=== PATIENT | female | born 2000 | race Caucasian/White ===

== ENCOUNTER 2020-05-28 12:44 | Emergency (ER) | payer BC, SELFPAY ==
--- NOTE | ~2020-05-28 | US_ITS ---
EXAMINATION: US OB <=14 wk fetus w TV DATE: 05/28/2020 13:40 INDICATION: Vaginal bleeding during first trimester TECHNIQUE: Real-time pelvic transabdominal and transvaginal ultrasound was performed. COMPARISON: None. FINDINGS: The uterus measures 7.9 x 4.5 x 4.2 cm. No intrauterine gestational sac is identified. The left ovary is not visualized however no left adnexal abnormality is seen. The right ovary measures 2 .3 x 2.2 x 3.5 cm and contains multiple cysts/follicles. There is no free fluid in the pelvis. IMPRESSION: 1. of unknown location. Although no intrauterine gestational sac is seen, this may be due t o early gestation. If the patient is clinically stable, recommend followup with serial beta-hCG and u ltrasound. Reviewed, dictated and finalized at location [facility]. IMPRESSION: 1. of unknown location. Although no intrauterine gestational sac is s een, this may be due to early gestation. If the patient is clinically stable, r ecommend followup with serial beta-hCG and ultrasound.
[2020-05-28 12:55] VITALS: BP 160/101; PULSE 92; RESP 14; TEMP 36.6; O2SAT 99
--- NOTE | 2020-05-28 13:30 | ED.FEMALEGU ---
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 Today developed cramps, vaginal bleeding with a lot of blood clots. Patient is 1 para 0 0. Last menstrual period April 04. Patient does not smoke or drink or uses marijuana, denies any fever, chills, nausea, vomiting. Related Data Allergies Allergy/AdvReac Type Severity Reaction Status Date / Time No Known Allergies Allergy Unverified 10/08/17 03:17 Review of Systems Review of Systems: Narrative: CONSTITUTIONAL: Denies fever, chills, or sweats. EYES: Denies visual changes, redness, or discharge. ENT: Denies rhinorrhea, congestion, sore throat, or otalgia. CARDIOVASCULAR: Denies chest pain, palpitations, or edema. RESPIRATORY: Denies cough or dyspnea. GASTROINTESTINAL: Denies abdominal pain, nausea, vomiting, or diarrhea. GENITOURINARY: Denies dysuria or hematuria. SKIN: Denies rash or itching. MUSCULOSKELETAL: Denies back pain, joint pain, or myalgia. NEUROLOGIC: Denies headache, numbness, or weakness. PSYCHIATRIC: Denies anxiety or depression. PMFSH Family History Family History Mother Family history of thyroid disease Patient's mother is in good health Grandparent Family history of lung cancer Father Patient's father is in good health Sibling Patient's brother is in good health Social History Social History Smoking status: Never smoker Alcohol intake: never Exam Narrative: Exam Narrative: General appearance: Well-developed, well-nourished, anxious Skin: Normal color Chest and respiratory: Airway patent, no respiratory distress, no accessory muscle use Heart: Regular rate/rhythm Abdomen: Soft, nontender, no organomegaly, quiet bowel sounds Vascular: Normal peripheral pulses, normal capillary refill. Musculoskeletal: Normal range of motion, nontender back Neurologic: Alert and oriented ?3, CUT TOBACCO BULKER is normal as tested, no gross motor deficit : External Female Exam: normal external appearance Speculum Exam - Vagina: normal appearance of the vagina and vaginal bleeding (Slight acute vaginal bleeding, 2 long Q-tips were enough to dry the whole v) Bimanual exam- vagina & uterus: normal bimanual exam Bimanual Exam- Adnexa, other: normal adnexae Course Course Emergency Course: Stable Vital Signs Vital signs: Vital Signs Temperature 36.6 C 05/28/20 12:55 Pulse Rate 92 05/28/20 12:55 Respiratory Rate 14 05/28/20 12:55 Blood Pressure 160/101 H 05/28/20 12:55 Pulse Oximetry 99 05/28/20 12:55 Temperature 36.6 C 05/28/20 12:55 Pulse Rate 92 05/28/20 12:55 Respiratory Rate 14 05/28/20 12:55 Blood Pressure 160/101 H 05/28/20 12:55 Pulse Oximetry 99 05/28/20 12:55 MDM - Female Genitourinary MDM Narrative Medical decision making narrative: Early with vaginal bleeding. Ectopic , miscarriage are my concern. Labs, pelvic ultrasound, pelvic exam ordered further plan to follow. Blood work-up and the pelvic ultrasound showed that the patient is not . High likely her home test was false positive patient probably could not determine if was positive or negative. Differential Diagnosis Differential diagnosis: Likely urinary tract infection and other (Miscarriage, ectopic )
[2020-05-28] MEDS: SODIUM CHLORIDE 0.9% IV 1,000 ML 999 ML IV CONT (13:46)
[2020-05-28 13:58] LABS: Add Urine Microscopic? YES; Appearance Urine Cloudy (Clear); Bacteria Urine Trace /hpf; Bilirubin Urine Negative (Negative); Blood Urine 3+ (Negative); Color Urine Yellow (Yellow); Glucose Urine UA Negative (Negative); Ketones Urine Negative (Negative); Leukocyte Esterase Ur Negative LEU/UL (Negative); Mucus Urine Heavy /lpf; Nitrate Urine Negative (Negative); Protein Urine 2+ mg/dL (Negative); RBC Urine >75 /hpf (0-2); Specific Grav Ur 1.025 (1.001-1.035); Squamous Epithelial Cell Urine Many /hpf (Few); Urobilinogen Urine Negative mg/dL (<2.0); WBC Urine 16-20 /hpf
[2020-05-28 14:02] LABS: Basophils Percent Auto 0.6 % (0.2-1.2); Eosinophils Absolute Auto 0.1 K/mm3 (0-0.3); Eosinophils Percent Auto 0.9 % (0-4.4); Hemoglobin 12.3 g/dL (12.0-15.0); Immature Granulocyte Absolute 0.02 K/mm3 (0.00-0.031); Immature Granulocyte Percent A 0.3 % (0-0.5); Lymphocytes Absolute Auto 1.42 K/mm3 (0.9-3.2); Lymphocytes Percent Auto 21.6 % (18.3-44.2); Mean Corpuscular HGB Conc 33.2 g/dl (32-36); Mean Corpuscular Hemoglobin 28.4 pg (26-34); Mean Corpuscular Volume 85.5 fl (80-100); Mean Platelet Volume 9.8 fl (7.4-10.4); Monocytes Absolute Auto 0.5 K/mm3 (0.1-0.6); Monocytes Percent Auto 7.3 % (2.6-8.5); Neutrophils Absolute Auto 4.5 K/mm3 (1.3-6.7); Neutrophils Percent Auto 69.3 % (45.5-73.1); Platelet Count Result 283 k/mm3 (150-375); Red Blood Count 4.33 M/mm3 (4.2-5.4); Red Cell Distribution Width 12.2 % (11.5-14.5); White Blood Count 6.6 K/mm3 (4.5-10.0)
[2020-05-28 14:04] LABS: Alanine Aminotransferase 18 U/L (4-35); Albumin Level 4.2 g/dL (3.5-5.1); Alkaline Phosphatase 34 U/L (38-126); Anion Gap 6 mmol/L (8-16); Aspartate Amino Transferase 30 U/L (14-36); Bilirubin,Total 0.5 mg/dL (0.2-1.3); Blood Urea Nitrogen 8 mg/dL (7-17); Calcium 8.9 mg/dL (8.4-10.2); Carbon Dioxide 23 mmol/L (22-30); Chloride 111 mmol/L (98-107); Estimated CRCL calculation 132 ml/min; Estimated Glomerular Filt Rate > 60; Glucose 114 mg/dL (65-105); Sodium 140 mmol/L (137-145)
[2020-05-28 14:18] LABS: Beta HCG Quantitative < 2.39 mIU/ML
[2020-05-28 15:00] VITALS: BP 154/70; PULSE 66; RESP 12; O2SAT 99
== END 2020-05-28 15:00 | disposition home or self-care (01) ==
PROVIDERS: Emergency Provider Emergency Medicine; PCP Family Medicine
DX: N93.9 Abnormal uterine and vaginal bleeding, unspecified (principal)
CPT/HCPCS: 36415; 76801; 76817; 80053; 81001; 84702; 85025; 85461; 87086; 96360; 99284; J7030

== ENCOUNTER 2020-11-22 15:08 | Outpatient (CLI) | payer BC, SELFPAY | END 2020-11-22 15:09 | disposition home or self-care (01) | LOC: ANHLAB 15:10 | PROVIDERS: PCP Family Medicine; Visit Provider Obstetrics & Gynecology | DX: O36.0130 Maternal care for anti-D [Rh] antibodies, third trimester, not applicable or unspecified (principal); Z3A.00 Weeks of gestation of pregnancy not specified | CPT/HCPCS: 36415; 85461 ==

== ENCOUNTER 2023-06-25 08:12 | Outpatient (CLI) | payer BC, SELFPAY ==
--- NOTE | ~2023-06-25 | US_ITS ---
US breast BI complete DATE: 06/25/2023 10:22 INDICATION: Bilateral upper breast rash and redness since February. Patient is currently breast-feedi ng. TECHNIQUE: Real-time imaging of both complete breasts including all 4 quadrants and subareolar area o f each breast. COMPARISON: None FINDINGS: In the right subareolar area there is a 3.5 x 7x 11 mm cyst or dilated duct. Prominent bila teral ducts. No suspicious mass or shadowing is detected in either breast. IMPRESSION: No sonographic evidence of malignancy Reviewed, dictated and finalized at [facility]. Reviewed, dictated and finalized at location [facility].
== END 2023-06-25 08:13 | disposition home or self-care (01) ==
DX: N64.59 Other signs and symptoms in breast (principal)
CPT/HCPCS: 76641

== ENCOUNTER 2024-09-16 12:26 | Outpatient (CLI) | payer BC, SELFPAY ==
--- OUTSIDE RECORDS SUMMARY | 2024-09-16 12:32 | XMS_ITS | Data Portability ---
Author Organization [place] [facility], Main Office Address [address] [place] [address] Care Team Providers Care Dumpcart Driver Name Role Phone LOUISROSSY CHIRINOS Primary Care Provider Assessment No assessment recorded. Plan of Treatment Reminders Order Date Submit Date Provider Last Modified By Organization Details Last Modified Time Details Appointments None recorded. Lab glycohemogl obin, total, blood [address] (Lab), [address] [place], [address], 4 08:24:35 TSH, serum or plasma [address] (Lab), [address] [place], [address], 4 08:24:36 Referral None recorded. Procedures None recorded. Surgeries None recorded. Imaging US, breast, bilateral - YURIY, concerns for inflammator y breast cancers [address] [facility] [place] [place] [facility], [address] [address], [place], [address], 4 13:11:22 Medication Orders fluticasone propionate 50 mcg/actuati on nasal spray,suspe nsion 2023 [facility] #[id number], [address] [place], [place], [id number], 4 09:29:53 cetirizine 10 mg tablet 2023 [facility] #[id number], [address] [facility], [place], [place], [id number], 4 09:29:51 doxycycline hyclate 100 mg capsule 2023 024 [facility] #90372, [address] [facility], [place], [place], [id number], 4 09:29:52 Patient TargetsNo targets recorded. Patient InstructionsNo instructions recorded. Reason for Referral None Reported. Results Created Date Observation Date Name Description Value Unit Range Abnormal Flag Note LastModifiedBy Organization Detail LastModifiedTime 06/25/19 24 06/25/2023 , radha owens No observ ation record ed. [address], [place], [address], 06/25/2023 15:08:24 Result Notes None recorded. Problems Name Problem SNOMED Code Status Onset Date Resolution Date Notes Provider Name and Address Organization Details Recorded Time Weight gain 0380441 Active 2023 RISSA Neff [address], [address], [place], [address], tado 4 09:55:11 Bilateral changes in skin of breasts 96651977662634 105 Active 2023 RISSA Neff [address], [address], [place], [address], tado 4 10:00:55 Serous otitis media 17676812 Active 2023 RISSA Neff [address], [address], [place], [address], tado 4 09:26:51 Serous otitis media 49469369 Active 2023 RISSA Neff [address], [address], [place], [address], tado 4 09:27:04 Problem Notes None recorded. Procedures Surgical History Date Name Laterality Status Provider Name and Address Organization Details Recorded Time delivery completed Zoey Berry RN [place] - [facility] 06/12/2023 09:30:54 Imaging Results None recorded. Procedure Notes None recorded. Medical Equipment None Reported. Allergies No known drug allergies Medications Name Sig Start Date Stop Date Status Note LastModified by Organization Details LastModified Time dicloxacill in 500 mg capsule TAKE 1 CAPSULE BY MOUTH FOUR TIMES DAILY FOR 10 DAYS DIRECTED 01/06 completed Not Available Not Available Not Available prednisone 10 mg tablet 01/06 completed Not Available Not Available Not Available doxycycline hyclate 100 mg capsule TAKE 1 CAPSULE BY MOUTH TWICE DAILY FOR 5 DAYS DIRECTED active Not Available Not Available No t Available cetirizine 10 mg tablet TAKE 1 TABLET BY MOUTH EVERY DAY NEEDED active Not Available Not Available No t Available fluconazole 150 mg tablet TAKE 1 TABLET BY MOUTH FOR 1 DOSE THEN 1 TABLET AFTER 7 DAYS IF SYMPTOMS PERSIST 01/06 completed Not Available Not Available Not Available diclofenac ER 100 mg tablet,exte nded release 24 hr TAKE 1 TABLET BY MOUTH EVERY DAY NEEDED 01/06 completed Not Available Not Available Not Available hydrocodone 5 mg-acetamin ophen 325 mg tablet TAKE 1 TO 2 TABLETS BY MOUTH EVERY 4 HOURS NEEDED FOR PAIN 06/11 completed Not Available Not Available Not Available triamcinolo ne acetonide 0.1 % topical cream 01/06 completed Not Available Not Available Not Available citalopram 20 mg tablet 06/11 completed Not Available Not Available Not Available triamcinolo ne acetonide 0.025 % topical cream 06/11 completed Not Available Not Available Not Available docusate sodium 100 mg capsule TAKE 1 CAPSULE BY MOUTH 2 TIMES DAILY WITH GLASS OF WATER 06/11 completed Not Available Not Available Not Available ibuprofen 600 mg tablet TAKE 1 TABLET BY MOUTH EVERY 6 HOURS NEEDED FOR PAIN 06/11 completed Not Available Not Available Not Available fluticasone propionate 50 mcg/actuati on nasal spray,suspe nsion SHAKE LIQUID AND USE 1 SPRAY IN EACH NOSTRIL EVERY DAY NEEDED active Not Available Not Available No t Available amoxicillin 875 mg-potassiu m clavulanate 125 mg tablet TAKE 1 TABLET BY MOUTH TWICE DAILY FOR 10 DAYS 06/11 completed Not Available Not Available Not Available amoxicillin 500 mg-potassiu m clavulanate 125 mg tablet TAKE 1 TABLET BY MOUTH EVERY 12 HOURS FOR 7 DAYS active Not Available Not Available No t Available daily active Not Available Not Avai lable Not Available FeroSul 325 mg (65 mg iron) tablet TAKE 1 TABLET BY MOUTH ONCE DAILY WITH BREAKFAST active Not Available Not Available No t Available Vitals Date Recorded Body weight Body mass index (BMI) Body height Body temperature Heart rate Respiratory rate Oxygen saturation Oxygen saturation in Arterial blood by Pulse oximetry Systolic And Diastolic Provider Name and Address Organization Details Last Updated DateTime 4 862738. 01 g 42.9 kg/m2 170.18 cm 96.9 [degF] 87 /min 20 /min 98 % 98 % 120/80 mm[Hg] Zoey Berry RN [facility] 09:29:39 Date Recorded Body height Body mass index (BMI) Body weight Body temperature Heart rate Oxygen saturation Oxygen saturation in Arterial blood by Pulse oximetry Systolic And Diastolic Provider Name and Address Organization Details Last Updated DateTime 4 170.18 cm 42.1 kg/m2 253522. 7 g 97.6 [degF] 95 /min 98 % 98 % 130/70 mm[Hg] Zoey Berry RN [facility] 4 09:17:01 Social History Question Answer Notes LastModified by Organization Details LastModified Time Tobacco Smoking Status Never Smoker Zoey Berry RN [facility] 06/12/2023 09:31:41 Do You Have An Advance Directive? No Information not available 06/12/2023 Is Blood Transfusion Acceptable In An Emergency? Yes Information not available 06/12/2023 What Is Your Level Of Caffeine Consumption? Occasional Coffee Information not available 06/12/2023 What Is Your Code Status? Full Code Information not available 06/12/2023 In The 14 Days Before Symptom Onset, Have You Had Close Contact With A [facility] While That Case Was Ill? No Information not available 06/12/2023 In The 14 Days Before Symptom Onset, Have You Had Close Contact With A Person Who Is Under Investigation For COVID-19 While That Person Was Ill? No Information not available 06/12/2023 What Type Of Diet Are You Following? VEGETARIAN Information not available 06/12/2023 What Is The Highest Grade Or Level Of School You Have Completed Or The Highest Degree You Have Received? [id number] Information not available 06/12/2023 Have There Been Any Changes To Your Family Or Social Situation? No Information not available 06/12/2023 Do You Use Insect Repellent Routinely? Yes Information not available 06/12/2023 Where Do You Live? SingleLevelHouse Information not available 06/12/2023 Do You Have A Medical Power Of Clerical Order Filler? No Information not available 06/12/2023 How Many Children Do You Have? 2 And Information not available 01/07/2024 Do You Have Any Pets? Yes Information not available 06/12/2023 What Is Your Relationship Status? Information not available 06/12/2023 Do You Use Your Seat Belt Or Car Seat Routinely? Yes Information not available 06/12/2023 Do You Have Smoke And Carbon Monoxide Detectors In Your Home? Yes Information not available 06/12/2023 Are You Passively Exposed To Smoke? No Information not available 06/12/2023 Are There Any Smokers In Your House? No Information not available 06/12/2023 Do You Participate In Social Media? No Information not available 06/12/2023 Do You Use Sunscreen Routinely? Yes Information not available 06/12/2023 Have You Recently Traveled Abroad? No Information not available 06/12/2023 Sex: Unknown Functional Status Question Answer Note LastModified by Organizat ion Details LastModified Time Do you use any illicit or recreational drugs? No Information not available 06/12/2023 What is your level of alcohol consumption? None Information not available 06/12/2023 Are you currently employed? No Information not available 06/12/2023 What is your exercise level? None Information not available 06/12/2023 Mental Status Question Answer Note LastModified by Organization D etails LastModified Time Do you feel stressed (tense, restless, nervous, or anxious, or unable to sleep at night)? [id number] Information not available 06/12/2023 Family History Relationship Description Onset Age of this Age Resolved Age Notes LastModified by Organization Details LastModified Time Mother Hypothyroidi sm Not available 2023 09:30:01 Paternal Grandfather Malignant neoplasm of lung Not available 2023 09:30:22 Maternal Grandmother Malignant neoplasm of lung Not available 2023 09:30:22 Medical History No medical history recorded. Gynecological History Statement/Question Response Date of Last Colonoscopy Flow Heavy Most Recent Bone Density Date of LMP 06/09/2023 Frequency of Cycle (Q days) 32 Menses Monthly Y Duration of Flow (days) 7 Date of Last Pap Smear Age at Menarche 11 Most Recent Mammogram Obstetrics History GPAL:G 0 P 0 0 0 0 Past Encounters Encounter ID Performer Location Encounter Start Date Encounter Closed Date Diagnosis/Indication Diagnosis SNOMED-CT Code Diagnosis ICD10 Code Diagnosis Note [id number] Yovany Mobley MD [address] [address] 06/12/2023 09:19:04 06/12/2023 10:25:08 Weight gain 4383632 R63.5 Bilateral changes in skin of breasts 5356315584 2955463 N64.59 [id number] Yovany Mobley MD [address] [address] 01/07/2024 09:01:56 01/07/2024 09:36:45 Serous otitis media 59639634 H65.93 Health Concerns Section Related Observation LastModified by Organization Detai ls LastModified Time None Recorded Concern Status LastModified by Organization Details LastModified Time None Recorded Advance Directives Directive N: Payers Insurance Date Sequence Insurance Name Policy Number Policy Maguire Covered Member ID Maguire Member ID Guarantor Name 02/20/2024 1 [place] 106 Yulisa Mota [id number] Jennifer Tirado Notes Date Note Type Note Provider Name and Address Organization Details Recorded Time 06/12/2023 text/html Jennifer Tirado is a 23 year old female patient here to establish care. She has not previously been seen by this office. She did have some baby blues after her most recent . She took medications for a short time but weaned off with her OB. She has noticed weight gain despite eating well and exercising. She is nursing. She has had a recurrent rash on her left breast since February. This is red and inflamed. It is itchy, painful, and hot to touch. It will come and be very bothersome for a few days then resolve and come back. She has done antifungals and ointments with no relief. She would like a referral to see dermatology. She has a almost 2 year old and a 7 month old. Flu shot: declinesCOVID vaccines: 2020, 2020, 2021Tdap: 2022WWE: 10/2022, managed by OBEye exam: goes regularlyDental exam: goes regularly RISSA Neff [address] [facility] [place], [address], [place], [address], [facility] 06/12/2023 10:18:05 01/07/2024 text/html Jennifer Tirado is a 23 year old female patient here today with sick concerns. She states that she began with a deep productive cough (brown/green phlegm) on 12/30, ear fullness. She had a fever for 3 days but has resolved. Associated fatigue, ear pain, sore throatShe is currently 22 weeks RISSA Neff [address] [facility] [place], [address], [place], [address], [facility] 01/07/2024 09:31:02 OBGyn Episode No OBEpisode recorded.
--- OUTSIDE RECORDS SUMMARY | 2024-09-16 12:32 | XMS_ITS | Clinical Summary ---
Author Organization [facility] Address [address] [place] [address] Phone Care Team Providers Care Main Line Assembler Name Role Phone Provider, Not On File Primary Care Provider Unav ailable Allergies No known active allergies Medications No known medications Social History Tobacco Use Types Packs/Day Years Used Date Smoking Tobacco: Never Smokeless Tobacco: Never Tobacco Cessation:Counseling Given: Not Answered Estimated Date of Delivery Comme nts Yes 05/11/2024 Sex and Gender Information Value Date Recorded Sex Assigned at Not on file Legal Sex Female 8:06 PM CDT Gender Identity Not on file Sexual Orientation Not on file Last Filed Vital Signs Vital Sign Reading Time Taken Comments Blood Pressure 136/73 12/21/2023 12:00 AM CDT Pulse 90 12/21/2023 12:15 AM CDT Temperature 37.2 C (98.9 F) 12/20/2023 8:26 PM CDT Respiratory Rate 14 12/21/2023 12:15 AM CDT Oxygen Saturation 99% 12/21/2023 12:15 AM CDT Inhaled Oxygen Concentration - - Weight 121.1 kg (267 lb) 12/20/2023 8:26 PM CDT Height 172.7 cm (5' 8) 12/20/2023 8:26 PM CDT Body Mass Index 40.6 12/20/2023 8:26 PM CDT Plan of Treatment Health Maintenance Due Date Last Done Comments Hepatitis C Virus (HCV) Screening 1999 Pap Smear 02/29/2020 SARS-COV-2 Immunization ( season) 2023 12/07/2020, 11/16/2020 Influenza Immunization (#1) 2024 Respiratory Syncytial Virus (RSV) Immunization (Adult) (1 - 1-dose 75+ series) 2074 Hepatitis B Immunization Completed 001, 1999, 1999 Pneumococcal Immunization Combined Completed 11/01/2000, 06/20/2000 Human Papillomavirus (HPV) Immunization Completed 09/29/2010, 06/08/2009, 05/21/2008 TdaP Immunization Completed 08/21/2022, , 05/03/2015, Additional history exists Meningococcal Immunization (ACWY) Aged Out No longer eligible based on patient's age to complete this topic Rotavirus Immunization Aged Out No lo nger eligible based on patient's age to complete this topic Insurance [facility] Care Teams Main Line Assembler Relationship Specialty Start Date End Date Provider, Not On File [place] PCP - General 12/20/23
--- OUTSIDE RECORDS SUMMARY | 2024-09-16 12:32 | XMS_ITS | Referral Summary ---
Author Organization [facility] [address] Address [address] [place] [address] Care Team Providers Care Fourdrinier Operator Name Role Phone Vince Nicole MD Unavailable [phone] Unknown, Notinfile Primary Care Provider Unavail able Keri Santana CN Unavailable [phone] Encounters Date Type Department Care Team Description 07/31/2024 Telephone [facility] [address] [place] [address] Bonnie Garcia CNM 07/13/2024 Orders Only [facility] [address] [place] [address] Bonnie Garcia CNM Acute mastitis (Primary Dx) from Last 3 Months Allergies No known active allergies Medications 25/iron fum/folic/dha (-1 ORAL)Indication s:Vitamin Deficiency Prevention Active ferrous sulfate 325 mg (65 mg of elemental iron) tabletIndicatio ns:Iron Deficiency Anemia Take 1 tablet (65 mg of elemental iron total) by mouth 3 (three) times a day with meals Active Active Problems Problem Noted Date Diagnosed Date S/P section 05/13/2024 Gestational hypertension affecting fourth pregna ncy 04/20/2024 Gestational hypertension, third trimester 2024 Headache above the eye region 2024 Visual changes 2024 RUQ pain 2024 Otitis media 03/18/2023 Assessment & Plan (03/18/2023 2:29 PM SUIT ATTENDANT): URI with OM, right. Will treat with augmentin. May take otc medications for symptoms. F/u prn Morbid obesity with BMI of 40.0-44.9, adult 03/04 Assessment & Plan (03/18/2023 2:32 PM SUIT ATTENDANT): Discussed CHIP program offered through [facility]. Briefly discussed medications for obesity including phentermine, wegovy, zepbound and limitations, risks/ benefits of them. Patient is still and believes she will be for another 6 months. We will have her return in 6 months for physical and to rediscuss any adjustments/ programs/ medications she may want to try. Will give order for lab work today for baseline screening. Anemia complicating in third trimester 09/05/2022 History of 2 sections 03/12/2022 Resolved Problems Problem Noted Date Diagnosed Date Resolved Date 35 weeks gestation of 04/07/2024 05/13/2024 37 weeks gestation of 04/07/2024 05/13/2024 Decreased movements in third trimester 05/13/2024 29 weeks gestation of 2024 05/13/2024 Failed instrumental induction of labor 10/20/2022 03/18/2023 Preeclampsia, third trimester 10/19/2022 03/18/2023 Pruritic rash 04/03/2022 03/18/2023 Encounter for screening of mother 04/03/2022 03/18/2023 Abnormal vaginal bleeding 08/09/2021 Overview (08/09/2021): Added automatically from request for surgery [id number] with 38 completed weeks gestation 06/28/2021 03/18/2023 Supervision of normal 06/27/2021 03/18/2023 Obesity complicating pregnan cy, first trimester 06/27/2021 03/18/2023 Breech presentation, no version 06/27/2021 03/18/2023 Immunizations Immunization Administration Dates Next Due DTaP, Unspecified 05/10/2004, 1,1999,07/24,1999 HPV, Quadrivalent 09/29/2010,06/08/2009,05/22/19 09 Hep A, Unspecified 06/08/2009,05/21/2008 Hep B, Unspecified 06/20/2000,1999, 000 HiB 06/20/2000,1999,1999 Influenza, Unspecified 03/18/2023(Deferred: Mily ent Refused) MMR 05/10/2004,06/20/2000 Meningococcal B, unspecified 05/03/2015,09/30/19 11 Pneumococcal Conjugate PCV 13 11/01/2000, 001 Polio, Unspecified 05/10/2004, 0,1999,05/18 RSV, Bivalent, Protein Subun it Rsvpref, Diluent (Abrysvo) 03/25/2024 Tdap 03/11/2024, 3,05/09/2021,05/02,09/29/2010 Varicella 06/20/2000 Social History Tobacco Use Types Packs/Day Years Used Date Smoking Tobacco: Never Tobacco Cessation:Counseling Given: Not Answered OASIS D0700: Social Isolation Answer Da te Recorded Frequency of experiencing loneliness or isolatio n Never 03/18/2024 Social Connection and Isolat ion Panel [NHANES] Answer Date Recorded In a typical week, how many times do you talk on the phone with family, friends, or neighbors? More than three times a week 04/20/2024 How often do you get togethe r with friends or relatives? More than three times a week 04/20/2024 Attends Yazidi Services Not on file 04/20 Active Member of Clubs or Organizations Not on f ile 04/20/2024 Attends Club or Organization Meetings Not on smita e 04/20/2024 Marital Status Not on file 04/20/2024 AUDIT-C Answer Date Recorded Q1: How often do you have a drink containing alc ohol? Never 09/01/2022 Average Number of Drinks Not on file 023 Frequency of Binge Drinking Not on file 03/2022 Overall Financial Resource Strain (CARDIA) Answe r Date Recorded How hard is it for you to pa y for the very basics like food, housing, medical care, and heating? Not very hard 04/20/2024 PHQ-2 Answer Date Recorded PHQ-2 Total Score (If total score is 3 or more points, staff should administer the PHQ-9) 0 04/20/2024 [facility] - Occupational Stress Questionnaire Answer Date Recorded Do you feel stress - tense, restless, nervous, or anxious, or unable to sleep at night because your mind is troubled all the time - these days? Only a little 04/20/2024 Hunger Vital Sign Answer Date Recorded Within the past 12 months, y ou worried that your food would run out before you got the money to buy more. Never true 04/20/19 25 Ran Out of Food in the Last Year Not on file 04/20/2024 PRAPARE - Transportation Answer Date Re corded Lack of Transportation (Medical) Not on file 04/20/2024 In the past 12 months, has l ack of transportation kept you from meetings, work, or from getting things needed for daily living? No 04/20/2024 [place] Depression Scale Answer Date Recorded [place] Depression Scale Total 1 06/09/2024 The thought of harming myself has occurred to me . Never 06/09/2024 PHQ-9 Answer Date Recorded PHQ-9 Total Score 0 04/20/2024 Housing Stability Vital Sign Answer Justus e Recorded In the last 12 months, was t here a time when you were not able to pay the mortgage or rent on time? No 04/20/2024 Number of Times Moved in the Last Year Not on fi le 04/20/2024 At any time in the past 12 m [facility], were you homeless or living in a senior living (including now)? No 04/20/2024 Personal Safety Answer Date Recorded Have you ever been in or are you currently in a harmful physical or emotional relationship or is someone making you feel afraid or unsafe? Denies 04/20/2024 Comments No Sex and Gender Information Value Date Recorded Sex Assigned at Not on file Legal Sex Female 9:11 AM SUIT ATTENDANT Gender Identity Not on file Sexual Orientation Not on file Last Filed Vital Signs Vital Sign Reading Time Taken Comments Blood Pressure 132/80 05/13/2024 1:46 PM CDT Pulse 84 04/22/2024 8:47 AM SUIT ATTENDANT Temperature 36.4 C (97.5 F) 04/22/2024 8:47 AM SUIT ATTENDANT Respiratory Rate 16 04/22/2024 8:47 AM SUIT ATTENDANT Oxygen Saturation 100% 04/22/2024 8:47 AM SUIT ATTENDANT Inhaled Oxygen Concentration - - Weight 117.5 kg (259 lb) 06/09/2024 2:39 PM CDT Height 170.2 cm (5' 7.01) 06/09/2024 2:39 PM CD T Body Mass Index 40.56 06/09/2024 2:39 PM CDT Plan of Treatment Not on file Procedures Procedure Name Priority Date/Time Associated Diagnosis Comments HEPATITIS C ANTIBODY Routine 10/04/2023 1:59 PM CDT Encounter for screening of mother from Last 3 Months or Most Recently Relevant to Health Maintenance Results * Hepatitis C antibody Blood (10/04/2023 1:59 PM CDT) Hep C Ab Nonreactive Nonreactive Comment: Interpretive Data Nonreactive: Antibodies to HCV not detected. Does NOT exclude the possibility of recent exposure to HCV. Equivocal: Equivocal for HCV antibodies. Supplemental molecular testing will be automatically performed to determine infection status in accordance with current CDC screening recommendations. Reactive: Positive for HCV antibodies. This may represent current or past HCV infection. Supplemental molecular testing will be automatically performed to determine current infection status in accordance with current CDC screening recommendations. Interpretive data was last revised on 2019. Blood 10/04/2023 1:59 PM CDT 10/04/2023 7:17 PM CDT us Keri Santana CNM LAB MICROBIOLOGY - GENERAL ORD ERABLES Edited Result - Final [facility] [address] [place] [address] from Last 3 Months or Most Recently Relevant to Health Maintenance Insurance [employer] [facility] Advance Directives For more information, please contact: [phone] * Full Code (Latest Code Status on File) Date Activated Date Inactivated Comments 04/21/2024 4:20 AM 04/22/2024 7:23 PM * Full Code Date Activated Date Inactivated Comments 04/20/2024 4:43 PM 04/21/2024 4:20 AM Full CPR in case of cardiopulmonary arrest * Full Code Date Activated Date Inactivated Comments 04/07/2024 1:56 AM 04/07/2024 5:18 PM * Full Code Date Activated Date Inactivated Comments 10/20/2022 5:50 AM 10/22/2022 4:13 PM * Full Code Date Activated Date Inactivated Comments 10/19/2022 10:21 PM 10/20/2022 5:50 AM Full CPR in case of cardiopulmonary arrest Care Teams Fourdrinier Operator Relationship Specialty Start Date End Date Unknown, Notinfile PCP - General 04/15/24 Vince Nicole MD [address] [place] [address] Ear Nose Throat Physician Obstetrics and Gynecology 06/30/21 Keri Santana CNM [address] [place] [address] Business Development Intern Obstetrics and Gynecology 04/22/24
--- OUTSIDE RECORDS SUMMARY | 2024-09-16 12:32 | XMS_ITS | Clinical Summary ---
Author Organization [facility] [address] Address [address] [place] [id number] Care Team Providers Care Electrophysiologist Name Role Phone Vince Nicole MD Unavailable [phone] Unknown, Notinfile Primary Care Provider Unavail able Keri Santana Unavailable [phone] Allergies No known active allergies Medications 25/iron [...] 03/18/2023 Assessment & Plan (03/18/2023 2:29 PM REVENUE CYCLE MANAGER): URI with OM, right. Will treat with augmentin. May take otc medications for symptoms. F/u prn Morbid obesity with BMI of 40.0-44.9, adult 03/04 Assessment & Plan (03/18/2023 2:32 PM REVENUE CYCLE MANAGER): Discussed CHIP program offered through [facility]. Briefly discussed medications for obesity including [...] (08/09/2021): Added automatically from request for surgery [id number] with 38 completed weeks gestation 06/28/2021 03/18/2023 Supervision of normal 06/27/2021 03/18/2023 Obesity complicating pregnan cy, first trimester 06/27/2021 03/18/2023 Breech presentation, no version 06/27/2021 03/18/2023 Encounters Date Type Department Care Team Description 07/31/2024 Telephone [facility] [address] [place] [address] [address] [place] [address] Bonnie Garcia CNM 07/13/2024 Orders Only [facility] at [address] [phone] Bonnie Garcia CNM Acute mastitis (Primary Dx) from Last 3 Months Immunizations Immunization Administration Dates Next Due DTaP, Unspecified 05/10/2004, 1,1999,07/24,1999 HPV, Quadrivalent 09/29/2010,06/08/2009,05/22/19 09 Hep A, Unspecified 06/08/2009,05/21/2008 Hep B, Unspecified 06/20/2000,1999, 000 HiB 06/20/2000,1999,1999 Influenza, Unspecified 03/18/2023(Deferred: Mily ent Refused) MMR 05/10/2004,06/20/2000 Meningococcal B, unspecified 05/03/2015,09/30/19 11 Pneumococcal Conjugate PCV 13 11/01/2000, 001 Polio, Unspecified 05/10/2004, 0,1999,05/18 RSV, Bivalent, Protein Subun it Rsvpref, Diluent (Abrysvo) 03/25/2024 Tdap 03/11/2024, 3,05/09/2021,05/02,09/29/2010 Varicella 06/20/2000 Surgical History Surgery Date Site/Laterality Comments TONSILLECTOMY as child SECTION breech and hypertension DILATION AND CURETTAGE OF UTERUS Medical History Medical History Date Comments Morbid obesity with BMI of 40.0-44.9, adult (HCC ) hemorrhage Failed instrumental induction of labor 10/20/2022 Preeclampsia, third trimester 10/19/2022 Previous section complicating , with delivery Breech presentation, no version 06/27/2021 Family History Medical History Relation Name Comments Atrial fibrillation Maternal Grandmother Family history of atrial fibrillation - (Added by TW Conv) Supraventricular tachycardia Mother Family history of supraventricular tachycardia - (Added by TW Conv) Atrial fibrillation Mother's Brother Fami ly history of atrial fibrillation - (Added by TW Conv) Relation Name Status Comments Brother Alive Father Alive Maternal Grandmother Mother Alive Mother's Brother Social History Tobacco Use Types Packs/Day Years [...] than three times a week 04/20/2024 Attends Judaism Services Not on file 04/20 Active Member [...] staff should administer the PHQ-9) 0 04/20/2024 [facility] - Occupational Stress [...] things needed for daily living? No 04/20/2024 Cro[place] Depression Scale Answer Date Recorded [place] Depression Scale Total 1 06/09/2024 The thought [...] any time in the past 12 [facility], were you homeless or living in a fci (including now)? No 04/20/2024 Personal Safety Answer Date Recorded Have you ever been in or are you currently in a harmful physical or emotional relationship or is someone making you feel afraid or unsafe? Denies 04/20/2024 Comments No Sex and Gender Information Value Date Recorded Sex Assigned at Not on file Legal Sex Female 9:11 AM REVENUE CYCLE MANAGER Gender Identity Not on file Sexual Orientation Not on file Obstetrics History Para Term AB IAB SAB Ectopic Multiple Livin g Live Births 4 3 3 1 1 0 3 3 Date Outcome GA Total Labor Labor/04/06 Weight Sex Type Anes PTL Angela A1 A5 Name Clin SAB 6w0 d 2021 Term 38w 2d 1h 02m 1h 02m 3.185 kg (7 lb 0.4 oz) F CS-LT ranv Epidur al N Livin g 5 9 SAYRA DELGADO Jeffr ey S., MD Complications:None Delivery Location:This Facil ity ([facility]) Comments:See Dr. Gabe kauffman's note 2022 Term 38w 3d 3.505 kg (7 lb 11.6 oz) M C-Sec tion Epidur al N Livin g 8 9 SHARI DELGADO Jeffr ey S., MD Complications:Other (Comment ) Delivery Location:This Facil ity ([facility]) 2024 Term 37w 0d 0h 03m 0h 03m 2.795 kg (6 lb 2.6 oz) F C-Sec tion Combin ed Spinal /Epidu ral N Livin g 9 9 Michelle De Jesus MD Complications:Other Excessiv e Bleeding Delivery Location:This Facil ity ([facility]) Last Filed Vital Signs Vital Sign Reading Time Taken Comments Blood Pressure 132/80 05/13/2024 1:46 PM CDT Pulse 84 04/22/2024 8:47 AM REVENUE CYCLE MANAGER Temperature 36.4 C (97.5 F) 04/22/2024 8:47 AM REVENUE CYCLE MANAGER Respiratory Rate 16 04/22/2024 8:47 AM REVENUE CYCLE MANAGER Oxygen Saturation 100% 04/22/2024 8:47 AM REVENUE CYCLE MANAGER Inhaled Oxygen Concentration - - Weight 117.5 kg (259 lb) 06/09/2024 2:39 PM CDT Height 170.2 cm (5' 7.01) 06/09/2024 2:39 PM CD T Body Mass Index 40.56 06/09/2024 2:39 PM CDT Plan of Treatment Health Maintenance Due Date Last Done Comments Cervical Cancer Screening 1999 Varicella Vaccines (2 of 2 - 2-dose childhood series) 2003 06/20/2000 Regular Well Visit/Exam 18-64 2017 Covid-19 Vaccine (3 - 2023-2 5 season) 2023 12/07/2020, 11/16/2020 Influenza Vaccine (#1) 2024 Depression Screening 06/09/2025 06/09/2024, 04/07/2024, 04/07/2024, Additional history exists DTaP/Tdap/Td Vaccine (11 - T d or Tdap) 03/11/2034 03/11/2024, 08/21/2022, 05/09/2021, Additional history exists Hepatitis B Screening Completed 06/20/2000 , 1999, 1999 Pneumococcal vaccine <65 Completed 11/01/2000, 06/02 HPV Vaccines Completed 09/29/2010, 0409/2009, 05/21/2008 Hepatitis C Screening Completed 10/04/2023, 023 Procedures Procedure Name Priority Date/Time Associated Diagnosis [...] CDT 10/04/2023 7:17 PM CDT us K[facility] MICROBIOLOGY - GENERAL ORD ERABLES Edited Result - Final [facility] [address] Department [place] [address] from Last 3 Months or Most Recently Relevant to Health Maintenance Insurance [employer] [facility] [employer] Advance Directives For more information, please contact: [phone] * Full Code (Latest Code Status on [...] in case of cardiopulmonary arrest Care Teams Electrophysiologist Relationship Specialty Start Date End Date Unknown, Notinfile PCP - General 04/15/24 Vince Nicole MD [address] [place] [address] Can Coverer Obstetrics and Gynecology 06/30/21 Keri Santana CNM [address] [facility] [address] [place] [address] Software Test Developer Obstetrics and Gynecology 04/22/24
--- OUTSIDE RECORDS SUMMARY | 2024-09-16 12:32 | XMS_ITS | Clinical Summary ---
Author Organization [facility] [employer] Address [address] [place] [address] Care Team Providers Care Finisher Operator Name Role Phone Lola Oglesby MD Primary Care Provider [phone] Ebony Patton DO Unavailable [phone] Source Comments [facility] [employer]non-owned Affiliates and Associated Physician Practices is amultiple site organization consisting of ambulatory clinics and hospital sitesin [place] and [place]. This disclosure is being madepursuant to the Care Everywhere program and may not contain all informatio navailable regarding this patient. Last updated 17.[facility] [employer] Allergies No known active allergies Medications * Be aware that medications may not be up to date on this document. Alwaysverify current medications with the patient. MV-Min-Fe Fum-FA-DHA ( 1 PO) Acti ve Active Problems Problem Noted Date Diagnosed Date Right shoulder pain 11/04/2012 Knee pain 11/06/2011 Closed fracture of part of humerus 08/14/2011 Overview (12/02/2014): Estimated Date of Delivery Comme nts Yes 07/10/2021 Social History Tobacco Use Types Packs/Day Years Used Date Smoking Tobacco: Never Smokeless Tobacco: Never Alcohol Use Standard Drinks/Week Comments No 0 (1 standard drink = 0.6 oz pur e alcohol) PHQ-2 Answer Date Recorded PHQ2 TOTAL SCORE 2 07/22/2020 Estimated Date of Delivery Comme nts Yes 07/10/2021 Sex and Gender Information Value Date Recorded Sex Assigned at Not on file Legal Sex Female 5:41 AM REHABILITATION WORKER Gender Identity Not on file Sexual Orientation Not on file Last Filed Vital Signs Vital Sign Reading Time Taken Comments Blood Pressure 117/68 01/23/2021 6:03 PM REHABILITATION WORKER Pulse 98 01/23/2021 6:03 PM REHABILITATION WORKER Temperature 36.4 C (97.5 F) 01/23/2021 6:03 PM REHABILITATION WORKER Respiratory Rate 18 01/23/2021 6:03 PM REHABILITATION WORKER Oxygen Saturation 99% 01/23/2021 6:03 PM REHABILITATION WORKER Inhaled Oxygen Concentration 100% 08/08/2011 1 :35 AM CDT Weight 122 kg (269 lb) 07/22/2020 2:08 PM CDT Height 170.2 cm (5' 7) 04/26/2020 5:17 PM REHABILITATION WORKER Body Mass Index 42.13 04/26/2020 5:17 PM REHABILITATION WORKER Plan of Treatment Health Maintenance Due Date Last Done Comments HPV VACCINE (1 - 3-dose series) 2014 HEPATITIS C SCREENING 02/23/2017 DTAP/TDAP/TD VACCINES (1 - Tdap) 2018 HEPATITIS B VACCINE (1 of 3 - 19+ 3-dose series) 2018 OB-ONE HOUR GLUCOSE 04/03/2021 OB-TDAP CURRENT 04/10/2021 OB-RHOGAM INJECTION 04/17/2021 OB-GROUP B STREP SCREEN 06/05/2021 CHLAMYDIA/GONORRHEA SCREENING 11/29/2021 11/29/2020 COVID-19 VACCINE (3 - 2023-2 5 season) 2023 12/07/2020, 11/16/2020 DEPRESSION SCREENING 03/04/2024 INFLUENZA VACCINE (#1) 2024 ZOSTER VACCINE (1 of 2) 2049 Respiratory Syncytial Virus (RSV) Vaccine Pt: or over 60 yrs (1 - 1-dose 75+ series) 2074 HIV SCREENING Completed 11/29/2020 HIB VACCINE Aged Out No longer eligi ble based on patient's age to complete this topic MENINGOCOCCAL (Group B) VACCINE SHARED DECISION-MAKING Aged Out No longer eligible based on patient's age to complete this topic MENINGOCOCCAL GROUPS A/C/Y/W VACCINE Aged Out No longer eligible b ased on patient's age to complete this topic PNEUMOCOCCAL VACCINE Aged Out No long er eligible based on patient's age to complete this topic Insurance ANTHEM Care Teams Finisher Operator Relationship Specialty Start Date End Date Lola Oglesby MD [address] [phone] PCP - General Family Medicine 04/25/19 Ebony Patton DO [address] [phone] 04/25/19
--- OUTSIDE RECORDS SUMMARY | 2024-09-16 12:32 | XMS_ITS | Data Portability ---
Author Organization [facility] Address [address] [place] [address] Care Team Providers Care Chronometer Tester Name Role Phone DARIUSZ LOPEZ Primary Care Provider [phone] Assessment No assessment recorded. Plan of Treatment Reminders Order Date Submit Date Provider Last Modified By Organization Details Last Modified Time Details Appointments None recorded. Lab CMP, serum or plasma 2021 022 [facility] (Lab), [address] [place], [address], 2 05:09:41 CBC w/ auto diff 2021 022 [facility] (Lab), [address] [place], [address], 2 05:09:40 uric acid, serum or plasma 2021 022 [facility] (Lab), [address] [place], [address], 2 05:09:41 protein:cre atinine ratio, urine 2021 022 [facility] (Lab), [address] [place], [address], 2 05:09:42 TSH, serum or plasma 2021 022 [facility] (Lab), [address] [place], [address], 05:09:41 Referral None recorded. Procedures None recorded. Surgeries None recorded. Imaging US, obstetric, 2nd or 3rd trimester 2020 [address], [address], [place], [address], 10:50:41 US, obstetric, transvagina l 2020 [address], [address], [place], [address], 10:51:10 Medication Orders None recorded. Patient TargetsNo targets recorded. Patient InstructionsNo instructions recorded. Reason for Referral None Reported. Results Created Date Observation Date Name Description Value Unit Range Abnormal Flag Note LastModifiedBy Organization Detail LastModifiedTime 01/31/2001/30/2021 TSH, REFLE X FREE T4 TSH 1.32 uIU/m L 0.30-5 .33 Not Available [facility] (Lab) [address], [place], [address], 02/01/2021 17:12:35 01/31/20 21 01/30/2021 AFP, MATER NAL SCREE N interpretati on Scree n negat yvrose for open NTD. Not Available [facility] (Lab) [address], [place], [address], 02/01/2021 17:12:35 01/31/20 21 01/30/2021 AFP, MATER NAL SCREE N msafp risk open ntd <1 IN 5000 Not Available [facility] (Lab) [address], [place], [address], 02/01/2021 17:12:35 01/31/20 21 01/30/2021 AFP, MATER NAL SCREE N AFP, serum 19.5 NG/mL Not Available [facility] (Lab) [address], [place], [address], 02/01/2021 17:12:35 01/31/20 21 01/30/2021 AFP, MATER NAL SCREE N AFP MOM 0.71 Not Available [facility] (Lab) [address], [place], [address], 02/01/2021 17:12:35 01/31/20 21 01/30/2021 AFP, MATER NAL SCREE N comment This patie nt's TRINA (rachelle mated date of deliv lesly) was used to calcu late the gesta mayur l age. Perfo rmanc e of mater nal AFP provi harvinder a usefu l scree ginger test for detec tion of open neura l tube defec ts. The singl e AFP marke r is not recom tyra d for Down syndr ome and other chrom osoma l abnor malit ies scree ginger. Much great er sensi tivit y is achie ruth with multi ple marke rs, such as AFP, hCG, uncon jugat ed estri ol, and/o r dimer ic inhib in A, as recom tyra d by the [facility] . It shoul d be noted that jorge l test resul ts can never guara ntee the of a jorge l baby and that 2-3% of [facility] r[facility] have some type of physi homer or menta l defec t, many of which are undet ectab le throu gh any known prena yahir diagn ostic techn ique. Not Available [facility] (Lab) [address], [place], [address], 02/01/2021 17:12:35 01/31/20 21 01/30/2021 AFP, MATER NAL SCREE N note This is a scree ginger test, not a diagn ostic test. This risk asses sment repor t is based in part on demog raphi c data provi ded by the order ing physi amarjit. Pleas e notif y the labor atory promp tly if any data are incor rect. For artie tance with recal culat ions, pleas e call your local [facility] . For artie tance with inter preta tion of these resul ts, pleas e conta ct your Local [facility] sarah ic couns elor or call [phone]( [phone]). Inter preti ve Cutof fs Scree n Posit yvrose for Open NTD: > or = 2.50 adjus gurinder MOM > or = 1.90 adjus gurinder MOM for Insul in-de pende nt diabe tics > or = 4.00 adjus gurinder MOM for twins > or = 3.50 adjus gurinder MOM for Twins insul in-de pende nt diabe tics > or = 4.50 adjus gurinder MOM for tripl ets Not Available [facility] (Lab) [address], [place], [address], 02/01/2021 17:12:35 01/31/20 21 01/30/2021 AFP, MATER NAL SCREE N gestational age 17.0 weeks Not Available [facility] (Lab) [address], [place], [address], 02/01/2021 17:12:35 01/31/20 21 01/30/2021 AFP, MATER NAL SCREE N weight quad 263 lbs Not Available [facility] (Lab) [address], [place], [address], 02/01/2021 17:12:35 01/31/20 21 01/30/2021 AFP, MATER NAL SCREE N patient's trina 2021 Not Available [facility] (Lab) [address], [place], [address], 02/01/2021 17:12:35 01/31/20 21 01/30/2021 AFP, MATER NAL SCREE N trina determined by LMP Not Available [facility] (Lab) [address], [place], [address], 02/01/2021 17:12:35 01/31/20 21 01/30/2021 AFP, MATER NAL SCREE N ethnic origin CAUCAS GERALD Not Available [facility] (Lab) [address], [place], [address], 02/01/2021 17:12:35 01/31/20 21 01/30/2021 AFP, MATER NAL SCREE N number of fetus(es)? 1 Not Available [facility] (Lab) [address], [place], [address], 02/01/2021 17:12:35 01/31/20 21 01/30/2021 AFP, MATER NAL SCREE N insulin dependent? NO Not Available [facility] (Lab) [address], [place], [address], 02/01/2021 17:12:35 01/31/20 21 01/30/2021 AFP, MATER NAL SCREE N repeat specimen NO Not Available [facility] (Lab) [address], [place], [address], 02/01/2021 17:12:35 01/31/20 21 01/30/2021 AFP, MATER NAL SCREE N hist neural tube defect NO Not Available [facility] (Lab) [address], [place], [address], 02/01/2021 17:12:35 01/31/20 21 01/30/2021 AFP, MATER NAL SCREE N history of down synd? NO Not Available [facility] (Lab) [address] [place], [address], 02/01/2021 17:12:35 01/31/20 21 01/30/2021 AFP, MATER NAL SCREE N donor egg NO Not Available [facility] (Lab) [address], [place], [address], 02/01/2021 17:12:35 01/31/20 21 01/30/2021 AFP, MATER NAL SCREE N donor age at egg retrieval NOT GIVEN TRINA: 07/10 TRINA Deter mined by: LMP Race: White Diabe dana?: N Fetus numbe r: 1 Chron icity : First time pregn ant, Secon d time pregn ant: Secon d time Gesta mayur l Age: 17w0d LMP: 10/03 Nucha l Trans lucen cy: 1.8mm [place] -Rump Lengt h: 7.71c m Ultra sound Date: 01/03 Histo ry of Neura l tube defec t or Down Syndr ome?: N IVF pregn radha? : N Perfo rming Organ izati on Infor matio n: Site ID: [id number] Name: [facility] Addre ss: [address] [place] [address] Dire tor: Dequan gonsales M.D. Not Available [facility] (Lab) [address], [place], [address], 02/01/2021 17:12:35 01/31/20 21 01/30/2021 drug scree n, urine Amphetamines : negati ve Not Available [facility] [address], [place], [address], 01/30/2021 10:58:31 01/31/20 21 01/30/2021 drug scree n, urine Cannabinoids : negati ve Not Available [facility] [address], [place], [address], 01/30/2021 10:58:31 01/31/20 21 01/30/2021 drug scree n, urine Opiates: negati ve Not Available [facility] [address], [place], [address], 01/30/2021 10:58:31 01/31/20 21 01/30/2021 drug scree n, urine Benzodiazepi armen: negati ve Not Available [facility] [address], [place], [address], 01/30/2021 10:58:31 04/04/19 22 04/04/2021 CBC W/DIF F WBC 8.2 10'3/ uL 3.6-10 .2 Not Available [facility] (Lab) [address], [place], [address], 04/05/2021 05:09:35 04/04/19 22 04/04/2021 CBC W/DIF F RBC 3.90 10'6/ uL (based on docume nted legal sex) 4.10-5 .30 low Not Available [facility] (Lab) [address], [place], [address], 04/05/2021 05:09:35 04/04/19 22 04/04/2021 CBC W/DIF F HGB 11.3 g/dL (based on docume nted legal sex) 11.9-1 5.8 low Not Available [facility] (Lab) [address], [place], [address], 04/05/2021 05:09:35 04/04/19 22 04/04/2021 CBC W/DIF F HCT 35.6 % (based on docume nted legal sex) 37.4-4 8.3 low Not Available [facility] (Lab) [address], [place], [address], 04/05/2021 05:09:35 04/04/19 22 04/04/2021 CBC W/DIF F MCV 92.0 fL 82.0-9 9.0 Not Available [facility] (Lab) [address], [place], [address], 04/05/2021 05:09:35 04/04/19 22 04/04/2021 CBC W/DIF F MCH 29.0 pg 27.0-3 3.0 Not Available [facility] (Lab) [address], [place], [address], 04/05/2021 05:09:35 04/04/19 22 04/04/2021 CBC W/DIF F MCHC 32.0 g/dL 32.0-3 6.0 Not Available [facility] (Lab) [address] [facility], [place], [address], 04/05/2021 05:09:35 04/04/19 22 04/04/2021 CBC W/DIF F RDW 14.0 % 11.0-1 5.0 Not Available [facility] (Lab) [address] [facility], [place], [address], 04/05/2021 05:09:35 04/04/19 22 04/04/2021 CBC W/DIF F plt 250 10'3/ uL 150-45 0 Not Available [facility] (Lab) [address] [facility], [place], [address], 04/05/2021 05:09:35 04/04/19 22 04/04/2021 CBC W/DIF F MPV 10.7 fL 9.8-12 .7 Not Available [facility] (Lab) [address] [facility], [place], [address], 04/05/2021 05:09:35 04/04/19 22 04/04/2021 CBC W/DIF F NRBC's 0.00 % 0 Not Available [facility] (Lab) [address] [facility], [place], [address], 04/05/2021 05:09:35 04/04/19 22 04/04/2021 CBC W/DIF F absolute NRBCs 0.0 10'3/ uL 0 Not Available [facility] (Lab) [address] [facility], [place], [address], 04/05/2021 05:09:35 04/04/19 22 04/04/2021 CBC W/DIF F neutrophils 75.0 % 37.0-7 2.0 high Not Available [facility] (Lab) [address] [place], [address], 04/05/2021 05:09:35 04/04/19 22 04/04/2021 CBC W/DIF F lymphocytes 16.0 % 16.0-4 8.0 Not Available [facility] (Lab) [address] [facility], [place], [address], 04/05/2021 05:09:35 04/04/19 22 04/04/2021 CBC W/DIF F monocytes 7.0 % 4.0-14 .0 Not Available [facility] (Lab) [address] [facility], [place], [address], 04/05/2021 05:09:35 04/04/19 22 04/04/2021 CBC W/DIF F eosinophils 1.0 % 0.0-9. 0 Not Available [facility] (Lab) [address] [facility], [place], [address], 04/05/2021 05:09:35 04/04/19 22 04/04/2021 CBC W/DIF F basophils 0.0 % 0.0-2. 0 Not Available [facility] (Lab) [address] [facility], [place], [address], 04/05/2021 05:09:35 04/04/19 22 04/04/2021 CBC W/DIF F immature granulocytes 1.0 % no define d refere nce range Not Available [facility] (Lab) [address] [facility], [place], [address], 04/05/2021 05:09:35 04/04/19 22 04/04/2021 CBC W/DIF F absolute neutrophils 6.2 10'3/ uL 1.1-6. 0 high Not Available [facility] (Lab) [address] [facility], [place], [address], 04/05/2021 05:09:35 04/04/19 22 04/04/2021 CBC W/DIF F absolute lymphocytes 1.3 10'3/ uL 0.7-3. 4 Not Available [facility] (Lab) [address] [place], [address], 04/05/2021 05:09:35 04/04/19 22 04/04/2021 CBC W/DIF F absolute monocytes 0.6 10'3/ uL 0.3-1. 0 Not Available [facility] (Lab) [address] [facility], [place], [address], 04/05/2021 05:09:35 04/04/19 22 04/04/2021 CBC W/DIF F absolute eosinophils 0.1 10'3/ uL 0.0-0. 6 Not Available [facility] (Lab) [address], [place], [address], 04/05/2021 05:09:35 04/04/19 22 04/04/2021 CBC W/DIF F absolute basophils 0.0 10'3/ uL 0.0-0. 1 Not Available [facility] (Lab) [address] [facility], [place], [address], 04/05/2021 05:09:35 04/04/19 22 04/04/2021 CBC W/DIF F absolute immature granulocytes 0.10 10'3/ uL 0.00-0 .10 022 2:45 AM: P indic ates parti al resul ts on a panel have been relea sed. Addit ional resul ts will follo w. 022 2:45 AM: This resul t has been final verif ied. No addit ional or bolden ed resul ts are expec gurinder. Not Available [facility] (Lab) [address], [place], [address], 04/05/2021 05:09:35 04/04/19 22 04/04/2021 TSH, REFLE X FREE T4 TSH 1.86 uIU/m L 0.30-5 .33 Not Available [facility] (Lab) [address] [facility], [place], [address], 04/05/2021 05:09:41 04/04/19 22 04/04/2021 URIC ACID uric acid 2.0 mg/dL 2.3-6. 6 low Not Available [facility] (Lab) [address] [facility], [place], [address], 04/05/2021 05:09:41 04/04/19 22 04/04/2021 CMP(C OMPRE HENSI VE METAB OLIC PANEL ) sodium 139 mmol/ L 133-14 6 Not Available [facility] (Lab) [address] [facility], [place], [address], 04/05/2021 05:09:41 04/04/19 22 04/04/2021 CMP(C OMPRE HENSI VE METAB OLIC PANEL ) potassium 4.0 mmol/ L 3.5-5. 1 Not Available [facility] (Lab) [address] [facility], [place], [address], 04/05/2021 05:09:41 04/04/19 22 04/04/2021 CMP(C OMPRE HENSI VE METAB OLIC PANEL ) chloride 106 mmol/ L 98-107 Not Available [facility] (Lab) [address] [facility], [place], [address], 04/05/2021 05:09:41 04/04/19 22 04/04/2021 CMP(C OMPRE HENSI VE METAB OLIC PANEL ) carbon dioxide 22 mmol/ L 21-31 Not Available [facility] (Lab) [address] [facility], [place], [address], 04/05/2021 05:09:41 04/04/19 22 04/04/2021 CMP(C OMPRE HENSI VE METAB OLIC PANEL ) anion gap 11 mmol/ L 4-13 Not Available [facility] (Lab) [address] [facility], [place], [address], 04/05/2021 05:09:41 04/04/19 22 04/04/2021 CMP(C OMPRE HENSI VE METAB OLIC PANEL ) blood urea nitrogen 7 mg/dL 7-25 Not Available [facility] (Lab) [address] [place], [address], 04/05/2021 05:09:41 04/04/19 22 04/04/2021 CMP(C OMPRE HENSI VE METAB OLIC PANEL ) creatinine 0.61 mg/dL 0.60-1 .30 Not Available [facility] (Lab) [address], [place], [address], 04/05/2021 05:09:41 04/04/19 22 04/04/2021 CMP(C OMPRE HENSI VE METAB OLIC PANEL ) egfrcr (CKD-epi 2020) >90 mL/mi n/1.7 3_m2 >=60 Not Available [facility] (Lab) [address], [place], [address], 04/05/2021 05:09:41 04/04/19 22 04/04/2021 CMP(C OMPRE HENSI VE METAB OLIC PANEL ) calcium 9.1 mg/dL 8.3-10 .5 Not Available [facility] (Lab) [address], [place], [address], 04/05/2021 05:09:41 04/04/19 22 04/04/2021 CMP(C OMPRE HENSI VE METAB OLIC PANEL ) glucose 88 mg/dL 70-100 Not Available [facility] (Lab) [address], [place], [address], 04/05/2021 05:09:41 04/04/19 22 04/04/2021 CMP(C OMPRE HENSI VE METAB OLIC PANEL ) protein, total 6.4 g/dL 6.4-8. 3 Not Available [facility] (Lab) [address], [place], [address], 04/05/2021 05:09:41 04/04/19 22 04/04/2021 CMP(C OMPRE HENSI VE METAB OLIC PANEL ) albumin 3.7 g/dL 3.5-5. 0 Not Available [facility] (Lab) [address], [place], [address], 04/05/2021 05:09:41 04/04/19 22 04/04/2021 CMP(C OMPRE HENSI VE METAB OLIC PANEL ) ALT 12 units /L 9-43 Not Available [facility] (Lab) [address] [facility], [place], [address], 04/05/2021 05:09:41 04/04/19 22 04/04/2021 CMP(C OMPRE HENSI VE METAB OLIC PANEL ) alkaline phosphatase 61 units /L 34-104 Not Available [facility] (Lab) [address] [facility], [place], [address], 04/05/2021 05:09:41 04/04/19 22 04/04/2021 CMP(C OMPRE HENSI VE METAB OLIC PANEL ) AST 11 units /L 13-39 low Not Available [facility] (Lab) [address] [facility], [place], [address], 04/05/2021 05:09:41 04/04/19 22 04/04/2021 CMP(C OMPRE HENSI VE METAB OLIC PANEL ) bilirubin, total 0.2 mg/dL 0.2-1. 2 Not Available [facility] (Lab) [address] [facility], [place], [address], 04/05/2021 05:09:41 04/04/19 22 04/04/2021 PROTE IN/CR EATIN INE RATIO , URINE creatinine, urine 69.3 mg/dL R-No refer ence range estab lishe d for this assay Not Available [facility] (Lab) [address] [facility], [place], [address], 04/05/2021 05:09:42 04/04/19 22 04/04/2021 PROTE IN/CR EATIN INE RATIO , URINE protein, urine 12 mg/dL R-No refer ence range estab lishe d for this assay Not Available [facility] (Lab) [address] [facility], [place], [address], 04/05/2021 05:09:42 04/04/19 22 04/04/2021 PROTE IN/CR EATIN INE RATIO , URINE protein/crea tinine ratio, urine 0.17 . No Refer ence Range avail able for Rando m Urine s. A prote in to creat inine ratio of >=0.1 9 is a good predi ctor of signi fican t prote inuri a. A level of <0.14 can rule out signi fican t prote inuri a. Not Available [facility] (Lab) [address] [place], [address], 04/05/2021 05:09:42 04/12/19 22 04/12/2021 PROTE IN, 24 HOUR URINE hours collected 24.00 h Not Available [facility] (Lab) [address] [place], [address], 04/13/2021 03:57:14 04/12/19 22 04/12/2021 PROTE IN, 24 HOUR URINE total volume 2000 mL Not Available [facility] (Lab) [address] [place], [address], 04/13/2021 03:57:14 04/12/19 22 04/12/2021 PROTE IN, 24 HOUR URINE protein, urine 9 mg/dL R-No refer ence range estab lishe d for this assay Not Available [facility] (Lab) [address] [place], [address], 04/13/2021 03:57:14 04/12/19 22 04/12/2021 PROTE IN, 24 HOUR URINE protein, 24H urine 180 mg/24 h 10-150 high Not Available [facility] (Lab) [address] [place], [address], 04/13/2021 03:57:14 04/21/19 22 04/21/2021 HEMAT OCRIT (HCT) HCT 32.7 % (based on docume nted legal sex) 37.4-4 8.3 low Not Available [facility] (Lab) [address] [place], [address], 04/22/2021 05:31:55 04/21/19 22 04/21/2021 HEMOG LOBIN (HGB) HGB 10.6 g/dL (based on docume nted legal sex) 11.9-1 5.8 low Not Available [facility] (Lab) [address] [facility], [place], [address], 04/22/2021 05:31:55 04/21/19 22 04/21/2021 TSH, REFLE X FREE T4 TSH 1.26 uIU/m L 0.30-5 .33 Not Available [facility] (Lab) [address] [place], [address], 04/22/2021 05:31:56 04/21/19 22 04/21/2021 GTT - GESTA MAYUR L THOM Streeter, ACOG OB glucose, 1 hour screen 133 mg/dL 70-139 Not Available [facility] (Lab) [address] [place], [address], 04/22/2021 05:31:56 04/21/19 22 04/21/2021 HIV 1/2 ANTIG EN/AN TIBOD Y, REFLE X CONFI RMATI ON HIV Ag-Ab total quant 0.06 idx <1.00 Not Available [facility] (Lab) [address] [place], [address], 04/22/2021 05:31:56 04/21/19 22 04/21/2021 HIV 1/2 ANTIG EN/AN TIBOD Y, REFLE X CONFI RMATI ON HIV Ag-Ab total Non-re active non-re active Not Available [facility] (Lab) [address] [place], [address], 04/22/2021 05:31:56 04/21/19 22 04/21/2021 HIV 1/2 ANTIG EN/AN TIBOD Y, REFLE X CONFI RMATI ON HIV-1 antibody quant 0.02 idx <1.00 Not Available [facility] (Lab) [address] [place], [address], 04/22/2021 05:31:56 04/21/19 22 04/21/2021 HIV 1/2 ANTIG EN/AN TIBOD Y, REFLE X CONFI RMATI ON HIV-1 antibody Non-re active non-re active Not Available [facility] (Lab) [address] [place], [address], 04/22/2021 05:31:56 04/21/19 22 04/21/2021 HIV 1/2 ANTIG EN/AN TIBOD Y, REFLE X CONFI RMATI ON HIV-1 antigen (P24) quant 0.06 idx <1.00 Not Available [facility] (Lab) [address] [facility], [place], [address], 04/22/2021 05:31:56 04/21/19 22 04/21/2021 HIV 1/2 ANTIG EN/AN TIBOD Y, REFLE X CONFI RMATI ON HIV-1 antigen (P24) Non-re active non-re active Not Available [facility] (Lab) [address] [place], [address], 04/22/2021 05:31:56 04/21/19 22 04/21/2021 HIV 1/2 ANTIG EN/AN TIBOD Y, REFLE X CONFI RMATI ON HIV-2 antibody quant 0.01 idx <1.00 Not Available [facility] (Lab) [address] [place], [address], 04/22/2021 05:31:56 04/21/19 22 04/21/2021 HIV 1/2 ANTIG EN/AN TIBOD Y, REFLE X CONFI RMATI ON HIV-2 antibody Non-re active non-re active HIV testi ng is perfo rmed using Multi plex- Bead Immun oassa y techn ology . The final overa ll HIV Ag-Ab resul t is deter mined based on the final resul t for each indiv idual aaron te. If any of the aaron dana has 2 or more repli cates that are REACT YVROSE, the final overa ll HIV Ag-Ab resul t is also React yvrose. A Non-R eacti ve test resul t at any point in the inves tigat ion of indiv idual subje cts does not precl ude the possi bilit y of expos ure to or infec tion with HIV-1 and/o r HIV-2 . Non-R eacti ve resul ts can occur if the quant ity of marke r prese nt in the sampl e is below the detec tion limit s of the assay . React yvrose speci mens must be inves tigat ed by addit ional , more speci fic suppl ement al tests . Speci men confi rmati on will be perfo rmed by the [employer] HIV 1/2 Suppl ement al Assay . The perfo rmanc e of this assay has not been estab lishe d for neona dana and the assay shoul d not be used in indiv idual s young er than 2 years of age. Not Available [facility] (Lab) [address], [place], [address], 04/22/2021 05:31:56 04/27/19 22 04/27/2021 GTT - GESTA MAYUR L, 3 HOUR, ACOG glucose, fasting acog 76 mg/dL 70-91 Fasti ng: Y Not Available [facility] (Lab) [address] [place], [address], 04/28/2021 06:12:31 04/27/19 22 04/27/2021 GTT - GESTA MAYUR L, 3 HOUR, ACOG glucose, 1 hour acog 154 mg/dL 70-179 Fasti ng: Y Not Available [facility] (Lab) [address] [place], [address], 04/28/2021 06:12:31 04/27/19 22 04/27/2021 GTT - GESTA MAYUR L, 3 HOUR, ACOG glucose, 2 hour acog 119 mg/dL 70-154 Fasti ng: Y Not Available [facility] (Lab) [address] [facility], [place], [address], 04/28/2021 06:12:31 04/27/19 22 04/27/2021 GTT - GESTA MAYUR L, 3 HOUR, ACOG glucose, 3 hour acog 91 mg/dL 70-139 Fasti ng: Y Not Available [facility] (Lab) [address] [facility], [place], [address], 04/28/2021 06:12:31 03/01/20 21 03/01/2021 US, obste tric, 2nd or 3rd trime ster No observ ation record ed. [facility] [address] [address], [place], [address], 03/01/2021 19:07:12 03/01/20 21 03/01/2021 US, obste tric, trans vagin al No observ ation record ed. [address], [place], [address], 03/01/2021 19:07:22 03/01/20 21 03/01/2021 US, obste tric, 2nd or 3rd trime ster No observ ation record ed. [facility] [address], [place], [address], 03/01/2021 14:36:49 03/01/20 21 03/01/2021 US, obste tric, 2nd or 3rd trime ster No observ ation record ed. [facility] [address], [place], [address], 03/01/2021 14:36:50 Result Notes None recorded. Problems Name Problem SNOMED Code Status Onset Date Resolution Date Notes Provider Name and Address Organization Details Recorded Time Mixed anxiety and depressi ve disorder 725554810 Active 2020 stable. DO NOT ASK PT ABOUT THIS UNTIL PP VISIT. SHE WILL BRING IT UP IF IT IS AN ISSUE. Nubia chowdhury [place] - [facility] 2 23:12:08 Hashimot o thyroidi tis 77306918 Active 2020 no meds since age 18. TSH 1.32 on 01/30. Repeat TSH with 28w labs Nubia chowdhury, [facility] 2 23:12:08 Body mass index 40+ - severely obese 006941305 Active 2020 Christina Cooper MD [address], [place], [address], [facility] 1 11:45:04 RhD negative 163925130 Completed 202005/05/2021 Christina Cooper MD [address], [place], [address], [facility] 2 10:31:08 Pregnanc y 18021644 Completed 202005/24/2021 Nubia chowdhury, [facility] 2 23:12:12 Hashimot o thyroidi tis 24506094 Completed 2020 no meds since age 18. TSH 1.32 on 01/30. Repeat TSH with 28w labs Nubia De La Garzaabundio chowdhury [facility] 2 23:12:08 Maternal obesity complica ting pregnanc y, childbir th and the puerperi um, antepart um [id number] 07 Completed BMI 40+- ante testing 34w Nubia chowdhury [facility] 2 23:12:08 Mixed anxiety and depressi ve disorder 367564203 Completed 2020 stable. DO NOT ASK PT ABOUT THIS UNTIL PP VISIT. SHE WILL BRING IT UP IF IT IS AN ISSUE. Nubia chowdhury [facility] 2 23:12:07 Anemia 290668461 Completed 2021 slow 1 tab daily Nubia chowdhury [facility] 2 23:12:08 Glucose level outside referenc e range 403595929 Completed Failed 1 hr GTT, passed 3 hr GTT Nubia chowdhury [facility] 2 23:12:08 Pregnanc y test negative 823292842 Completed 201806/21/2020 Encounte r for pregnanc y test, result negative ;Recorde d Elsewher e: No Locat ion: [facility] S ource: EHR Chin Strap Cutter liz: N Scott ce ID: 0001 Ariel lable Time: 10:15:00 AM Suma chowdhury [facility] 17:34:[address] Concept Completed 201806/21/2020 Encounte r for surveill ance of other contrace ptives;R ecorded Elsewher e: No Locat ion: [facility] S ource: EHR Chin Strap Cutter liz: N Scott ce ID: 0001 Ariel lable Time: 10:15:00 AM Suma chowdhury [facility] 17:34:[address] Concept Completed 201806/21/2020 Anxiety; Recorded Elsewher e: No Locat ion: [facility] S ource: EHR Chin Strap Cutter liz: N Zackaryti ce ID: 0001 Ariel lable Time: 04:00:00 PM Suma chowdhury [facility] 17:34:19 Autoimmu ne thyroidi tis 38783657 Completed 201806/21/2020 Hashimot o's thyroidi tis;Krunal rded Elsewher e: No Locat ion: [facility] S ource: EHR Chin Strap Cutter liz: N Zackaryti ce ID: 0001 Ariel lable Time: 04:00:00 PM [facility] 17:34:13 Contrace ptive sheath status [id number] Completed 201806/21/2020 Encounte r for initial prescrip tion of other contrace ptives;R ecorded Elsewher e: No Locat ion: [facility] S ource: EHR Chin Strap Cutter liz: N Practi ce ID: 0001 Ariel lable Time: 10:15:00 AM Suma chowdhury, [facility] 17:34:14 Educatio n Completed 201806/21/2020 Encounte r for other general counseli ng on contrace ption;Re corded Elsewher e: No Locat ion: [facility] S ource: EHR Chin Strap Cutter liz: N Practi ce ID: 0001 Ariel lable Time: 04:00:00 PM Suma chowdhury [facility] 17:34:16 Problem Notes None recorded. Procedures Surgical History Date Name Laterality Status Provider Name and Address Organization Details Recorded Time 03/11/19 21 Control Implant Removal completed Suzi Kraus, ELIAN- [address], [place], [address], [facility] 03/11/2020 16:38:04 Tonsillectomy completed [facility] 06/21/2020 17:47:16 extraction of wisdom tooth completed [facility] 06/21/2020 17:47:26 Imaging Results None recorded. Procedure Notes None recorded. Medical Equipment None Reported. Allergies No known drug allergies Medications Name Sig Start Date Stop Date Status Note LastModified by Organization Details LastModified Time Aviane 0.1 mg-20 mcg tablet 11/29 completed Not Available Not Available Not Available benzonata te 200 mg capsule 03/11 completed Not Available Not Available Not Available sertralin e 100 mg tablet 11/29 completed Not Available Not Available Not Available omeprazol e 10 mg capsule,d elayed release take 2 capsule by oral route every day before a meal 03/11 completed Prescrib ed Elsewher e: Yes Loca tion: [facility] odify By: zofia howard DateTime : 11/27/19 04:00:00 PM Not Available Not Available Not Available ondansetr on 4 mg disintegr ating tablet DISSOLVE 1 TABLET ON THE TONGUE THREE TIMES DAILY NEEDED active Not Available Not Available No t Available amoxicill in 875 mg-potass ium clavulana te 125 mg tablet 03/11 completed Not Available Not Available Not Available iron 325 mg (65 mg iron) tablet take 1 tablet by oral route every day 03/11 completed Prescrib ed Elsewher e: Yes Loca tion: [facility] odify By: zofia howard DateTime : 11/27/19 04:00:00 PM Not Available Not Available Not Available omeprazol e 11/29 completed Not Available Not Available Not Available active Not Available Not Avai lable Not Available levonorge strel 1.5 mg tablet 03/11 completed Not Available Not Available Not Available Tirosint 13 mcg capsule take 1 capsule by oral route every day 06/21 completed Prescrib ed Elsewher e: Yes Loca tion: [facility] odify By: zofia howard DateTime : 11/27/19 19 04:00:00 PM Not Available Not Available Not Available Nexplanon 68 mg subdermal implant 03/11 completed Prescrib ed Elsewher e: Yes Loca tion: [facility] odify By: zofia howard DateTime : 12/11/19 10:15:00 AM Not Available Not Available Not Available Vitals Date Recorded Body height Body mass index (BMI) Body weight Systolic And Diastolic Systolic And Diastolic Provider Name and Address Organization Details Last Updated DateTime 04/04/2021 170.18 cm 42.4 kg/m2 376223.5 3227 g 147/89 mm[Hg] 140/90 mm[Hg] Evon Franco [facility] 14:19:45 Date Recorded Body height Body mass index (BMI) Body weight Systolic And Diastolic Provider Name and Address Organization Details Last Updated DateTime 04/21/2021 170.18 cm 42.6 kg/m2 389485.12 464 g 136/81 mm[Hg] [facility] 04/21/2021 10:22:19 Date Recorded Body height Body mass index (BMI) Body weight Systolic And Diastolic Provider Name and Address Organization Details Last Updated DateTime 05/05/2021 170.18 cm 42.9 kg/m2 993274.30 938 g 140/82 mm[Hg] [facility] 05/05/2021 10:12:51 Date Recorded Body height Body mass index (BMI) Body weight Systolic And Diastolic Provider Name and Address Organization Details Last Updated DateTime 03/01/2021 170.18 cm 41.2 kg/m2 729995.79 331 g 139/82 mm[Hg] [facility] 03/01/2021 10:38:38 Social History Question Answer Notes LastModified by Organizat ion Details LastModified Time Tobacco Smoking Status Never [facility] 10:09:35 Are You Blind Or Do You Have Difficulty Seeing? No [email or web address] Information n ot available 06/21/2020 In The 14 Days Before Symptom Onset, Have You Had Close Contact With A Laboratory-confirm ed COVID-19 While That Case Was Ill? No Information n ot available 06/21/2020 In The 14 Days Before Symptom Onset, Have You Had Close Contact With A Person Who Is Under Investigation For COVID-19 While That Person Was Ill? No [email or web address] Information not available 06/21/2020 Have You Been To An Area Known To Be High Risk For COVID-19? No [email or web address] Information not available 06/21/2020 Are You Deaf Or Do You Have Serious Difficulty Hearing? No [email or web address] Information not available 06/21/2020 What Type Of Diet Are You Following? REGULAR Information n ot available 06/21/2020 Do You Use Your Seat Belt Or Car Seat Routinely? Yes [email or web address] Information not available 06/21/2020 Sex: Unknown Functional Status Question Answer Note LastModified by Organizat ion Details LastModified Time Are you able to walk? [email or web address] Information not available 06/21/2020 What is your exercise level? Occasional [email or web address] Information not available 06/21/2020 Mental Status None recorded. Family History Relationship Description Onset Age of this Age Resolved Age Notes LastModified by Organization Details LastModified Time Maternal Aunt Disorder of thyroid gland [email or web address] Not available 2020 17:40:31 Maternal Grandmother Disorder of thyroid gland [email or web address] Not available 2020 17:40:38 Mother Disorder of thyroid gland [email or web address] Not available 2020 17:40:45 Mother Asthma [email or web address] Not available 0 06/21/2020 17:40:51 Paternal Grandfather Heart disease [email or web address] Not available 2020 17:41:11 Paternal Grandfather Diabetes mellitus [email or web address] Not available 2020 17:41:19 Medical History Condition Response Anxiety Disorder Y Thyroid Problems Y Anemia Y Depression/ depression Y Gynecological History Statement/Question Response Date of Last Pap Smear Current Control Method None Flow Light Date of LMP 06/22/2020 LMP Approximate Obstetrics History GPAL:G 2 P 0 0 1 0 Type Value Spontaneous 1 Total 2 Past Encounters Encounter ID Performer Location Encounter Start Date Encounter Closed Date Diagnosis/Indication Diagnosis SNOMED-CT Code Diagnosis ICD10 Code Diagnosis Note [id number] [facility] [address] [address] 03/11/2020 16:02:39 03/11/2020 16:50:50 Removal of subcutaneous contraceptive 029058603 Z30.46 Removal site was cleansed with betadine wax2ikeo lidocaine used for anesthesia . Device was removed in normal fashion without difficulty . Steristips and pressure bandage placed. [place] [id number] [facility] [address] [address] 06/22/2020 15:26:09 06/23/2020 15:16:39 Deficient knowledge of preconception health practices 862508124 Z76.89 Today we are discussing at length, indepth the menstrual and ovulatory processes of the body. Educated thoroughly using verbal & non-verbal methods. We disccused concepts of preconcept ion and defined 'actively trying' for meant. I have directed her to the [facility] link for additional home review: https://ww w.cdc.gov/ preconcept ion/planni ng.html She would like to purchse PNV OTC. We reviewed what to look for in a PNV today (i.e. folic acid 400mcg, iron, DHA). She is to contact our office if any further questions. She is appreciati ve and feeling more calm after today's visit. Time spent in visit is a total of 26 mins with at least 50% of visit consisting of counseling and review of plan of care. Additional precaution kaya measures were taken to minimize potential exposure to the Covid-19 virus during this patient s visit, including available hand clinical tech upon arrive, temperatur e check and being asked a series of screening questions. All staff wore face coverings during this encounter, as well as provided additional cleaning and sanitizing of all surfaces, including countertop s, pens, chairs, door handles, light switches, etc, prior to and following the patient s visit. [id number] MD Rafy Colvin [address],[email or web address] [place] [address] 11/29/2020 10:21:00 11/29/2020 11:21:40 [id number] MD Rafy Colvin [address],[facility] [[email or web address] [place] [address] 11/29/2020 10:22:36 11/29/2020 13:45:25 test positive 077874871 Z32.01 Body mass index 40+ - severely obese 991588240 Z68.41 Ousmane thyroiditis 21 193203 E06.3 Mixed anxi ety and depressive disorder 292641002 F41.8 RhD negative 931915004 Z 01.83 [id number] Christina Cooper MD [facility] [address],[place] [address] 01/03/2021 09:59:06 01/03/2021 11:01:14 screening 400303852 Z36.82 [id number] Christina Cooper MD [facility] [address],[place] [address] 01/03/2021 10:01:07 01/03/2021 11:05:04 Ousmane thyroiditis 28974863 E06.3 Mixed anxi ety and depressive disorder 448807770 F41.8 Body mass index 40+ - severely obese 698686285 Z68.41 Nausea and vomiting 1693 1999 R11.2 [id number] Christina Cooper MD [facility] [address],[place] [address] 01/17/2021 10:52:58 01/17/2021 11:36:42 Anxiety in 6513654080 9109 F41.9 [id number] Christina Cooper MD [facility] [address],[place] [address] 01/30/2021 10:48:12 01/30/2021 11:29:53 Routine care 445595960 Z34.91 [id number] Christina Cooper MD [facility] [address],[place] [address] 03/01/2021 09:30:45 03/01/2021 10:37:20 screening for malformation 639667112 Z36.3 [id number] MD Karly [place] [address],[place] [address] 03/01/2021 09:31:31 03/01/2021 10:54:17 Body mass index 40+ - severely obese 744491152 Z68.41 Ousmane thyroiditis 21 767376 E06.3 Mixed anxi ety and depressive disorder 261385833 F41.8 [id number] MD Rafy Colvin [address],[place] [address] 04/04/2021 14:11:19 04/04/2021 15:10:11 Mixed anxiety and depressive disorder 254030128 F41.8 Ousmane thyroiditis 21 863755 E06.3 Body mass index 40+ - severely obese 660551959 Z68.41 - induced hypertension 18854525 O13.9 [id number] Christina Cooper MD [place] [address] [address] 04/21/2021 10:17:30 04/21/2021 10:58:25 Routine care 432997441 Z34.91 Mixed anxi ety and depressive disorder 949150563 F41.8 Ousmane thyroiditis 21 501691 E06.3 [id number] Christina Cooper MD [place] [address] [address] 05/05/2021 10:09:02 05/05/2021 10:32:33 Maternal obesity complicating , childbirth and the puerperium, antepartum 2374788674 07 O99.213 Ousmane thyroiditis 21 948313 E06.3 Mixed anxi ety and depressive disorder 868318833 F41.8 Health Concerns Section Related Observation LastModified by Organization Detai ls LastModified Time None Recorded Concern Status LastModified by Organization Details LastModified Time None Recorded Advance Directives Directive None Recorded Payers Insurance Date Sequence Insurance Name Policy Number Policy Maguire Covered Member ID Maguire Member ID Guarantor Name 05/08/2021 1 [place] 106 Yulisa Adela Mota [id number] Jennifer Tirado OBGyn Episode Ob Episode Information Episode Created Date Number of Fetuses Patient Bloodtype Patient rh Status Prepregnancy Weight lbs Domestic Partner Domestic Partner Phone Father Name School Psychologist Assistant Status 01/04/20 21 1 O Positive 268 CLOSED Fetus Data First Name Last Name Admitted to NICU Weight (g) Sex Living Outcome Pediatric Complications Fetus ID Race Codes Race Delivery Type [id number] Problems Problem Notes Problem Name Start Date End Date Resolution Snomed Code Not e Ousmane thyroiditis 11/29/2020 9929323 2 no meds since age 18. TSH 1.32 on 01/30. Repeat TSH with 28w labs Maternal obesity complicating , childbirth and the puerperium, antepartum 937856890739 BMI 4 0+- ante testing 34w Mixed anxiety and depressive disorder 11/29/2020 818843354 stable. DO NOT ASK PT ABOUT THIS UNTIL PP VISIT. SHE WILL BRING IT UP IF IT IS AN ISSUE. Glucose level outside reference range 533153281 Failed 1 hr GTT, passed 3 hr GTT Anemia 04/24/2021 667132468 slow 1 ta b daily Trina Calculation Initial Trina Date Initial Exam Date Initial Exam Provider Initial Ultrasound Date Last Menstrual Period Date Ultra Sound Weeks Gestation 07/10/2021 01/03/2021 11/29/2020 10/03/2020 8 Eighteen To Twenty Week Trina Update Ultra Sound Date Fundal Height At Umbil Quickening Date Ultra Sound Latest Weeks Gestation Final Trina Confirmed By Final Trina Confirmed Date Final Trina Date Ultra Sound Latest Days Gestation 0 [email or web address] 01/03/2021 07/11/19 22 0 Pre- Flowsheet Flowsheet Date 01/03/2021 Land Score Blood Edema Fundus Height Fundus Units Glucose Ketones Leukocytes Nitrite Labor Signs Protein Cervic Dilation Cervic Effacement Cervic Station neg none trace Type Weight in lbs Pre/Post Dialysis Refused Weight 262.599108816195 BP Diastolic BP Location Tested BP Systolic BP Type 84 137 Fetus Heart Rate Present A 145 Fetus Movement A No Comments Jennifer is a at 13.1 f or care. NIPT low risk. TSH today. Has BMI >40 and anxiety/depression, currently unmedicated. She states her anxiety has been ok except for concern re another miscarriage, but she is not having her traditional panic attacks and declines medication. She will look into counseling. Will add quick visit in 2 weeks for reassurance. Will get flu shot soon. Discussed testing at 34 weeks. Still vomiting 2x per day, unisom and B6 not helping. will try zofran. Flowsheet Date 01/17/2021 Land Score Blood Edema Fundus Height Fundus Units Glucose Ketones Leukocytes Nitrite Labor Signs Protein Cervic Dilation Cervic Effacement Cervic Station Type Weight in lbs Pre/Post Dialysis Refused Weight 264.078643970265 BP Diastolic BP Location Tested BP Systolic BP Type 79 109 Fetus Heart Rate Present A 155 Fetus Movement A No Comments Here just to hear baby becau se of anxiety. Got flu shot. N/V a little better, still sick every night, but tolerating food during the day. FU 2 more weeks. Flowsheet Date 01/30/2021 Land Score Blood Edema Fundus Height Fundus Units Glucose Ketones Leukocytes Nitrite Labor Signs Protein Cervic Dilation Cervic Effacement Cervic Station neg none trace Type Weight in lbs Pre/Post Dialysis Refused Weight 263.512633323729 BP Diastolic BP Location Tested BP Systolic BP Type 82 133 Fetus Heart Rate Present A 145 Fetus Movement A No Comments Doing well. Maybe FM once. T SH and AFP today. Anatomy US next visit. Starting to feel better. Anxiety a little better. Flowsheet Date 03/01/2021 Land Score Blood Edema Fundus Height Fundus Units Glucose Ketones Leukocytes Nitrite Labor Signs Protein Cervic Dilation Cervic Effacement Cervic Station Type Weight in lbs Pre/Post Dialysis Refused BP Diastolic BP Location Tested BP Systolic BP Type Fetus Heart Rate Present Fetus Movement Comments Flowsheet Date 03/01/2021 Land Score Blood Edema Fundus Height Fundus Units Glucose Ketones Leukocytes Nitrite Labor Signs Protein Cervic Dilation Cervic Effacement Cervic Station neg trace 23 none trace Type Weight in lbs Pre/Post Dialysis Refused Weight 263.473709593461 BP Diastolic BP Location Tested BP Systolic BP Type 82 139 Fetus Heart Rate Present A 160 Fetus Movement A Yes Comments Doing well just some discomf orts. Anatomy US today complete and wnl. Mood ok. Will repeat TSH with 28 week labs. Will do COVID booster when due . Flowsheet Date 04/04/2021 Land Score Blood Edema Fundus Height Fundus Units Glucose Ketones Leukocytes Nitrite Labor Signs Protein Cervic Dilation Cervic Effacement Cervic Station neg none 28 none trace Type Weight in lbs Pre/Post Dialysis Refused Weight 271.474345455580 BP Diastolic BP Location Tested BP Systolic BP Type 89 147 90 140 Fetus Heart Rate Present A 155 Fetus Movement A Yes Comments Doing ok, anxiety bad today. has therapist, not interested in medication. Will do EPDS next visit. PIH labs today, denies sx other than anxiety. TSH today. 28w labs next visit. Precautions given. Flowsheet Date 04/21/2021 Land Score Blood Edema Fundus Height Fundus Units Glucose Ketones Leukocytes Nitrite Labor Signs Protein Cervic Dilation Cervic Effacement Cervic Station neg trace 32 none trace Type Weight in lbs Pre/Post Dialysis Refused Weight 272.527407504285 BP Diastolic BP Location Tested BP Systolic BP Type 81 136 Fetus Heart Rate Present A 145 Fetus Movement A Yes Comments Doing well. Filled her EPDS out to score a zero. States she is kind of angry we keep asking her about it. It makes her feel guilty. Discussed that we screen everyone, and do check on it frequently with those with a history because we have seen it get worse in and we just want her to be healthy and happy. She understands this, but requests that we no longer bring it up until . She will discuss it with us if needed.GCT and TSh today. [facility] labs wnl last week including 24 hr urine of 180. She complains of pelvis and hip pain, very hard to turn over in bed. Discussed tylenol, massage, PT if she wants it. Will let us know if she wants PT referral. Flowsheet Date 05/05/2021 Land Score Blood Edema Fundus Height Fundus Units Glucose Ketones Leukocytes Nitrite Labor Signs Protein Cervic Dilation Cervic Effacement Cervic Station neg none 32 none trace Type Weight in lbs Pre/Post Dialysis Refused Weight 274.369086164348 BP Diastolic BP Location Tested BP Systolic BP Type 82 140 Fetus Heart Rate Present A 130 Fetus Movement A Yes Comments Doing well. Great FM. Passed 3hr. TSH wnl. Monitor BP. Labs were wnl. Ante testing to start at 34w. Menstrual History Last Menstrual Date Menses Monthly On Bcp Conception Prior Menses Frequency Hcg Plus Date Menarche Onset Age 0810/03/2020 Genetic Screening And Infection History Question Response Note Mental Retardation/Autism false Patient's Age Will Be 35 Years Or Older At Estim ated Date of Delivery false Thalassemia (Uzbek, Latvian, Mediterranean, Or Background): MCV < 80 false Neural Tube Defect (Meningomyelocele, Spina Bifi da, Or Anencephaly) false Congenital Heart Defect false Down Syndrome false Gus-Sachs (eg, Zoroastrian, Cajun, Northern Irish-Faroese) f alse Sunny Disease false Sickle Cell Disease Or Trait () false Hemophilia Or Other Blood Disorders false Muscular Dystrophy false Cystic Fibrosis false Halstead's Chorea false Intellectual Disability/Autism false If Yes, Was Person Tested For Fragile X? false Other Inherited Genetic Or Chromosomal Disorder false Maternal Metabolic Disorder (eg, Type 1 Diabetes , PKU) false Patient Or Baby's Father Had A Child With Defects Not Listed Above false Recurrent Loss, Or A Stillbirth false Medications (including Suppl ements, Vitamins, Herbs, OTC Drugs), Illicit/Recreational Drugs, Alcohol false If Yes, Agent(s) And Strength/Dosage false Any Other Genetic History false Live With Someone With TB Or Exposed To TB false Patient Or Partner Has History Of Genital Herpes false Rash Or Viral Illness Since Last Menstrual Perio d false History Of STD, Gonorrhea, Chlamydia, HPV, Syphi lis false Other Infection History false History of HIV false History of Hepatitis false Prior GBS-infected child false Hemoglobinopathy Or Carrier false Other Structural Defect false Recent Travel History Outside of Country false Delivery Information Delivery Date Delivery Type Labor Anesthesia Weeks Gestation Incision Type Labor Labor Length Hrs Delivered By Post Complications Tubal Sterilization Discharge Date Comments Discharge Information Feeding Method Contraceptive Method Maternal HG B and HCT Levels Ob Episode Information Episode Created Date Number of Fetuses Patient Bloodtype Patient rh Status Prepregnancy Weight lbs Domestic Partner Domestic Partner Phone Father Name School Psychologist Assistant Status 06/22/19 21 1 CLOSED Fetus Data First Name Last Name Admitted to NICU Weight (g) Sex Living Outcome Pediatric Complications Fetus ID Race Codes Race Delivery Type , Spontane ous 9291 Trina Calculation Initial Trina Date Initial Exam Date Initial Exam Provider Initial Ultrasound Date Last Menstrual Period Date Ultra Sound Weeks Gestation 0 Eighteen To Twenty Week Trina Update Ultra Sound Date Fundal Height At Umbil Quickening Date Ultra Sound Latest Weeks Gestation Final Trina Confirmed By Final Trina Confirmed Date Final Trina Date Ultra Sound Latest Days Gestation 0 0 Menstrual History Last Menstrual Date Menses Monthly On Bcp Conception Prior Menses Frequency Hcg Plus Date Menarche Onset Age Delivery Information Delivery Date Delivery Type Labor Anesthesia Weeks Gestation Incision Type Labor Labor Length Hrs Delivered By Post Complications Tubal Sterilization Discharge Date Comments 1 Discharge Information Feeding Method Contraceptive Method Maternal HG B and HCT Levels
[2024-09-16 13:00] LABS: Hematocrit 35.0 % (37.0-47.0); Hemoglobin 10.9 g/dL (12.0-15.0); Immature Granulocyte Percent A 0.6 % (0-0.5); Lymphocytes Absolute Auto 1.27 K/mm3 (0.9-3.2); Mean Corpuscular HGB Conc 31.1 g/dl (32-36); Mean Corpuscular Hemoglobin 25.3 pg (26-34); Mean Corpuscular Volume 81.4 fl (80-100); Nucleated Red Blood Cells Absolute Auto 0.000 K/mm3 (0.0-0.012); Nucleated Red Blood Cells Perc 0.0 % (0.0-0.2); Platelet Count Result 277 k/mm3 (150-375); Red Blood Count 4.30 M/mm3 (4.2-5.4); White Blood Count 4.9 K/mm3 (4.5-10.0)
== END 2024-09-16 12:27 | disposition home or self-care (01) ==
LOC: ANHSURGERY 12:30
PROVIDERS: Visit Provider Obstetrics & Gynecology
DX: N93.9 Abnormal uterine and vaginal bleeding, unspecified (principal); N85.2 Hypertrophy of uterus; R58 Hemorrhage, not elsewhere classified
CPT/HCPCS: 36415; 85025; 86850; 86900; 86901

== ENCOUNTER 2024-09-18 00:07 | Day surgery (SDC) | payer BC, SELFPAY ==
[2024-09-14 10:08] VITALS: BMI 42.3
--- NOTE | 2024-09-14 10:18 | SUR.PREOP ---
Report to the Outpatient Waiting Room, entrance under the green pavilion located off [facility], at time 11:30a.m. on date 09/18/24. Planned Procedure Time: 1:30p.m.? Time changes happen often and if your time is changed the preop area will call you the afternoon before. - You and your visitor will be asked to self-screen and do not enter if you have any COVID symptoms. Please call surgeon if you need to reschedule. - A mask is optional within the hospital at this time. Patients may have clear liquids (water, carbonated beverages, clear teas, apple juice) until 3 hours prior to surgery with a maximum of 20 ounces. - No food from midnight until time of surgery and no smoking, or chewing tobacco (or any form of nicotine). No chewing gum, candy or mints. Take only the following medications with a SIP of water on the morning of surgery: N/A DO NOT STOP ANY OF YOUR OTHER PRESCRIPTION MEDICATIONS PRIOR TO SURGERY EXCEPT THE FOLLOWING Hold all vitamins and supplements for 3 days per anesthesiologist. Medications to discontinue per physician Vitamins and Supplements Date to take last dose 09/15/2024 Please no make-up, nail sudanese, hairspray, perfume, deodorant, or body powder the day of surgery.? No jewelry (including any body piercings) or valuables the day of surgery, leave them at home.? Please take a shower or bath the night before, or the morning of, surgery with an antibacterial soap.? Wear comfortable, loose fitting clothing.? Children are encouraged to wear pajamas. - Jewelry must be removed prior to entering the operating room.? Rings and piercings that are not removed may be cut off. - The hospital will not accept responsibility for valuables.? - Please leave all valuables, including medications, at home the day of surgery. If you are going home after surgery, a licensed milk pickup truck driver must drive you home.? - NO public transportation without another adult if you receive anesthesia. - We recommend that an adult stay with you for 24 hours following discharge. - We also recommend that you do not drive, make important decision, drink alcoholic beverages, or take any drugs that were not prescribed by your health care provider for at least 24 hours after your discharge time. For Pediatric surgeries, we recommend two adults accompany the child home. Follow any additional instructions given to you from your surgeon. Telephone instructions given to Jennifer Tirado and asked if any additional questions and then verbalized understanding. Patient advised to call surgeon office or pre surgery nurse liaison [phone] if any additional questions.
--- NOTE | 2024-09-15 07:36 | PM.IMHP ---
H&P: HPI History of Present Illness Date/Time: 09/15/24 07:36 Chief Complaint: Patient complains of severe pelvic pain with irregular excessive bleeding the refractory to medical therapy this well as an enlarged uterus Narrative: This is a 24-year-old [id number]-[id number] mom who has undergone 3 previous deliveries who desires permanent fix for excessive heavy bleeding she has also undergone D and C for retained placental fragments and ultrasound shows very thickened endometrium and enlarged uterus. Significantly her last section show a window of the uterus making and dangerous for further . Risks and benefits of the procedure reviewed including not exclusive of , aspiration pneumonia, bleeding, transfusion, perforation injury to bowel, bladder, ureters, or other internal organs with need for open laparotomy. She had all questions answered and asked to proceed Review of Systems Review of Systems: CONSTITUTIONAL: Denies fever, chills, or sweats. EYES: Denies visual changes, redness, or discharge. ENT: Denies rhinorrhea, congestion, sore throat, or otalgia. CARDIOVASCULAR: Denies chest pain, palpitations, or edema. RESPIRATORY: Denies cough or dyspnea. GASTROINTESTINAL: Denies abdominal pain, nausea, vomiting, or diarrhea. GENITOURINARY: Denies dysuria or hematuria. SKIN: Denies rash or itching. MUSCULOSKELETAL: Denies back pain, joint pain, or myalgia. NEUROLOGIC: Denies headache, numbness, or weakness. PSYCHIATRIC: Denies anxiety or depression. [facility], [facility] Past Medical History Medical History Ousmane's disease Duodenal ulcer disease Concussion without loss of consciousness, initial encounter Surgical History Surgical History H/O dilation and curettage (~08/2021) H/O: (~06/28/21) Family History Family History Mother Family history of thyroid disease Patient's mother is in good health Grandparent Family history of lung cancer Father Patient's father is in good health Sibling Patient's brother is in good health Social History Social History Smoking status: Never smoker Alcohol intake: never Substance use: never Substance use type: does not use Lack of Transportation: No Lack of Food: Never True Current Housing: I Have Housing Concerned About Future Housing: No Difficulty Paying Gas/Electric Bills: No Difficulty Paying for Meds: No Currently Unemployed: No Education: Associate Degree Difficulty w/ Childcare or Family Care: No Living arrangements: with family Additional living arrangements comments: Occupation/Education: student Gender identity (if verbalized by the patient): Female Sexual Orientation (if Verbalized by the Patient): Straight or Heterosexual Spiritual care concerns: No Meds Home Medications and Allergies Home Medications ?Medication ?Instructions ?Recorded ?Confirmed ?Type prenat.vits,homer,tex-ofbu-oknze 1 tablet PO DAILY 12/07/21 09/14/24 History ferrous sulfate 325 mg (65 mg 325 mg PO DAILY 01/11/22 09/14/24 History iron) tablet (FeroSul) Allergies Allergy/AdvReac Type Severity Reaction Status Date / Time No Known Allergies Allergy Verified 09/14/24 10:07 Exam Const: General: cooperative and comfortable Nutritional Appearance: obese Orientation/consciousness: oriented to person, oriented to place and oriented to time HENMT: Head: normal to inspection Resp: Effort & Inspection: normal respiratory effort Cardio: Rate: regular rate Rhythm: regular rhythm Heart sounds: S1 normal heart sound present and S2 normal heart sound present GI: Inspection: normal to inspection : External Female Exam: normal external appearance Speculum Exam - Vagina: normal appearance of the vagina Speculum Exam - Cervix: normal appearance of the cervix Bimanual exam- vagina & uterus: boggy, enlarged and Uterine tenderness Bimanual Exam- Adnexa, other: normal adnexae Assessment and Plan Assessment and plan (1) Enlarged uterus: Code(s): N85.2 - Hypertrophy of uterus Status: Acute (2) Obesity: Code(s): E66.9 - Obesity, unspecified Status: Acute (3) Anemia: Code(s): D64.9 - Anemia, unspecified Status: Acute (4) Excessive bleeding: Code(s): R58 - Hemorrhage, not elsewhere classified Status: Acute Plan Will proceed with robotic total vaginal hysterectomy bilateral salpingectomy
[2024-09-18] VITALS (8 sets, daily range): BP systolic 117–135; BP diastolic 70–85; PULSE 77–101; RESP 16–20; TEMP 36.3–36.8; O2SAT 92–100
--- OUTSIDE RECORDS SUMMARY | 2024-09-18 00:10 | XMS_ITS | Clinical Summary ---
Author Organization [facility] Address [address] [place] [address] Phone Care Team Providers Care Tennis [employer] Instructor Name Role Phone Provider, Not On File [...] patient's age to complete this topic Insurance [facility] Care Teams Tennis [employer] Instructor Relationship Specialty Start Date End Date Provider, Not On File ID PCP - General 12/20/23
--- OUTSIDE RECORDS SUMMARY | 2024-09-18 00:10 | XMS_ITS | Clinical Summary ---
Author Organization [facility] Address [address] [place] [address] Care Team Providers Care Butcher All Round Name Role Phone Lola Oglesby MD Primary Care Provider [phone] Ebony Patton DO Unavailable [phone] Source Comments [facility],non-owned Affiliates and Associated Physician Practices is amultiple site organization consisting of ambulatory clinics and hospital sitesin [place], [place], [place] and [place]. This disclosure is being madepursuant to the Care Everywhere program and may not contain all informatio navailable regarding this patient. Last updated 17.[facility] Allergies No known active allergies Medications * [...] on file Legal Sex Female 5:41 AM MENTAL HEALTH ASSOCIATE Gender Identity Not on file Sexual Orientation Not on file Last Filed Vital Signs Vital Sign Reading Time Taken Comments Blood Pressure 117/68 01/23/2021 6:03 PM MENTAL HEALTH ASSOCIATE Pulse 98 01/23/2021 6:03 PM MENTAL HEALTH ASSOCIATE Temperature 36.4 C (97.5 F) 01/23/2021 6:03 PM MENTAL HEALTH ASSOCIATE Respiratory Rate 18 01/23/2021 6:03 PM MENTAL HEALTH ASSOCIATE Oxygen Saturation 99% 01/23/2021 6:03 PM MENTAL HEALTH ASSOCIATE Inhaled Oxygen Concentration 100% 08/08/2011 1 :35 AM CDT Weight 122 kg (269 lb) 07/22/2020 2:08 PM CDT Height 170.2 cm (5' 7) 04/26/2020 5:17 PM MENTAL HEALTH ASSOCIATE Body Mass Index 42.13 04/26/2020 5:17 PM MENTAL HEALTH ASSOCIATE Plan of Treatment Health Maintenance Due Date [...] complete this topic Insurance ANTHEM Care Teams Butcher All Round Relationship Specialty Start Date End Date Lola Oglesby MD [address] [phone] PCP - General Family Medicine 04/25/19 Ebony Patton DO [address] [phone] 04/25/19
--- OUTSIDE RECORDS SUMMARY | 2024-09-18 00:10 | XMS_ITS | Data Portability ---
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 Plan of Treatment Reminders Order Date Submit Date Provider Last Modified By Organization Details Last Modified Time Details Appointments None recorded. Lab glycohemogl obin, total, blood [address] (Lab), [address] [place], [address], 4 08:24:35 TSH, serum or plasma [address] (Lab), [address] [place], [address], 4 08:24:36 Referral None recorded. Procedures None recorded. Surgeries None recorded. Imaging US, breast, bilateral - YURIY, concerns for inflammator y breast cancers 2023 [facility], [address] [address], [place], [address], 4 13:11:22 Medication Orders fluticasone propionate 50 mcg/actuati on nasal spray,suspe nsion 2023 [facility] #[id number], [address], [place], [id number], 4 09:29:53 cetirizine 10 mg tablet 2023 [facility] #[id number], [address], [place], [place], [id number], 4 09:29:51 doxycycline hyclate 100 mg capsule 2023 0[address] [facility] #[id number], [address], [place], [place], [id number], 4 09:29:52 Patient TargetsNo targets recorded. Patient InstructionsNo instructions recorded. Reason for Referral None Reported. Results Created Date Observation Date Name Description Value Unit Range Abnormal Flag Note LastModifiedBy Organization Detail LastModifiedTime 06/25/19 24 06/25/2023 , radha owens No observ ation record ed. [address], [place], [address], 06/25/2023 15:08:24 Result Notes None recorded. Problems Name Problem SNOMED Code Status Onset Date Resolution Date Notes Provider Name and Address Organization Details Recorded Time Weight gain 7510597 Active 2023 RISSA Neff [address], [address], [place], [address], [employer] 4 09:55:11 Bilateral changes in skin of breasts 11510763898810 105 Active 2023 RISSA Neff [address], [address], [place], [address], [employer] 4 10:00:55 Serous otitis media 60332457 Active 2023 RISSA Neff [address], [address], [place], [address], [employer] 4 09:26:51 Serous otitis media 28235159 Active 2023 RISSA Neff [address], [address], [place], [address], [employer] 4 09:27:04 Problem Notes None recorded. Procedures Surgical History Date Name Laterality Status Provider Name and Address Organization Details Recorded Time delivery completed Zoey Berry RN [place] [facility] [employer] [facility] 06/12/2023 09:30:54 Imaging Results None recorded. Procedure [...] Address Organization Details Last Updated DateTime 4 319718. 01 g 42.9 kg/m2 170.18 cm 96.9 [degF] 87 /min 20 /min 98 % 98 % 120/80 mm[Hg] Zoey Berry RN [facility] 09:29:39 Date Recorded Body height Body mass index (BMI) Body weight Body temperature Heart rate Oxygen saturation Oxygen saturation in Arterial blood by Pulse oximetry Systolic And Diastolic Provider Name and Address Organization Details Last Updated DateTime 4 170.18 cm 42.1 kg/m2 877200. 7 g 97.6 [degF] 95 /min 98 % 98 % 130/70 mm[Hg] Zoey Berry RN [facility] 4 09:17:01 Social History Question Answer Notes LastModified by Organization Details LastModified Time Tobacco Smoking Status Never Smoker Zoey Berry RN [facility] 06/12/2023 09:31:41 Do You Have An [...] Have You Had [facility] That Case Was Ill? No Information [...] Or The Highest Degree You Have Received? [id number] Information not available 06/12/2023 Have There Been Any Changes To Your Family Or Social Situation? No Information not available 06/12/2023 Do You Use Insect Repellent Routinely? Yes Information not available 06/12/2023 Where Do You Live? SingleLevelHouse Information not available 06/12/2023 Do You Have A Medical Power Of Associate Project Manager? No Information not available 06/12/2023 How Many [...] anxious, or unable to sleep at night)? [id number] Information not available 06/12/2023 Family History Relationship [...] SNOMED-CT Code Diagnosis ICD10 Code Diagnosis Note [id number] Yovany Mobley MD [address] [address] 06/12/2023 09:19:04 06/12/2023 10:25:08 Weight gain 3414247 R63.5 Bilateral changes in skin of breasts 9675420105 7862984 N64.59 [id number] Yovany Mobley MD [address] [address] 01/07/2024 09:01:56 01/07/2024 09:36:45 Serous otitis media 60298496 H65.93 Health Concerns Section Related Observation LastModified by Organization Detai ls LastModified Time None Recorded Concern Status LastModified by Organization Details LastModified Time None Recorded Advance Directives Directive N: Payers Insurance Date Sequence Insurance Name Policy Number Policy Maguire Covered Member ID Maguire Member ID Guarantor Name 02/20/2024 1 [place] [id number] Yulisa Mota [id number] Jennifer Tirado Notes Date Note Type Note [...] regularlyDental exam: goes regularly RISSA Neff [address], [place], [address], [employer] 06/12/2023 10:18:05 01/07/2024 text/html Jennifer Tirado is a 23 year old female patient here today with sick concerns. She states that she began with a deep productive cough (brown/green phlegm) on 12/30, ear fullness. She had a fever for 3 days but has resolved. Associated fatigue, ear pain, sore throatShe is currently 22 weeks RISSA Neff [address], [place], [address], [employer] 01/07/2024 09:31:02 OBGyn Episode No OBEpisode recorded.
--- OUTSIDE RECORDS SUMMARY | 2024-09-18 00:10 | XMS_ITS | Data Portability ---
Author Organization [facility] Address [address] [place] [address] Care Team Providers Care Mobile Application Developer Name Role Phone DARIUSZ LOPEZ Primary Care Provider Assessment No assessment recorded. Plan of Treatment Reminders Order Date Submit Date Provider Last Modified By Organization Details Last Modified Time Details Appointments None recorded. Lab CMP, serum or plasma 2021 022 [facility] (Lab), [address] [place], [address], 2 05:09:41 CBC w/ auto diff 2021 022 [facility] (Lab), [address] [place], [address], 2 05:09:40 uric acid, serum or plasma 2021 022 [facility] (Lab), [address] [place], [address], 2 05:09:41 protein:cre atinine ratio, urine 2021 022 [facility] (Lab), [address] [place], [address], 2 05:09:42 TSH, serum or plasma 2021 022 [facility] (Lab), [address] [place], [address], 05:09:41 Referral None recorded. Procedures None recorded. Surgeries None recorded. Imaging US, obstetric, 2nd or 3rd trimester [address], [address], [place], [address], 10:50:41 US, obstetric, transvagina l 2020 [address], [address], [place], [address], 10:51:10 Medication Orders None recorded. Patient TargetsNo targets recorded. Patient InstructionsNo instructions recorded. Reason for Referral None Reported. Results Created Date Observation Date Name Description Value Unit Range Abnormal Flag Note LastModifiedBy Organization Detail LastModifiedTime 01/31/2001/30/2021 TSH, REFLE X FREE T4 TSH 1.32 uIU/m L 0.30-5 .33 Not Available [facility] (Lab) [address], [place], [address], 02/01/2021 17:12:35 01/31/20 21 01/30/2021 AFP, MATER NAL SCREE N interpretati on Scree n negat yvrose for open NTD. Not Available [facility] (Lab) [address], [place], [address], 02/01/2021 17:12:35 01/31/20 21 01/30/2021 AFP, MATER NAL SCREE N msafp risk open ntd <1 IN 5000 Not Available [facility] (Lab) [address], [place], [address], 02/01/2021 17:12:35 01/31/20 21 01/30/2021 AFP, MATER NAL SCREE N AFP, serum 19.5 NG/mL Not Available [facility] (Lab) [address], [place], [address], 02/01/2021 17:12:35 01/31/20 21 01/30/2021 AFP, MATER NAL SCREE N AFP MOM 0.71 Not Available [facility] (Lab) [address], [place], [address], 02/01/2021 17:12:35 01/31/20 21 01/30/2021 AFP, MATER [...] jorge l baby and that 2-3% of [facility] rns have some type of physi homer or menta l defec t, many of which are undet ectab le throu gh any known prena yahir diagn ostic techn ique. Not Available [facility] (Lab) [address], [place], [address], 02/01/2021 17:12:35 01/31/20 21 01/30/2021 AFP, MATER [...] s sarah ic couns elor or call [phone]( [phone] Inter preti ve Cutof fs Scree n [...] gurinder MOM for tripl ets Not Available [facility] (Lab) [address], [place], [address], 02/01/2021 17:12:35 01/31/20 21 01/30/2021 AFP, MATER NAL SCREE N gestational age 17.0 weeks Not Available [facility] (Lab) [address], [place], [address], 02/01/2021 17:12:35 01/31/20 21 01/30/2021 AFP, MATER NAL SCREE N weight quad 263 lbs Not Available [facility] (Lab) [address], [place], [address], 02/01/2021 17:12:35 01/31/20 21 01/30/2021 AFP, MATER NAL SCREE N patient's trina 2021 Not Available [facility] (Lab) [address], [place], [address], 02/01/2021 17:12:35 01/31/20 21 01/30/2021 AFP, MATER NAL SCREE N trina determined by LMP Not Available [facility] (Lab) [address], [place], [address], 02/01/2021 17:12:35 01/31/20 21 01/30/2021 AFP, MATER NAL SCREE N ethnic origin CAUCAS GERALD Not Available [facility] (Lab) [address], [place], [address], 02/01/2021 17:12:35 01/31/20 21 01/30/2021 AFP, MATER NAL SCREE N number of fetus(es)? 1 Not Available [facility] (Lab) [address], [place], [address], 02/01/2021 17:12:35 01/31/20 21 01/30/2021 AFP, MATER NAL SCREE N insulin dependent? NO Not Available [facility] (Lab) [address], [place], [address], 02/01/2021 17:12:35 01/31/20 21 01/30/2021 AFP, MATER NAL SCREE N repeat specimen NO Not Available [facility] (Lab) [address], [place], [address], 02/01/2021 17:12:35 01/31/20 21 01/30/2021 AFP, MATER NAL SCREE N hist neural tube defect NO Not Available [facility] (Lab) [address], [place], [address], 02/01/2021 17:12:35 01/31/20 21 01/30/2021 AFP, MATER NAL SCREE N history of down synd? NO Not Available [facility] (Lab) [address] [place], [address], 02/01/2021 17:12:35 01/31/20 21 01/30/2021 AFP, MATER NAL SCREE N donor egg NO Not Available [facility] (Lab) [address], [place], [address], 02/01/2021 17:12:35 01/31/20 21 01/30/2021 AFP, MATER NAL SCREE N donor age at egg retrieval NOT GIVEN TRINA: 07/10 TRINA Deter mined by: LMP Race: White Diabe dana?: N Fetus numbe r: 1 Chron icity : First time pregn ant, Secon d time pregn ant: Secon d time Gesta mayur l Age: 17w0d LMP: 10/03 Nucha l Trans lucen cy: 1.8mm Clear Spring -Rump Lengt h: 7.71c m Ultra sound Date: 01/03 Histo ry of Neura l tube defec t or Down Syndr ome?: N IVF pregn radha? : N Perfo rming Organ izati on Infor matio n: Site ID: CB Name: [facility] Didier Addre ss: [address] [place] [address] Dire tor: Dequan gonsales M.D. Not Available [facility] (Lab) [address], [place], [address], 02/01/2021 17:12:35 01/31/20 21 01/30/2021 drug scree n, urine Amphetamines : negati ve Not Available [facility] [address], [place], [address], 01/30/2021 10:58:31 01/31/20 21 01/30/2021 drug scree n, urine Cannabinoids : negati ve Not Available [facility] [address], [place], [address], 01/30/2021 10:58:31 01/31/20 21 01/30/2021 drug scree n, urine Opiates: negati ve Not Available [facility] [address], [place], [address], 01/30/2021 10:58:31 01/31/20 21 01/30/2021 drug scree n, urine Benzodiazepi armen: negati ve Not Available [facility] [address], [place], [address], 01/30/2021 10:58:31 04/04/19 22 04/04/2021 CBC W/DIF F WBC 8.2 10'3/ uL 3.6-10 .2 Not Available [facility] (Lab) [address], [place], [address], 04/05/2021 05:09:35 04/04/19 22 04/04/2021 CBC W/DIF F RBC 3.90 10'6/ uL (based on docume nted legal sex) 4.10-5 .30 low Not Available [facility] (Lab) [address], [place], [address], 04/05/2021 05:09:35 04/04/19 22 04/04/2021 CBC W/DIF F HGB 11.3 g/dL (based on docume nted legal sex) 11.9-1 5.8 low Not Available [facility] (Lab) [address], [place], [address], 04/05/2021 05:09:35 04/04/19 22 04/04/2021 CBC W/DIF F HCT 35.6 % (based on docume nted legal sex) 37.4-4 8.3 low Not Available [facility] (Lab) [address], [place], [address], 04/05/2021 05:09:35 04/04/19 22 04/04/2021 CBC W/DIF F MCV 92.0 fL 82.0-9 9.0 Not Available [facility] (Lab) [address], [place], [address], 04/05/2021 05:09:35 04/04/19 22 04/04/2021 CBC W/DIF F MCH 29.0 pg 27.0-3 3.0 Not Available [facility] (Lab) [address], [place], [address], 04/05/2021 05:09:35 04/04/19 22 04/04/2021 CBC W/DIF F MCHC 32.0 g/dL 32.0-3 6.0 Not Available [facility] (Lab) [address] [facility], [place], [address], 04/05/2021 05:09:35 04/04/19 22 04/04/2021 CBC W/DIF F RDW 14.0 % 11.0-1 5.0 Not Available [facility] (Lab) [address] [facility], [place], [address], 04/05/2021 05:09:35 04/04/19 22 04/04/2021 CBC W/DIF F plt 250 10'3/ uL 150-45 0 Not Available [facility] (Lab) [address], [place], [address], 04/05/2021 05:09:35 04/04/19 22 04/04/2021 CBC W/DIF F MPV 10.7 fL 9.8-12 .7 Not Available [facility] (Lab) [address] [address], [place], [address], 04/05/2021 05:09:35 04/04/19 22 04/04/2021 CBC W/DIF F NRBC's 0.00 % 0 Not Available [facility] (Lab) [address] [address], [place], [address], 04/05/2021 05:09:35 04/04/19 22 04/04/2021 CBC W/DIF F absolute NRBCs 0.0 10'3/ uL 0 Not Available [facility] (Lab) [address] [facility] [address], [place], [address], 04/05/2021 05:09:35 04/04/19 22 04/04/2021 CBC W/DIF F neutrophils 75.0 % 37.0-7 2.0 high Not Available [facility] (Lab) [address] [place], [address], 04/05/2021 05:09:35 04/04/19 22 04/04/2021 CBC W/DIF F lymphocytes 16.0 % 16.0-4 8.0 Not Available [facility] (Lab) [address] [facility], [place], [address], 04/05/2021 05:09:35 04/04/19 22 04/04/2021 CBC W/DIF F monocytes 7.0 % 4.0-14 .0 Not Available [facility] (Lab) [address] [address], [place], [address], 04/05/2021 05:09:35 04/04/19 22 04/04/2021 CBC W/DIF F eosinophils 1.0 % 0.0-9. 0 Not Available [facility] (Lab) [address] [address], [place], [address], 04/05/2021 05:09:35 04/04/19 22 04/04/2021 CBC W/DIF F basophils 0.0 % 0.0-2. 0 Not Available [facility] (Lab) [address] [address], [place], [address], 04/05/2021 05:09:35 04/04/19 22 04/04/2021 CBC W/DIF F immature granulocytes 1.0 % no define d refere nce range Not Available [facility] (Lab) [address] [address], [place], [address], 04/05/2021 05:09:35 04/04/19 22 04/04/2021 CBC W/DIF F absolute neutrophils 6.2 10'3/ uL 1.1-6. 0 high Not Available [facility] (Lab) [address] [address], [place], [address], 04/05/2021 05:09:35 04/04/19 22 04/04/2021 CBC W/DIF F absolute lymphocytes 1.3 10'3/ uL 0.7-3. 4 Not Available [facility] (Lab) [address] [place], [address], 04/05/2021 05:09:35 04/04/19 22 04/04/2021 CBC W/DIF F absolute monocytes 0.6 10'3/ uL 0.3-1. 0 Not Available [facility] (Lab) [address] [facility] [address], [place], [address], 04/05/2021 05:09:35 04/04/19 22 04/04/2021 CBC W/DIF F absolute eosinophils 0.1 10'3/ uL 0.0-0. 6 Not Available [facility] (Lab) [address], [place], [address], 04/05/2021 05:09:35 04/04/19 22 04/04/2021 CBC W/DIF F absolute basophils 0.0 10'3/ uL 0.0-0. 1 Not Available [facility] (Lab) [address] [address], [place], [address], 04/05/2021 05:09:35 04/04/19 22 04/04/2021 CBC W/DIF [...] resul ts are expec gurinder. Not Available [facility] (Lab) [address], [place], [address], 04/05/2021 05:09:35 04/04/19 22 04/04/2021 TSH, REFLE X FREE T4 TSH 1.86 uIU/m L 0.30-5 .33 Not Available [facility] (Lab) [address] [address], [place], [address], 04/05/2021 05:09:41 04/04/19 22 04/04/2021 URIC ACID uric acid 2.0 mg/dL 2.3-6. 6 low Not Available [facility] (Lab) [address] [address], [place], [address], 04/05/2021 05:09:41 04/04/19 22 04/04/2021 CMP(C OMPRE HENSI VE METAB OLIC PANEL ) sodium 139 mmol/ L 133-14 6 Not Available [facility] (Lab) [address] [address], [place], [address], 04/05/2021 05:09:41 04/04/19 22 04/04/2021 CMP(C OMPRE HENSI VE METAB OLIC PANEL ) potassium 4.0 mmol/ L 3.5-5. 1 Not Available [facility] (Lab) [address], [place], [address], 04/05/2021 05:09:41 04/04/19 22 04/04/2021 CMP(C OMPRE HENSI VE METAB OLIC PANEL ) chloride 106 mmol/ L 98-107 Not Available [facility] (Lab) [address], [place], [address], 04/05/2021 05:09:41 04/04/19 22 04/04/2021 CMP(C OMPRE HENSI VE METAB OLIC PANEL ) carbon dioxide 22 mmol/ L 21-31 Not Available [facility] (Lab) [address] [address], [place], [address], 04/05/2021 05:09:41 04/04/19 22 04/04/2021 CMP(C OMPRE HENSI VE METAB OLIC PANEL ) anion gap 11 mmol/ L 4-13 Not Available [facility] (Lab) [address] [address], [place], [address], 04/05/2021 05:09:41 04/04/19 22 04/04/2021 CMP(C OMPRE HENSI VE METAB OLIC PANEL ) blood urea nitrogen 7 mg/dL 7-25 Not Available [facility] (Lab) [address] [place], [address], 04/05/2021 05:09:41 04/04/19 22 04/04/2021 CMP(C OMPRE HENSI VE METAB OLIC PANEL ) creatinine 0.61 mg/dL 0.60-1 .30 Not Available [facility] (Lab) [address], [place], [address], 04/05/2021 05:09:41 04/04/19 22 04/04/2021 CMP(C OMPRE HENSI VE METAB OLIC PANEL ) egfrcr (CKD-epi 2020) >90 mL/mi n/1.7 3_m2 >=60 Not Available [facility] (Lab) [address], [place], [address], 04/05/2021 05:09:41 04/04/19 22 04/04/2021 CMP(C OMPRE HENSI VE METAB OLIC PANEL ) calcium 9.1 mg/dL 8.3-10 .5 Not Available [facility] (Lab) [address], [place], [address], 04/05/2021 05:09:41 04/04/19 22 04/04/2021 CMP(C OMPRE HENSI VE METAB OLIC PANEL ) glucose 88 mg/dL 70-100 Not Available [facility] (Lab) [address], [place], [address], 04/05/2021 05:09:41 04/04/19 22 04/04/2021 CMP(C OMPRE HENSI VE METAB OLIC PANEL ) protein, total 6.4 g/dL 6.4-8. 3 Not Available [facility] (Lab) [address], [place], [address], 04/05/2021 05:09:41 04/04/19 22 04/04/2021 CMP(C OMPRE HENSI VE METAB OLIC PANEL ) albumin 3.7 g/dL 3.5-5. 0 Not Available [facility] (Lab) [address], [place], [address], 04/05/2021 05:09:41 04/04/19 22 04/04/2021 CMP(C OMPRE HENSI VE METAB OLIC PANEL ) ALT 12 units /L 9-43 Not Available [facility] (Lab) [address] [facility], [place], [address], 04/05/2021 05:09:41 04/04/19 22 04/04/2021 CMP(C OMPRE HENSI VE METAB OLIC PANEL ) alkaline phosphatase 61 units /L 34-104 Not Available [facility] (Lab) [address] [address], [place], [address], 04/05/2021 05:09:41 04/04/19 22 04/04/2021 CMP(C OMPRE HENSI VE METAB OLIC PANEL ) AST 11 units /L 13-39 low Not Available [facility] (Lab) [address] [address], [place], [address], 04/05/2021 05:09:41 04/04/19 22 04/04/2021 CMP(C OMPRE HENSI VE METAB OLIC PANEL ) bilirubin, total 0.2 mg/dL 0.2-1. 2 Not Available [facility] (Lab) [address] [address], [place], [address], 04/05/2021 05:09:41 04/04/19 22 04/04/2021 PROTE IN/CR EATIN INE RATIO , URINE creatinine, urine 69.3 mg/dL R-No refer ence range estab lishe d for this assay Not Available [facility] (Lab) [address] [address], [place], [address], 04/05/2021 05:09:42 04/04/19 22 04/04/2021 PROTE IN/CR EATIN INE RATIO , URINE protein, urine 12 mg/dL R-No refer ence range estab lishe d for this assay Not Available [facility] (Lab) [address] [address], [place], [address], 04/05/2021 05:09:42 04/04/19 22 04/04/2021 PROTE IN/CR [...] fican t prote inuri a. Not Available [facility] (Lab) [address] [place], [address], 04/05/2021 05:09:42 04/12/19 22 04/12/2021 PROTE IN, 24 HOUR URINE hours collected 24.00 h Not Available [facility] (Lab) [address] [place], [address], 04/13/2021 03:57:14 04/12/19 22 04/12/2021 PROTE IN, 24 HOUR URINE total volume 2000 mL Not Available [facility] (Lab) [address] [place], [address], 04/13/2021 03:57:14 04/12/19 22 04/12/2021 PROTE IN, 24 HOUR URINE protein, urine 9 mg/dL R-No refer ence range estab lishe d for this assay Not Available [facility] (Lab) [address] [place], [address], 04/13/2021 03:57:14 04/12/19 22 04/12/2021 PROTE IN, 24 HOUR URINE protein, 24H urine 180 mg/24 h 10-150 high Not Available [facility] (Lab) [address] [place], [address], 04/13/2021 03:57:14 04/21/19 22 04/21/2021 HEMAT OCRIT (HCT) HCT 32.7 % (based on docume nted legal sex) 37.4-4 8.3 low Not Available [facility] (Lab) [address] [place], [address], 04/22/2021 05:31:55 04/21/19 22 04/21/2021 HEMOG LOBIN (HGB) HGB 10.6 g/dL (based on docume nted legal sex) 11.9-1 5.8 low Not Available [facility] (Lab) [address] [address], [place], [address], 04/22/2021 05:31:55 04/21/19 22 04/21/2021 TSH, REFLE X FREE T4 TSH 1.26 uIU/m L 0.30-5 .33 Not Available [facility] (Lab) [address] [place], [address], 04/22/2021 05:31:56 04/21/19 22 04/21/2021 GTT - GESTA MAYUR L THOM Streeter, ACOG OB glucose, 1 hour screen 133 mg/dL 70-139 Not Available [facility] (Lab) [address] [place], [address], 04/22/2021 05:31:56 04/21/19 22 04/21/2021 HIV 1/2 ANTIG EN/AN TIBOD Y, REFLE X CONFI RMATI ON HIV Ag-Ab total quant 0.06 idx <1.00 Not Available [facility] (Lab) [address] [place], [address], 04/22/2021 05:31:56 04/21/19 22 04/21/2021 HIV 1/2 ANTIG EN/AN TIBOD Y, REFLE X CONFI RMATI ON HIV Ag-Ab total Non-re active non-re active Not Available [facility] (Lab) [address] [place], [address], 04/22/2021 05:31:56 04/21/19 22 04/21/2021 HIV 1/2 ANTIG EN/AN TIBOD Y, REFLE X CONFI RMATI ON HIV-1 antibody quant 0.02 idx <1.00 Not Available [facility] (Lab) [address] [place], [address], 04/22/2021 05:31:56 04/21/19 22 04/21/2021 HIV 1/2 ANTIG EN/AN TIBOD Y, REFLE X CONFI RMATI ON HIV-1 antibody Non-re active non-re active Not Available [facility] (Lab) [address] [place], [address], 04/22/2021 05:31:56 04/21/19 22 04/21/2021 HIV 1/2 ANTIG EN/AN TIBOD Y, REFLE X CONFI RMATI ON HIV-1 antigen (P24) quant 0.06 idx <1.00 Not Available [facility] (Lab) [address] [address], [place], [address], 04/22/2021 05:31:56 04/21/19 22 04/21/2021 HIV 1/2 ANTIG EN/AN TIBOD Y, REFLE X CONFI RMATI ON HIV-1 antigen (P24) Non-re active non-re active Not Available [facility] (Lab) [address] [place], [address], 04/22/2021 05:31:56 04/21/19 22 04/21/2021 HIV 1/2 ANTIG EN/AN TIBOD Y, REFLE X CONFI RMATI ON HIV-2 antibody quant 0.01 idx <1.00 Not Available [facility] (Lab) [address] [place], [address], 04/22/2021 05:31:56 04/21/19 22 04/21/2021 HIV 1/2 [...] on will be perfo rmed by the [employer] HIV 1/2 Suppl ement al Assay . The perfo rmanc e of this assay has not been estab lishe d for neona dana and the assay shoul d not be used in indiv idual s young er than 2 years of age. Not Available [facility] (Lab) [address], [place], [address], 04/22/2021 05:31:56 04/27/19 22 04/27/2021 GTT - GESTA MAYUR L, 3 HOUR, ACOG glucose, fasting acog 76 mg/dL 70-91 Fasti ng: Y Not Available [facility] (Lab) [address] [place], [address], 04/28/2021 06:12:31 04/27/19 22 04/27/2021 GTT - GESTA MYAUR L, 3 HOUR, ACOG glucose, 1 hour acog 154 mg/dL 70-179 Fasti ng: Y Not Available [facility] (Lab) [address] [place], [address], 04/28/2021 06:12:31 04/27/19 22 04/27/2021 GTT - GESTA MAYUR L, 3 HOUR, ACOG glucose, 2 hour acog 119 mg/dL 70-154 Fasti ng: Y Not Available [facility] (Lab) [address] [facility], [place], [address], 04/28/2021 06:12:31 04/27/19 22 04/27/2021 GTT - GESTA MAYUR L, 3 HOUR, ACOG glucose, 3 hour acog 91 mg/dL 70-139 Fasti ng: Y Not Available [facility] (Lab) [address] [address], [place], [address], 04/28/2021 06:12:31 03/01/20 21 03/01/2021 US, obste tric, 2nd or 3rd trime ster No observ ation record ed. [facility] [address], [place], [address], 03/01/2021 19:07:12 03/01/20 21 03/01/2021 US, obste tric, trans vagin al No observ ation record ed. [address], [place], [address], 03/01/2021 19:07:22 03/01/20 21 03/01/2021 US, obste tric, 2nd or 3rd trime ster No observ ation record ed. [facility] [address], [place], [address], 03/01/2021 14:36:49 03/01/20 21 03/01/2021 US, obste tric, 2nd or 3rd trime ster No observ ation record ed. [facility] [address], [place], [address], 03/01/2021 14:36:50 Result Notes None recorded. Problems Name Problem SNOMED Code Status Onset Date Resolution Date Notes Provider Name and Address Organization Details Recorded Time Maternal obesity complica ting pregnanc y, childbir th and the puerperi um, antepart um 4265691512 07 Completed BMI 40+- ante testing 34w Nubia [facility], [place] - [facility] 2 23:12:08 Glucose level outside referenc e range [id number] Completed Failed 1 hr GTT, passed 3 hr GTT Nubia chowdhury, [facility] 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 17:34:19 Autoimmu ne thyroidi tis [id number] Completed 201806/21/2020 Hashimot o's thyroidi tis;Krunal rded Elsewher e: No Locat ion: [facility] S ource: E[employer] Operator liz: N Scott ce ID: [id number] Ariel lable Time: 04:00:00 PM Suma chowdhury, [facility] 17:34:13 Educatio n Completed 201806/21/2020 Encounte r for other general counseli ng on contrace ption;Re corded Elsewher e: No Locat ion: [facility] S ource: EHR [employer] Operator liz: N Zackaryti ce ID: [id number] Ariel lable Time: 04:00:00 PM Suma chowdhury [facility] 17:34:16 Pregnanc y test negative [id number] Completed 201806/21/2020 Encounte r for pregnanc y test, result negative ;Recorde d Elsewher e: No Locat ion: [facility] S ource: EHR [employer] Operator liz: N Zackaryti ce ID: [id number] Ariel lable Time: 10:15:00 AM Suma chowdhury [facility] 17:34:[address] Concept Completed 201806/21/2020 Encounte r for surveill ance of other contrace ptives;R ecorded Elsewher e: No Locat ion: [facility] S ource: EHR [employer] Operator liz: N Zackaryti ce ID: [id number] Ariel lable Time: 10:15:00 AM Suma [place], [facility] 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 1 17:34:14 Mixed anxiety and depressi ve disorder [id number] Active 2020 stable. DO NOT ASK PT ABOUT THIS UNTIL PP VISIT. SHE WILL BRING IT UP IF IT IS AN ISSUE. Nubia chowdhury, [facility] 2 23:12:08 Hashimot o thyroidi tis [id number] Active 2020 no meds since age 18. TSH 1.32 on 01/30. Repeat TSH with 28w labs Nubia chowdhury [facility] 2 23:12:08 Body mass index 40+ - severely obese [id number] Active 2020 Christina Cooper MD [address], [place], [address], [place] [facility] 1 11:45:04 RhD negative [id number] Completed 202005/05/2021 Christina Cooper MD [address], [place], [address], [place] [facility] 2 10:31:08 Hashimot o thyroidi tis [id number] Completed 2020 no meds since age 18. TSH 1.32 on 01/30. Repeat TSH with 28w labs Nubia chowdhury [facility] 2 23:12:08 Mixed anxiety and depressi ve disorder [id number] Completed 2020 stable. DO NOT ASK PT ABOUT THIS UNTIL PP VISIT. SHE WILL BRING IT UP IF IT IS AN ISSUE. Nubia chowdhury [facility] 2 23:12:07 Pregnanc y [id number] Completed 202005/24/2021 Nubia chowdhury [facility] 2 23:12:12 Anemia [id number] Completed 2021 slow 1 tab daily Nubia [facility] 2 23:12:08 Problem Notes None recorded. Procedures Surgical History Date Name Laterality Status Provider Name and Address Organization Details Recorded Time 03/11/19 Control Implant Removal completed Suzi Kraus, ELIAN- [address], [place], [address], [facility] 03/11/2020 16:38:04 Tonsillectomy completed [facility]/21[facility]2020 17:47:16 extraction of wisdom tooth completed [facility] 06/21/2020 17:47:26 Imaging Results None recorded. [...] Prescrib ed Elsewher e: Yes Loca tion: [facility] By: zofia howard DateTime : 11/27/19 [...] Prescrib ed Elsewher e: Yes Loca tion: [facility] By: zofia howard DateTime : 11/27/19 [...] Prescrib ed Elsewher e: Yes Loca tion: [facility] By: zofia howard DateTime : 11/27/19 19 04:00:00 PM Not Available Not Available Not Available Nexplanon 68 mg subdermal implant 03/11 completed Prescrib ed Elsewher e: Yes Loca tion: [facility] By: zofia howard DateTime : 12/11/19 10:15:00 AM Not Available Not Available Not Available Vitals Date Recorded Body height Body mass index (BMI) Body weight Systolic And Diastolic Systolic And Diastolic Provider Name and Address Organization Details Last Updated DateTime 04/04/2021 170.18 cm 42.4 kg/m2 282637.5 3227 g 147/89 mm[Hg] 140/90 mm[Hg] Evon Franco [facility] 14:19:45 Date Recorded Body height Body mass index (BMI) Body weight Systolic And Diastolic Provider Name and Address Organization Details Last Updated DateTime 04/21/2021 170.18 cm 42.6 kg/m2 041767.12 464 g 136/81 mm[Hg] [facility] 04/21/2021 10:22:19 Date Recorded Body height Body mass index (BMI) Body weight Systolic And Diastolic Provider Name and Address Organization Details Last Updated DateTime 05/05/2021 170.18 cm 42.9 kg/m2 508681.30 938 g 140/82 mm[Hg] [facility] 05/05/2021 10:12:51 Date Recorded Body height Body mass index (BMI) Body weight Systolic And Diastolic Provider Name and Address Organization Details Last Updated DateTime 03/01/2021 170.18 cm 41.2 kg/m2 680825.79 331 g 139/82 mm[Hg] [facility] 03/01/2021 10:38:38 Social History Question Answer Notes LastModified by Organizat ion Details LastModified Time Tobacco Smoking Status Never Smoker [email or web address]2021 10:09:35 Are You Blind Or Do You Have Difficulty Seeing? No [email or web address] Information n ot available 06/21/2020 In The 14 Days Before Symptom Onset, Have You Had Close Contact With A Laboratory-confirm ed COVID-19 While That Case Was Ill? No [email or web address] Information n ot available 06/21/2020 In The 14 Days Before Symptom Onset, Have You Had Close Contact With A Person Who Is Under Investigation For COVID-19 While That Person Was Ill? No [email or web address] Information not available 06/21/2020 Have You Been To An Area Known To Be High Risk For COVID-19? No [email or web address] Information not available 06/21/2020 Are You Deaf Or Do You Have Serious Difficulty Hearing? No [email or web address] Information not available 06/21/2020 What Type Of Diet Are You Following? REGULAR [email or web address] Information n ot available 06/21/2020 Do You Use Your Seat Belt Or Car Seat Routinely? Yes [email or web address] Information not available 06/21/2020 Sex: Unknown Functional Status Question Answer Note LastModified by Organizat ion Details LastModified Time Are you able to walk? [email or web address] Information not available 06/21/2020 What is your exercise level? Occasional [email or web address] Information not available 06/21/2020 Mental Status None recorded. Family History Relationship Description Onset Age of this Age Resolved Age Notes LastModified by Organization Details LastModified Time Maternal Aunt Disorder of thyroid gland [email or web address] Not available 2020 17:40:31 Maternal Grandmother Disorder of thyroid gland [email or web address] Not available 2020 17:40:38 Mother Disorder of thyroid gland [email or web address] Not available 2020 17:40:45 Mother Asthma [email or web address] Not available 0 06/21/2020 17:40:51 Paternal Grandfather Heart disease [email or web address] Not available 2020 17:41:11 Paternal Grandfather Diabetes mellitus Not available 2020 17:41:19 Medical History Condition Response Anxiety Disorder Y Anemia Y Thyroid Problems Y Depression/ depression Y Gynecological History Statement/Question Response Date of Last Pap Smear Current Control Method None Flow Light Date of LMP 06/22/2020 LMP Approximate Obstetrics History GPAL:G 2 P 0 0 1 0 Type Value Spontaneous 1 Total 2 Past Encounters Encounter ID Performer Location Encounter Start Date Encounter Closed Date Diagnosis/Indication Diagnosis SNOMED-CT Code Diagnosis ICD10 Code Diagnosis Note [id number] [facility] [address] [address] 03/11/2020 16:02:39 03/11/2020 16:50:50 Removal of subcutaneous contraceptive 376188486 Z30.46 Removal site was cleansed with betadine [id number] lidocaine used for anesthesia . Device was removed in normal fashion without difficulty . Steristips and pressure bandage placed. Re-schedul e for WWE [id number] [facility] [address] [address] 06/22/2020 15:26:09 06/23/2020 15:16:39 Deficient knowledge of preconception health practices 452933615 Z76.89 Today we are discussing at length, indepth the menstrual and ovulatory processes of the body. Educated thoroughly using verbal & non-verbal methods. We disccused concepts of preconcept ion and defined 'actively trying' for meant. I have directed her to the [facility] link for additional home review: https://ww w.cdc.gov/ [...] this patient s visit, including available hand tableau administrator upon arrive, temperatur e check and being asked a series of screening questions. All staff wore face coverings during this encounter, as well as provided additional cleaning and sanitizing of all surfaces, including countertop s, pens, chairs, door handles, light switches, etc, prior to and following the patient s visit. [id number] MD Rafy Colvin [address],[facility] [place] [address] 11/29/2020 10:21:00 11/29/2020 11:21:40 [id number] MD Rafy Colvin [address],[facility] [place] [address] 11/29/2020 10:22:36 11/29/2020 13:45:25 test positive 908413111 Z32.01 Body mass index 40+ - severely obese 104564086 Z68.41 Ousmane thyroiditis 21 754040 E06.3 Mixed anxi ety and depressive disorder 312471199 F41.8 RhD negative 377035636 Z 01.83 [id number] Christina Cooper MD [facility] [address],[place] [address] 01/03/2021 09:59:06 01/03/2021 11:01:14 screening 128774133 Z36.82 [id number] Christina Cooper MD [facility] [address],[place] [address] 01/03/2021 10:01:07 01/03/2021 11:05:04 Ousmane thyroiditis 16555831 E06.3 Mixed anxi ety and depressive disorder 593841392 F41.8 Body mass index 40+ - severely obese 481144975 Z68.41 Nausea and vomiting 1693 1999 R11.2 [id number] Christina Cooper MD [facility] [address],[place] [address] 01/17/2021 10:52:58 01/17/2021 11:36:42 Anxiety in 1990729611 9109 F41.9 [id number] Christina Cooper MD [facility] [address],[place] [address] 01/30/2021 10:48:12 01/30/2021 11:29:53 Routine care 426360450 Z34.91 [id number] Christina Cooper MD [facility] [address],[place] [address] 03/01/2021 09:30:45 03/01/2021 10:37:20 screening for malformation 332992117 Z36.3 [id number] MD Karly [place] [address],[place] [address] 03/01/2021 09:31:31 03/01/2021 10:54:17 Body mass index 40+ - severely obese 346916414 Z68.41 Ousmane thyroiditis 21 169959 E06.3 Mixed anxi ety and depressive disorder 500414066 F41.8 [id number] MD Rafy Colvin [address],[place] [address] 04/04/2021 14:11:19 04/04/2021 15:10:11 Mixed anxiety and depressive disorder 337498976 F41.8 Ousmane thyroiditis 21 715509 E06.3 Body mass index 40+ - severely obese 017172074 Z68.41 - induced hypertension 64072716 O13.9 [id number] Christina Cooper MD [facility] [address] [address] 04/21/2021 10:17:30 04/21/2021 10:58:25 Routine care 258162081 Z34.91 Mixed anxi ety and depressive disorder 044783227 F41.8 Ousmane thyroiditis 21 755234 E06.3 [id number] Christina Cooper MD [facility] [address],[place] [address] 05/05/2021 10:09:02 05/05/2021 10:32:33 Maternal obesity complicating , childbirth and the puerperium, antepartum 2918254361 07 O99.213 Ousmane thyroiditis 21 083358 E06.3 Mixed anxi ety and depressive disorder 748335278 F41.8 Health Concerns Section Related Observation LastModified by Organization Detai ls LastModified Time None Recorded Concern Status LastModified by Organization Details LastModified Time None Recorded Advance Directives Directive None Recorded Payers Insurance Date Sequence Insurance Name Policy Number Policy Maguire Covered Member ID Maguire Member ID Guarantor Name 05/08/2021 1 [place] 106 Yulisa Adela Mota [id number] Jennifer Tirado OBGyn Episode Ob Episode Information Episode Created Date Number of Fetuses Patient Bloodtype Patient rh Status Prepregnancy Weight lbs Domestic Partner Domestic Partner Phone Father Name Receiving Distribution Station Operator Status 01/04/20 21 1 O Positive 268 CLOSED Fetus Data First Name Last Name Admitted to NICU Weight (g) Sex Living Outcome Pediatric Complications Fetus ID Race Codes Race Delivery Type [id number] Problems Problem Notes Problem Name Start Date End Date Resolution Snomed Code Not e Ousmane thyroiditis 11/29/2020 6731170 2 no meds since age 18. TSH 1.32 on 01/30. Repeat TSH with 28w labs Maternal obesity complicating , childbirth and the puerperium, antepartum 679870557013 BMI 4 0+- ante testing 34w Mixed anxiety and depressive disorder 11/29/2020 982304178 stable. DO NOT ASK PT ABOUT THIS UNTIL PP VISIT. SHE WILL BRING IT UP IF IT IS AN ISSUE. Glucose level outside reference range 039217835 Failed 1 hr GTT, passed 3 hr GTT Anemia 04/24/2021 280097691 slow 1 ta b daily Trina Calculation [...] Date Ultra Sound Latest Days Gestation 0 [email or web address] 01/03/2021 07/11/19 22 0 Pre- Flowsheet Flowsheet Date 01/03/2021 Land Score Blood Edema Fundus Height Fundus Units Glucose Ketones Leukocytes Nitrite Labor Signs Protein Cervic Dilation Cervic Effacement Cervic Station neg none trace Type Weight in lbs Pre/Post Dialysis Refused Weight 262.626530445594 BP Diastolic BP Location Tested BP Systolic [...] Weight in lbs Pre/Post Dialysis Refused Weight 264.865245265470 BP Diastolic BP Location Tested BP Systolic [...] Weight in lbs Pre/Post Dialysis Refused Weight 263.284361322410 BP Diastolic BP Location Tested BP Systolic [...] Weight in lbs Pre/Post Dialysis Refused Weight 263.215648265137 BP Diastolic BP Location Tested BP Systolic [...] Weight in lbs Pre/Post Dialysis Refused Weight 271.366561589910 BP Diastolic BP Location Tested BP Systolic [...] Weight in lbs Pre/Post Dialysis Refused Weight 272.630769581568 BP Diastolic BP Location Tested BP Systolic [...] with us if needed.GCT and TSh today. [facility] labs wnl last week including 24 hr [...] Weight in lbs Pre/Post Dialysis Refused Weight 274.689539231345 BP Diastolic BP Location Tested BP Systolic [...] Estim ated Date of Delivery false Thalassemia (Greenlandic, Nauruan, Mediterranean, Or Background): MCV < 80 false Neural Tube Defect (Meningomyelocele, Spina Bifi da, Or Anencephaly) false Congenital Heart Defect false Down Syndrome false Gus-Sachs (eg, Hindu, Cajun, St Lucian-Uruguayan) f alse Sunny Disease false Sickle Cell Disease Or Trait () false Hemophilia Or Other Blood Disorders false Muscular Dystrophy false Cystic Fibrosis false [place]'s Chorea false Intellectual Disability/Autism false If Yes, [...] Domestic Partner Domestic Partner Phone Father Name Receiving Distribution Station Operator Status 06/22/19 21 1 CLOSED Fetus Data First Name Last Name Admitted to NICU Weight (g) Sex Living Outcome Pediatric Complications Fetus ID Race Codes Race Delivery Type , Spontane ous [id number] Trina Calculation Initial Trina Date Initial Exam [...]
--- OUTSIDE RECORDS SUMMARY | 2024-09-18 00:10 | XMS_ITS | Clinical Summary ---
Author Organization [facility] [address] Address [address] [place] [address] Care Team Providers Care Adult Live In Caregiver Name Role Phone Vince Nicole MD Unavailable [phone] Unknown, Notinfile Primary Care Provider Unavail able Keri Santana Unavailable [phone] Allergies No known active allergies Medications [...] 03/18/2023 Assessment & Plan (03/18/2023 2:29 PM MANAGER OF PROCUREMENT): URI with OM, right. Will treat with augmentin. May take otc medications for symptoms. F/u prn Morbid obesity with BMI of 40.0-44.9, adult 03/04 Assessment & Plan (03/18/2023 2:32 PM MANAGER OF PROCUREMENT): Discussed CHIP program offered through [facility]. Briefly discussed medications for obesity including phentermine, [...] (08/09/2021): Added automatically from request for surgery [id number] with 38 completed weeks gestation 06/28/2021 03/18/2023 Supervision of normal 06/27/2021 03/18/2023 Obesity complicating pregnan cy, first trimester 06/27/2021 03/18/2023 Breech presentation, no version 06/27/2021 03/18/2023 Encounters Date Type Department Care Team Description 07/31/2024 Telephone [facility] [address] [place] [address] [address] [place] [address] Bonnie Garcia CNM 07/13/2024 Orders Only [facility] at [address] [address] Bonnie Garcia CNM Acute mastitis [...] staff should administer the PHQ-9) 0 04/20/2024 [facility] - Occupational [...] things needed for daily living? No 04/20/2024 [place] Depression Scale Answer Date Recorded [place] Depression Scale Total 1 06/09/2024 The thought [...] any time in the past 12 m [facility], were you homeless or living [...] on file Legal Sex Female 9:11 AM MANAGER OF PROCUREMENT Gender Identity Not on file Sexual Orientation [...] S., MD Complications:None Delivery Location:This Facil ity ([facility] PROC[facility]) Comments:See Dr. Gabe kauffman's note 2022 Term 38w 3d 3.505 kg (7 lb 11.6 oz) M C-Sec tion Epidur al N Livin g 8 9 SHARI DELGADO Jeffr ey S., MD Complications:Other (Comment ) Delivery Location:This Facil ity ([facility] PROCEDURE) 2024 Term 37w 0d 0h 03m 0h 03m 2.795 kg (6 lb 2.6 oz) F C-Sec tion Combin ed Spinal /Epidu ral N Livin g 9 9 Michelle De Jesus MD Complications:Other Excessiv e Bleeding Delivery Location:This Facil ity ([facility] PROC[facility]) Last Filed Vital Signs Vital Sign Reading Time Taken Comments Blood Pressure 132/80 05/13/2024 1:46 PM CDT Pulse 84 04/22/2024 8:47 AM MANAGER OF PROCUREMENT Temperature 36.4 C (97.5 F) 04/22/2024 8:47 AM MANAGER OF PROCUREMENT Respiratory Rate 16 04/22/2024 8:47 AM MANAGER OF PROCUREMENT Oxygen Saturation 100% 04/22/2024 8:47 AM MANAGER OF PROCUREMENT Inhaled Oxygen Concentration - - Weight 117.5 [...] ORD ERABLES Edited Result - Final [facility] [address] Department [place] [address] from Last 3 Months or Most Recently Relevant to Health Maintenance Insurance [employer] [facility] Advance Directives For more information, please contact: [phone] * Full Code (Latest Code Status on [...] in case of cardiopulmonary arrest Care Teams Adult Live In Caregiver Relationship Specialty Start Date End Date Unknown, Notinfile PCP - General 04/15/24 Vince Nicole MD [address] [place] [address] Vacuum Tank Tender Obstetrics and Gynecology 06/30/21 Keri Santana CNM [address] [facility] [address] [place] [address] Delineator Obstetrics and Gynecology 04/22/24
--- OUTSIDE RECORDS SUMMARY | 2024-09-18 00:10 | XMS_ITS | Data Portability ---
Author Organization [facility] egional Physicians, [facility] Address [address] [facility] [place], [facility] [place] [address] Care Team Providers Care Smoke Tester Name Role Phone MARVIN OGLESBY Primary Care Provider Assessment Encounter Date Assessment Date Assessment LastModified by Organization Details LastModified Time 04/06/2019 04/06/2019 labs--other thyroid abs, RF, john, esr, full thryoid panel prior to next appt werner Not available 04/06/2019 18:21:56 Plan of Treatment Reminders Order Date Submit Date Provider Last Modified By Organization Details Last Modified Time Details Appointments None recorded. Lab T3, free, serum or plasma 2019 020 [facility] (Lab), [address] [place] [address], 44664, 0 13:22:15 T4, free, serum 2019 020 [facility] (Lab), [address] [place] [address], 51585, 0 18:56:53 TSH, serum or plasma 2019 020 [facility] (Lab), [address] [place] [address], 46701, 0 18:56:54 T4, total, serum 2019 020 [facility] (Lab), [address] [place] [address], 81406, 0 08:08:40 T3, reverse, serum 2019 [facility] (Lab), [address] [place] [address], 74011, 0 13:22:21 thyroglobu kye Ab, serum 2019 [facility] (Lab), [address] [place] [address], 16886, 0 13:22:28 vitamin D, 25-hydroxy , total, serum 2019 [facility] (Lab), [address] [place] [address], 37203, 0 12:18:04 T3, free, serum or plasma 2019 [facility] (Lab), [address] [place] [address], 36621, 0 10:34:29 T4, free, serum 2019 [facility] (Lab), [address] [place] [address], 65582, 0 15:22:31 TSH, serum or plasma 2019 [facility] (Lab), [address] [place] [address], 46328, 0 10:35:32 thyroglobu kye Ab, serum 2019 [facility] (Lab), [address] [place] [address], 47859, 0 10:34:29 T4, total, serum 2019 [facility] (Lab), [address] [place] [address], 69160, 0 10:35:32 T3, reverse, serum 2019 [facility] (Lab), [address] [place] [address], 72987, 0 10:34:29 JOHN (antinucle ar antibodies ) screen, serum 2019 [facility] (Lab), [address] [place] [address], , 0 15:22:43 rf (rheumatoi d factor), serum 2019 [facility] (Lab), [address] [place] [address], 28648, 0 15:22:44 ESR (erythrocy te sedimentat ion rate), blood 2019 [facility] (Lab), [address] [place] [address], 73750, 0 15:22:44 ccp (cyclic citrullina gurinder peptide) iga+igg, serum 2019 [facility] (Lab), [address] [place] [address], 80301, 0 15:22:44 TSH, serum or plasma 2019 [facility] (Lab), [address] [place] [address], 50182, 0 17:04:17 T4, free, serum 2019 [facility] (Lab), [address] [place], [address], 0 17:04:23 T3, free, serum or plasma 2019 [facility] (Lab), [address] [place] [address], 90964, 0 09:56:01 thyroid peroxidase (tpo) Ab, serum 2019 [facility] (Lab), [address] [place] [address], 64537, 0 09:56:15 vitamin D, 25-hydroxy , total, serum 2019 [facility] (Lab), [address] [place] [address], 13957, 0 09:56:24 vitamin B12, serum 2019 [facility] (Lab), [address] [place] [address], 53518, 0 17:04:24 CBC w/ auto diff 2019 [facility] (Lab), [address] [place] [address], 71443, 0 16:26:05 ferritin, serum or plasma 2019 [facility] (Lab), [address] [place] [address], 06398, 0 17:04:25 CMP, serum or plasma 2019 [facility] (Lab), [address] [place] [address], 27467, 0 17:04:29 Referral None recorded. Procedures None recorded. Surgeries None recorded. Imaging None recorded. Medication Orders benzonatat e 200 mg capsule 2019 020 [facility] #[id number], [address], [place], [id number], 0 12:27:57 Augmentin 875 mg-125 mg tablet 2019 020 [facility] #[id number], [address], [place], [id number], 0 12:27:57 sertraline 100 mg tablet 2019 020 [facility] #43959, [address], [place], [id number], 0 12:20:20 cholecalci ferol (vitamin D3) 1,250 mcg (50,000 unit) capsule 2019 020 [id number], [address], [place], [id number], 0 12:21:32 sertraline 100 mg tablet 2019 [facility] #53618, [address], [place], [id number], 0 12:42:08 [facility] Thyroid 30 mg tablet 2019 020 [id number], [address], [place], [id number], 0 12:36:55 sertraline 50 mg tablet 2019 020 [facility] #74283, [address], [place], [id number], 0 12:02:49 Patient TargetsNo targets recorded. Patient InstructionsNo instructions recorded. Reason for Referral None Reported. Results Created Date Observation Date Name Description Value Unit Range Abnormal Flag Note LastModifiedBy Organization Detail LastModifiedTime 03/09/19 20 03/09/2019 CBC w/ auto diff WBC 7.0 10 3.7-10 .6 Not Available [facility] (Lab) [address] [place], [address], 03/09/2019 16:26:05 03/09/19 20 03/09/2019 CBC w/ auto diff RBC 4.62 10 4.11-5 .26 Not Available [facility] (Lab) [address] [place] [address], [address], 03/09/2019 16:26:05 03/09/19 20 03/09/2019 CBC w/ auto diff HGB 12.7 g/dL 12.3-1 5.5 Not Available [facility] (Lab) [address] [place] [address], [address], 03/09/2019 16:26:05 03/09/19 20 03/09/2019 CBC w/ auto diff HCT 38.2 % 36.8-4 4.9 Not Available [facility] (Lab) [address] [place], [address], 03/09/2019 16:26:05 03/09/1903/09/2019 CBC w/ auto diff MCV 82.6 fL 78.0-1 00.0 Not Available [facility] (Lab) [address] [place], [address], 03/09/2019 16:26:05 03/09/1903/09/2019 CBC w/ auto diff MCH 27.4 pg 27.0-3 1.0 Not Available [facility] (Lab) [address] [place] [address], [address], 03/09/2019 16:26:05 03/09/19 20 03/09/2019 CBC w/ auto diff MCHC 33.2 g/dL 32.0-3 6.0 Not Available [facility] (Lab) [address] [place] [address], [address], 03/09/2019 16:26:05 03/09/19 20 03/09/2019 CBC w/ auto diff RDW 13.3 % 11.5-1 6.0 Not Available [facility] (Lab) [address] [place] [address], 31257, 03/09/2019 16:26:05 03/09/1903/09/2019 CBC w/ auto diff plt 319 10 150-45 0 Not Available [facility] (Lab) [address] [place] [address], 97158, 03/09/2019 16:26:05 03/09/1903/09/2019 CBC w/ auto diff MPV 8.2 fL 6.0-9. 5 Not Available [facility] (Lab) [address] [place] [address], 54[address], 03/09/2019 16:26:05 03/09/19 20 03/09/2019 CBC w/ auto diff neut% 64.3 % 42-75 Not Available [facility] (Lab) [address] [place] [address], 965[address], 03/09/2019 16:26:05 03/09/1903/09/2019 CBC w/ auto diff lymph% 25.9 % 16-52 Not Available [facility] (Lab) [address] [place] [address], 38898, 03/09/2019 16:26:05 03/09/1903/09/2019 CBC w/ auto diff mono% 8.1 % 1-11 Not Available [facility] (Lab) [address] [place] [address], 59043, 03/09/2019 16:26:05 03/09/19 20 03/09/2019 CBC w/ auto diff eos% 1.1 % 0-7 Not Available [facility] (Lab) [address] [place] [address], 53414, 03/09/2019 16:26:05 03/09/19 20 03/09/2019 CBC w/ auto diff baso% 0.6 % 0-4 Not Available [facility] (Lab) [address] [place] [address], 65945, 03/09/2019 16:26:05 03/09/19 20 03/09/2019 CBC w/ auto diff neutro# 4.50 10 1.5-6. 6 Not Available [facility] (Lab) [address] [place] [address], 28283, 03/09/2019 16:26:05 03/09/19 20 03/09/2019 CBC w/ auto diff lympho# 1.80 10 1.5-3. 5 Not Available [facility] (Lab) [address] [place] [address], 56435, 03/09/2019 16:26:05 03/09/19 20 03/09/2019 CBC w/ auto diff monos# 0.60 10 0.0-0. 9 Not Available [facility] (Lab) [address] [place] [address], 15497, 03/09/2019 16:26:05 03/09/19 20 03/09/2019 CBC w/ auto diff eosin# 0.10 10 0.0-0. 7 Not Available [facility] (Lab) [address] [place] [address], 04224, 03/09/2019 16:26:05 03/09/19 20 03/09/2019 CBC w/ auto diff basop# 0.00 10 0.0-0. 2 Not Available [facility] (Lab) [address] [place] [address], 61184, 03/09/2019 16:26:05 03/09/1903/09/2019 TSH, serum or plasm a TSH 1.970 uIU/m L 0.358- 3.74 Not Available [facility] (Lab) [address] [place] [address], 18097, 03/09/2019 17:04:17 03/09/19 20 03/09/2019 T4, free, serum free T4 0.89 NG/dL 0.78-1 .33 Not Available [facility] (Lab) [address] [place] [address], 86463, 03/09/2019 17:04:23 03/09/19 20 03/09/2019 vitam in B12, serum B12 444 pg/mL 193-98 6 Not Available [facility] (Lab) [address] [place] [address], 35319, 03/09/2019 17:04:24 03/09/19 20 03/09/2019 tiera tin, serum or plasm a ferritin 13.8 NG/mL 8.0-38 8.0 Not Available [facility] (Lab) [address] [place] [address], 47724, 03/09/2019 17:04:25 03/09/1903/09/2019 CMP, serum or plasm a sodium 141 mmol/ L 136-14 5 Not Available [facility] (Lab) [address] [place] [address], 72102, 03/09/2019 17:04:29 03/09/1903/09/2019 CMP, serum or plasm a potassiu 4.0 mmol/ L 3.3-5. 1 Not Available [facility] (Lab) [address] [place] [address], 72742, 03/09/2019 17:04:29 03/09/1903/09/2019 CMP, serum or plasm a chloride 113 mmol/ L 98-107 high Not Available [facility] (Lab) [address] [place], [address], 03/09/2019 17:04:29 03/09/19 20 03/09/2019 CMP, serum or plasm a CO2 22.0 mmol/ L 21-32 Not Available [facility] (Lab) [address] [facility] [place], [address], 03/09/2019 17:04:29 03/09/19 20 03/09/2019 CMP, serum or plasm a glucose 90 mg/dL 74-106 Blossom l fasti ng blood gluco se: 74-10 6 mg/dl The Ameri can Diabe dana Assoc iatio n recom mends the follo wing crite becca for the diagn osis of diabe dana 1. Sympt oms of diabe dana and a rando m gluco se >= 200 mg/dL 2. Fasti ng gluco se >= 126 mg/dL Impai red fasti ng gluco se, a fasti ng gluco se betwe en 100 and 125 mg/dL is defin ed as a categ ory at risk for futur e diabe dana and cardi ovacu lar disea se. Not Available [facility] (Lab) [address] [place], [address], 03/09/2019 17:04:29 03/09/1903/09/2019 CMP, serum or plasm a BUN 8 mg/dL 7-18 Not Available [facility] (Lab) [address] [place], [address], 03/09/2019 17:04:29 03/09/1903/09/2019 CMP, serum or plasm a creat 0.74 mg/dL 0.55-1 .02 Not Available [facility] (Lab) [address] [place], [address], 03/09/2019 17:04:29 03/09/19 20 03/09/2019 CMP, serum or plasm a calcium 9.0 mg/dL 8.5-10 .1 Not Available [facility] (Lab) [address] [place] [address], 73292, 03/09/2019 17:04:29 03/09/19 20 03/09/2019 CMP, serum or plasm a AST 14 U/L 5-34 Not Available [facility] (Lab) [address] [place] [address], 29754, 03/09/2019 17:04:29 03/09/19 20 03/09/2019 CMP, serum or plasm a ALT 24 U/L 13-56 Not Available [facility] (Lab) [address] [place] [address], 73565, 03/09/2019 17:04:29 03/09/19 20 03/09/2019 CMP, serum or plasm a alkphos 65 U/L 45-117 Not Available [facility] (Lab) [address] [place] [address], 34606, 03/09/2019 17:04:29 03/09/1903/09/2019 CMP, serum or plasm a T bossman 0.2 mg/dL 0.2-1. 0 Not Available [facility] (Lab) [address] [place] [address], 35806, 03/09/2019 17:04:29 03/09/1903/09/2019 CMP, serum or plasm a albumin 3.9 g/dL 3.2-4. 5 Not Available [facility] (Lab) [address] [place] [address], 77802, 03/09/2019 17:04:29 03/09/1903/09/2019 CMP, serum or plasm a protein 7.8 g/dL 6.4-8. 2 Not Available [facility] (Lab) [address] [place] [address], 97227, 03/09/2019 17:04:29 03/09/19 20 03/09/2019 CMP, serum or plasm a eGFR 100 Refer ence Table for [place] Mean GFR Age [place] ge GFR 20-29 116 ml/mi n/1.7 3m^2 30-39 107 ml/mi n/1.7 3m^2 40-49 99 ml/mi n/1.7 3m^2 50-59 93 ml/mi n/1.7 3m^2 60-69 85 ml/mi n/1.7 3m^2 70+ 75 ml/mi n/1.7 3m^2 Blossom l or minim al kidne y damag e with blossom l GFR >90 ml/mi n/1.7 3m^2 Mild decre ase in GFR 60-89 ml/mi n/1.7 3m^2 Moder ate decre ase in GFR 30-59 ml/mi n/1.7 3m^2 Sever e decre ase in GFR 15-29 ml/mi n/1.7 3m^2 Chron ic Kidne y Disea se less than 60 ml/mi n/1.7 3m^2 Kidne y Failu re less than 15 ml/mi n/1.7 3m^2 This calcu latio n is valid for patie nts great er than 18 years of age. Not Available [facility] (Lab) [address] [place], [address], 03/09/2019 17:04:29 03/09/19 20 03/10/2019 thyro id perox idase (tpo) Ab, serum thyroid peroxidase(t po) Ab 8 IU/mL 0-34 Perfo rmed at: CB - [facility] n [address] [facility], [place] [address] Lab Direc tor: Som conrad PhD, Phone : [phone] Not Available [facility] (Lab) [address] [place], [address], 03/10/2019 09:10:02 03/09/19 20 03/10/2019 T3, free, serum or plasm a triiodothyro nine, free 3.3 pg/mL 2.0-4. 4 Perfo rmed at: [facility] n [address] [facility], [place] [address] Lab Direc tor: Som conrad PhD, Phone : [phone] Not Available [facility] (Lab) [address] [place], [address], 03/10/2019 10:09:44 03/09/19 20 03/11/2019 vitam in D, 25-hy droxy , total , serum vitamin D, 25-hydroxy 16.5 NG/mL 30.0-1 00.0 low Vitam in D defic iency has been defin ed by the Insti tute of Medic ine and an Endoc rine Socie ty pract ice guide line as a level of serum 25-OH vitam in D less than 20 ng/mL (1,2) . The Endoc rine Socie ty went on to furth er defin e vitam in D insuf ficie ncy as a level betwe en 21 and 29 ng/mL (2). 1. IOM (Inst itute of Medic ine). 2010. Dieta ry refer ence richard es for calci um and D. Renetta coelho [place]: [facility] . 2. Rogelio maldonado MF, Yusuf chandler [place], Ivory off-F errar i [place], et al. Evalu ation , treat ment, and preve ntion of vitam in D defic iency : an Endoc rine Socie ty clini homer pract ice guide line. EM. 2010; 96(7) :1911 -30. Perfo rmed at: [facility] n [address] [place] [address] Lab Direc tor: Som conrad PhD, Phone : [phone] Not Available [facility] (Lab) [address] [place], [address], 03/11/2019 08:12:03 05/08/19 20 05/08/2019 T4, free, serum free T4 0.93 NG/dL 0.78-1 .33 Not Available [facility] (Lab) [address] [place] [address], [address], 05/08/2019 18:56:53 05/08/19 20 05/08/2019 TSH, serum or plasm a TSH 1.210 uIU/m L 0.358- 3.74 Not Available [facility] (Lab) [address] [place] [address], [address], 05/08/2019 18:56:54 05/08/19 20 05/10/2019 T3, free, serum or plasm a triiodothyro nine, free 3.5 pg/mL 2.0-4. 4 Perfo rmed at: [address] [address] Lab Direc tor: Som conrad PhD, Phone : [phone] Not Available [facility] (Lab) [address] [place] [address], [address], 05/10/2019 08:08:39 05/08/1905/10/2019 T4, total , serum thyroxine (T4) 7.5 ug/dL 4.5-12 .0 Perfo rmed at: [address] [address] Lab Direc tor: Som conrad PhD, Phone : [phone] Not Available [facility] (Lab) [address] [place] [address], [address], 05/10/2019 08:08:40 05/08/1905/11/2019 vitam in D, 25-hy droxy , total , serum vitamin D, 25-hydroxy 27.4 NG/mL 30.0-1 00.0 low Vitam in D defic iency has been defin ed by the Insti tute of Medic ine and an Endoc rine Socie ty pract ice guide line as a level of serum 25-OH vitam in D less than 20 ng/mL (1,2) . The Endoc rine Socie ty went on to furth er defin e vitam in D insuf ficie ncy as a level betwe en 21 and 29 ng/mL (2). 1. IOM (Inst itute of Medic ine). 2010. Dieta ry refer ence intak es for calci um and D. Renetta coelho [place]: [facility] . 2. Rogelio maldonado MF, Yusuf chandler [place], Ivory off-F margie i [place], et al. Evalu ation , treat ment, and preve ntion of vitam in D defic iency : an Endoc rine Socie ty clini homer pract ice guide line. JCEM. 2010; 96(7) :1911 -30. Perfo rmed at: - [facility] [address] [place] [address] Lab Direc tor: Som conrad PhD, Phone : [phone] Not Available [facility] (Lab) [address] [place], [address], 05/11/2019 09:08:18 05/08/19 20 05/12/2019 thyro globu kye Ab, serum thyroglobuli n antibody <1.0 SENT TO REFER ENCE LAB, SEE OSMEL Quesada. Not Available [facility] (Lab) [address] [place], [address], 05/12/2019 12:10:52 05/08/19 20 05/13/2019 T3, rever se, serum reverse T3 17.2 NG/dL 9.2-24 .1 This test was devel oped and its perfo rmanc e jeni cteri stics deter mined by [facility]. It has not been clear ed or appro ruth by the Food and Drug Admin istra tion. Perfo rmed at: - [facility] [place] [address] [place] [address] Lab Direc tor: Jenifer mcbride MD, Phone : [phone] Not Available [facility] (Lab) [address] [place], [address], 05/13/2019 10:09:58 Result Notes None recorded. Problems Name Problem SNOMED Code Status Onset Date Resolution Date Notes Provider Name and Address Organization Details Recorded Time Peptic ulcer 54792737 Active 2019 Josefina Yousif LPN null, [facility] 0 11:37:08 Postural orthostatic tachycardia syndrome 125466663 Active 2019 Josefina Yousif LPN null, [facility] 0 11:38:47 Mixed anxiety and depressive disorder 556372290 Active 2019 Josefina Yousif LPN null, [facility] 0 11:39:02 Hypothyroidism due to Ousmane's thyroiditis 007805107 Active 2019 Josefina Yousif LPN null, [facility] 0 11:50:48 Problem Notes None recorded. Procedures Surgical History Date Name Laterality Status Provider Name and Address Organization Details Recorded Time Tonsillectomy and/or Adenoidectomy completed Josefina Yousif LPN [facility] 03/09/2019 11:41:03 Ear Tube Placement completed Felix Yousif [facility] 03/09/2019 11:41:25 Unlisted px dentalvlr strux completed Josefina Yousif [facility] 03/09/2019 11:41:51 Imaging Results None recorded. Procedure Notes None recorded. Medical Equipment None Reported. Allergies No known drug allergies Medications Name Sig Start Date Stop Date Status Note LastModified by Organization Details LastModified Time benzonatate 200 mg capsule TK 1 C PO TID active Not Available Not Available No t Available sertraline 100 mg tablet TK 1 AND 1/2 TS PO D active Not Available Not Available No t Available omeprazole 20 mg capsule,del ayed release Take 1 capsule every day by oral route. active Not Available Not Available No t Available Redrock Thyroid 30 mg tablet TK 1 T PO QD active Not Available Not Available No t Available sertraline 50 mg tablet TK 1 T PO QD 05/07 completed Not Available Not Available Not Available amoxicillin 875 mg-potassiu m clavulanate 125 mg tablet TK 1 T PO Q 12 H active Not Available Not Available No t Available Implanon 68 mg subdermal implant Inject by subcutane ous route. active Not Available Not Available No t Available cholecalcif cj (vitamin D3) 1,250 mcg (50,000 unit) capsule TK 1 C PO Q WK FOR 12 WEEKS. active Not Available Not Available No t Available Vitals Date Recorded Body height Body temperature Body mass index (BMI) Body mass index (BMI) [Percentile] Per age and sex Body weight Heart rate Respiratory rate Oxygen saturation Oxygen saturation in Arterial blood by Pulse oximetry Systolic And Diastolic Provider Name and Address Organization Details Last Updated DateTime 0 170.18 cm 98.2 [degF] 43.2 kg/m2 99 % 596030. 49 g 96 /min 20 /min 98 % 98 % 120/80 mm[Hg] Josefina Yousif [facility] 0 11:35:26 Date Recorded Body height Body mass index (BMI) Body mass index (BMI) [Percentile] Per age and sex Body weight Body temperature Heart rate Respiratory rate Oxygen saturation Oxygen saturation in Arterial blood by Pulse oximetry Systolic And Diastolic Provider Name and Address Organization Details Last Updated DateTime 0 170.18 cm 42.4 kg/m2 99 % 502205. 53 g 98 [degF] 88 /min 20 /min 98 % 98 % 120/80 mm[Hg] Josefina Yousif [facility] 0 11:58:05 Date Recorded Body height Body mass index (BMI) [Percentile] Per age and sex Body mass index (BMI) Body weight Body temperature Heart rate Respiratory rate Oxygen saturation Oxygen saturation in Arterial blood by Pulse oximetry Systolic And Diastolic Provider Name and Address Organization Details Last Updated DateTime 0 170.18 cm 99 % 42.9 kg/m2 531414. 31 g 98 [degF] 84 /min 20 /min 98 % 98 % 120/80 mm[Hg] Josefina Yousif LPN [facility] 0 12:01:53 Social History Question Answer Notes LastModified by Organizat ion Details LastModified Time Tobacco Smoking Status Never Smoker Josefina Yousif [place], [place] - [facility] 03/09/2019 11:40:36 In The 14 Days Before Symptom Onset, Did The Patient Spend Time In [facility]? No Information not available 04/06/2019 Have You Been To An Area Known To Be High Risk For COVID-19? No Information not available 05/08/2019 What Was The Date Of Your Most Recent Tobacco Screening? 03/09/2019 Information not available 03/09/2019 Sex: Unknown Functional Status Question Answer Note LastModified by Organizat ion Details LastModified Time Do you or have you ever used smokeless tobacco? Never used smokeless tobacco Information not available 03/09/2019 Do you or have you ever used e-cigarettes or vape? Never used electronic cigarettes Information not available 03/09/2019 Mental Status None recorded. Family History Relationship Description Onset Age of this Age Resolved Age Notes LastModified by Organization Details LastModified Time Father Peptic ulcer [email or web address] Not avail able 03/09/2019 11:37:23 Maternal Grandfather Arthritis vdavison Not available 08/2019 11:39:53 Maternal Grandfather Cerebrovascu lar accident vdavison Not available 08/2019 11:40:29 Paternal Grandfather Malignant neoplasm of lung vdavison Not available 2019 11:40:10 Paternal Grandfather Cerebrovascu lar accident vdavison Not available 08/2019 11:40:29 Paternal Aunt Malignant neoplasm of lung vdavison Not available 2019 11:40:10 Medical History No medical history recorded. Gynecological HistoryNo gynecological history recorded. Obstetrics History GPAL:G 0 P 0 0 0 0 Past Encounters Encounter ID Performer Location Encounter Start Date Encounter Closed Date Diagnosis/Indication Diagnosis SNOMED-CT Code Diagnosis ICD10 Code Diagnosis Note [id number] Marvin Oglesby MD [facility] [address] [place] [address] 03/09/2019 11:24:08 03/09/2019 13:11:42 Hypothyroidism due to Ousmane's thyroiditis 502134276 E06.3 Discussed this in detail with her. Also discussed importance of reducing inflammati on to thyroid gland through anti-infla mmatory diet and supplement s such as zinc and selenium. Discussed medication options with her including synthetic T4, T3/T4, and dessicated thyroid and that there is a possibilit y of increase in thyroglobu kye antibodies . She would like to try Redrock. Will start 15mg x 1 week then increase to 30mg if tolerating OK. Labs done today, will call with results. WIll plan on repeat labs in 3 labs. Mixed anxi ety and depressive disorder [id number] F41.8 Has been on Sertraline and Lexapro in the past. Will try Sertraline again. R/SE/B discussed. Her mother is on both Sertraline and Wellbutrin and this works well for her. Will f/u in 1 month and may consider adding Wellbutrin depending on how she is doing. No SI/HI Fatigue [id number] R53.83 Will check labs. Suspect that most of her symptoms are due to untreated hypothyroi dism and depression /anxiety. [id number] Marvin Oglesby MD [facility] [address] [facility] [address] 04/06/2019 11:51:27 04/06/2019 12:54:03 Vitamin D deficiency [id number] E55.9 Low vit D on labs. Will start her on replacemen t therapy. Mixed anxi ety and depressive disorder [id number] F41.8 Slight improvemen t but continues to be an issue. Will increase Sertraline to see how she does with this. F/U in 1 month. Consider adding Wellbutrin if not improving. Pain of mu ltiple joints [id number] M25.50 Possibly due to anxiety/de pression, possible auto-immun e, possible fibromyalg ia. Discussed anti-infla mmatory diet and may take oral anti-infla mmatories if need. Will check labs with next blood draw Hypothyroi dism due to Ousmane's thyroiditis [id number] E06.3 Labs overall unremarkab le. Discussed this in detail with her. Also discussed importance of reducing inflammati on to thyroid gland through anti-infla mmatory diet and supplement s such as zinc and selenium. Will check other thyroid ab labs and additional thyroid studies with next set of bloodwork. Will also obtain her prior labs from when she was originally diagnosed. [id number] [facility] [address] [place] [address] 04/08/2019 09:28:56 04/08/2019 10:07:34 Tuberculosis screening [id number] Z11.1 Negative result, arm was bruse from injection [id number] MD [facility] [address] [place] [address] 05/08/2019 11:51:51 05/08/2019 12:55:45 Mixed anxiety and depressive disorder [id number] F41.8 Slight improvemen t but continues to be an issue. Will increase Sertraline to 150mg to see how she does with this. F/U in 1 month. Consider adding Wellbutrin if not improving. Hypothyroi dism due to Ousmane's thyroiditis [id number] E06.3 Labs overall unremarkab le. Discussed this in detail with her. Also discussed importance of reducing inflammati on to thyroid gland through anti-infla mmatory diet and supplement s such as zinc and selenium. Will recheck thyroid panel and additional antibodies . Acute sinusitis [id number] J01.90 Start Augmentin given duration and treat cough with tessalon pipo Vitamin D deficiency [id number] E55.9 Low vit D on labs. Will start her on replacemen t therapy. Health Concerns Section Related Observation LastModified by Organization Detai ls LastModified Time None Recorded Concern Status LastModified by Organization Details LastModified Time None Recorded Advance Directives Directive None Recorded Payers Insurance Date Sequence Insurance Name Policy Number Policy Maguire Covered Member ID Maguire Member ID Guarantor Name 05/08/2019 1 [employer] [id number] Yulisa Mota [id number] Jennifer Talbert Notes Date Note Type Note Provider Name a nd Address Organization Details Recorded Time 03/09/2019 text/html Jennifer is here today with her mother to establish. She has several issues that she would like to discuss. 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 She has been on Levothyroxine in the past for thyroid, states that she did not feel any different with taking it. Her mother and several other family members with same, do better on Redrock. She would like to try this. She currently is not taking anything and it has been several yrs since she has had labs/medication. Also with depression and anxiety that are affecting her functioning. She is not in school or working at this time. She has low motivation, low self esteem, feels depressed most of the time, does not want to get out of the house and do things, has anxiety and panic with leaving house. She has been on Sertraline and Lexapro in the past. She also has been treated for PTSD with unknown medication due to difficulty coping with uncle committing suicide. She denies any SI/HI. She also has a lot of other vague symptoms including difficulty with weight loss, irritable bowel with diarrhea, frequent urination, dizziness, fatigue, nausea, palpitations. Marvin Oglesby MD [address], [place], [address], [facility] 03/10/2019 19:02:09 04/06/2019 text/html Jennifer is here today with her mother for follow up. She is feeling slightly better since starting Sertraline, has applied for a job which is something that she would not have been able to do previously. Anxiety slightly improved, depression unchanged. She still has low motivation and low self esteem. She is not having any side effects to the medication. She is also taking Redrock 30 mg daily. Has not noticed change in symptoms since starting this. She is tolerating well. Continues to struggle with her weight. She also has a lot of joint pain, specifically shoulders, hips. No injuries, new activities, over-exertion. Marvin Oglesby MD [address], [place], [address], [facility] 04/06/2019 18:30:36 05/08/2019 text/html Jennifer is here today with c/o ear pain and deep cough with congestion and sinus congestion x 2 weeks. 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 Went to walk in clinic and swabbed neg for influenza and strep. Jennifer is here today with her mother for follow up. 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 Anxiety slightly improved, depression slightly improved. She still has low motivation and low self esteem. She is not having any side effects to the medication. She is also taking Redrock 30 mg daily. Has not noticed change in symptoms since starting this. She is tolerating well. Continues to struggle with her weight. Marvin Oglesby MD [address] , [place], [address], [facility] 05/08/2019 16:46:20 OBGyn Episode No OBEpisode recorded.
--- OUTSIDE RECORDS SUMMARY | 2024-09-18 00:10 | XMS_ITS | Referral Summary ---
Author Organization [facility] [address] Address [address] [place] [address] Care Team Providers Care Media Arts Professor Name Role Phone Vince Nicole MD Unavailable [phone] Unknown, Notinfile Primary Care Provider Unavail able Keri Santana CN Unavailable [phone] Encounters Date Type Department Care Team Description 07/31/2024 Telephone [facility] [address] [place] [address] Bonnie Garcia CNM 07/13/2024 Orders Only [facility] [address] [place] [address] Bonnie Garcia CNM Acute mastitis [...] 03/18/2023 Assessment & Plan (03/18/2023 2:29 PM EXCHANGE ARCHITECT): URI with OM, right. Will treat with augmentin. May take otc medications for symptoms. F/u prn Morbid obesity with BMI of 40.0-44.9, adult 03/04 Assessment & Plan (03/18/2023 2:32 PM EXCHANGE ARCHITECT): Discussed CHIP program offered through [facility]. Briefly discussed medications for obesity including phentermine, [...] (08/09/2021): Added automatically from request for surgery [id number] with 38 completed weeks gestation 06/28/2021 03/18/2023 [...] than three times a week 04/20/2024 Attends [employer] Not on file 04/20 Active Member [...] staff should administer the PHQ-9) 0 04/20/2024 [facility] - Occupational [...] things needed for daily living? No 04/20/2024 Sidney Depression Scale Answer Date Recorded Sidney Depression Scale Total 1 06/09/2024 The thought [...] any time in the past 12 m [facility], were you homeless or living in a long-term (including now)? No 04/20/2024 Personal Safety Answer Date Recorded Have you ever been in or are you currently in a harmful physical or emotional relationship or is someone making you feel afraid or unsafe? Denies 04/20/2024 Comments No Sex and Gender Information Value Date Recorded Sex Assigned at Not on file Legal Sex Female 9:11 AM EXCHANGE ARCHITECT Gender Identity Not on file Sexual Orientation Not on file Last Filed Vital Signs Vital Sign Reading Time Taken Comments Blood Pressure 132/80 05/13/2024 1:46 PM CDT Pulse 84 04/22/2024 8:47 AM EXCHANGE ARCHITECT Temperature 36.4 C (97.5 F) 04/22/2024 8:47 AM EXCHANGE ARCHITECT Respiratory Rate 16 04/22/2024 8:47 AM EXCHANGE ARCHITECT Oxygen Saturation 100% 04/22/2024 8:47 AM EXCHANGE ARCHITECT Inhaled Oxygen Concentration - - Weight 117.5 [...] ORD ERABLES Edited Result - Final [facility] [address] Department [place] [address] from Last 3 Months or Most Recently Relevant to Health Maintenance Insurance [place] [employer] [place] [facility] Advance Directives For more information, please contact: [phone] * Full Code (Latest Code Status on [...] in case of cardiopulmonary arrest Care Teams Media Arts Professor Relationship Specialty Start Date End Date Unknown, Notinfile PCP - General 04/15/24 Vince Nicole MD [address] [place] [address] Public Safety Police Obstetrics and Gynecology 06/30/21 Keri Santana CNM [address] [place] [address] Cable Operator Obstetrics and Gynecology 04/22/24
--- NOTE | 2024-09-18 06:32 | WPDHPUPDATE1 ---
History and Physical Update Update Date/Time: 09/18/24 06:32 History and Physical has been reviewed, including an updated exam of the patient. There are NO changes in the patient's condition. Risks, benefits, and alternatives have been discussed and questions answered. Patient agrees to proceed with procedure. The patient opts for supracervical hysterectomy bilateral salpingectomy risks and benefits reviewed in great detail
--- NOTE | 2024-09-18 09:27 | WPDANESEPPF ---
Anes - Initial Pre Proc Eval Procedure: Operation Date: 09/18/24 13:30 Proposed Procedures p Robotic Assisted Supracervical Hysterectomy with Bilateral Salpingectomy - Arsenio Candelario MD <Salvatore Avilez, DO - Last Filed: 10/01/24 18:13> Date/Time: 09/18/24 09:27 <Salvatore Avilez, DO - Last Filed: 10/01/24 18:13> Surgeon: Arsenio Candelario MD <Salvatore Avilez, DO - Last Filed: 10/01/24 18:13> Pre Op Diagnosis: pain, irreg bleeding, enlarged uterus <Salvatore Avilez DO - Last Filed: 10/01/24 18:13> Patient Data Age: 24 Gender: F Height: 1.7 m Weight: 122.47 kg <Salvatore Avilez, DO - Last Filed: 10/01/24 18:13> Allergies Allergy/AdvReac Type Severity Reaction Status Date / Time No Known Allergies Allergy Verified 09/18/24 12:09 <Salvatore Avilez DO - Last Filed: 10/01/24 18:13> Home Medications ?Medication ?Instructions ?Recorded ?Confirmed ?Type prenat.vits,homer,dmg-cxrs-tbvgs 1 tablet PO DAILY 12/07/21 09/18/24 History ferrous sulfate 325 mg (65 mg 325 mg PO DAILY 01/11/22 09/18/24 History iron) tablet (FeroSul) hydrocodone 5 mg-acetaminophen 325 1 tablet PO Q4H PRN pain #20 tabs 09/18/24 Rx mg tablet <Salvatore Avilez, DO - Last Filed: 10/01/24 18:13> Patient hx anesthesia problems: none <Yulisa Ballesteros CRNA - Last Filed: 09/18/24 13:48> Family hx anesthesia problems: none <Yulisa Ballesteros CRNA - Last Filed: 09/18/24 13:48> Results Review: All pre-operative results and documents have been reviewed as part of the pre-operative evaluation. <Salvatore Avilez, DO - Last Filed: 10/01/24 18:13> PMFSH Past Medical History Medical History: Medical History Pre-eclampsia PONV (postoperative nausea and vomiting) Ousmane's disease Duodenal ulcer disease Concussion without loss of consciousness, initial encounter <Salvatore Avilez DO - Last Filed: 10/01/24 18:13> Surgical History Surgical History: Surgical History H/O dilation and curettage (~08/2021) H/O: (~06/28/21) <Salvatore Avilez DO - Last Filed: 10/01/24 18:13> Family History Family History: Family History Mother Family history of thyroid disease Patient's mother is in good health Grandparent Family history of lung cancer Father Patient's father is in good health Sibling Patient's brother is in good health <Salvatore Avilez DO - Last Filed: 10/01/24 18:13> Social History Social History: Social History Smoking status: Never smoker Alcohol intake: never Substance use: never Substance use type: does not use Lack of Transportation: No Lack of Food: Never True Current Housing: I Have Housing Concerned About Future Housing: No Difficulty Paying Gas/Electric Bills: No Difficulty Paying for Meds: No Currently Unemployed: No Education: Associate Degree Difficulty w/ Childcare or Family Care: No Living arrangements: with family Additional living arrangements comments: Occupation/Education: student Gender identity (if verbalized by the patient): Female Sexual Orientation (if Verbalized by the Patient): Straight or Heterosexual Spiritual care concerns: No <Salvatore Avilez DO - Last Filed: 10/01/24 18:13> Anes - Eval Final PreProcedure Day of Procedure 09/18/24 09:27 <Salvatore Avilez DO - Last Filed: 10/01/24 18:13> Patient weight: morbidly obese <Yulisa Ballesteros CRNA - Last Filed: 09/18/24 13:48> Heart: regular rate and rhythm <Yulisa Ballesteros CRNA - Last Filed: 09/18/24 13:48> Lungs: clear to auscultation <Yulisa Ballesteros CRNA - Last Filed: 09/18/24 13:48> Airway: Mallampati scale class 1 <Yulisa Ballesteros CRNA - Last Filed: 09/18/24 13:48> Neurological: alert and oriented <Yulisa Ballesteros CRNA - Last Filed: 09/18/24 13:48> Last oral intake: >/= 8 hours <Yulisa Ballesteros CRNA - Last Filed: 09/18/24 13:48> ASA classification: III <Yulisa Ballesteros CRNA - Last Filed: 09/18/24 13:48> Emergent: no <Yulisa Ballesteros CRNA - Last Filed: 09/18/24 13:48> Anesthetic plan: proceed <Yulisa Ballesteros CRNA - Last Filed: 09/18/24 13:48> Anesthesia type and monitoring: general ETT and standard monitoring <Yulisa Ballesteros CRNA - Last Filed: 09/18/24 13:48> Results Review: All pre-operative results and documents have been reviewed as part of the pre-operative evaluation. <Salvatore Avilez DO - Last Filed: 10/01/24 18:13> Informed Consent: The patient's anesthetic plan and its attendant risks and benefits were discussed with the patient/family/POA. Questions were solicited and answers provided to the satisfaction of the patient/family/POA. <Salvatore Avilez DO - Last Filed: 10/01/24 18:13>
[2024-09-18 12:13] LABS: BEDSIDEPREGUCG Negative (Negative)
[2024-09-18] MEDS: ACETAMINOPHEN 500 MG TABLET 1000 MG PO ×2 (12:20→17:52)
[2024-09-18] MEDS: LACTATED RINGERS 1,000 ML 30 ML IV CONT ×2 (12:40→15:41)
[2024-09-18] MEDS: KETOROLAC 15 MG/ML VIAL (*BKC) IV PUSH (12:42)
[2024-09-18] MEDS: ceFAZolin 3 GM/D5W 100 ML 100 ML IVPB (13:54)
--- NOTE | 2024-09-18 14:55 | S_PTH ---
PATIENT: Jennifer Tirado LOC: [facility] U#:[id number] AGE/SX: 24/F ROOM: RE09/18/[address]: Arsenio Candelario MD : 2000 BED: DIS: 09/18/2024 SPEC #: [id number] RECD: 09/21/24 07:53 STATUS: OTF REQ #: [id number] ARIS: 09/18/24 14:[address]: Arsenio Linares DEPT: [facility] Surgical RECD BY: Emerald Arita ENTERED: 09/21/24 07:53 SP TYPE: Surgical OTHR DR: Aditi Carpio, [employer] Tissues: A - Uterus Procedures: Hematoxylin and Eosin Stain Gross and Microscopic Level 5
--- NOTE | 2024-09-18 15:29 | W.PM.PROC2 ---
Procedure Note - Detailed Date of Procedure 09/18/24 Pre-op Diagnosis pain, irreg bleeding, enlarged uterus Post-op Diagnosis Same Procedure Performed Robotic supracervical hysterectomy bilateral salpingectomy Surgeon Arsenio Candelario MD Anesthesia General Indications 24-year-old female with the very poor maternal history with bleeding with previous C-sections week window. Supervisor Phosphoric Acid history of heavy bleeding Findings Uterus was enlarged with a lot of scar tissue. Ovaries and tubes appeared within normal limits Description of Procedure The patient is prepped draped in normal sterile fashion placed in dorsal lithotomy position. Under excellent general endotracheal anesthesia weighted speculum placed in posterior fornix vagina. Anterior lip of the cervix grasped with a single-tooth tenaculum. Uterus sounded to 10cm. Serial dilatation with fragmented dilators performed followed by passage of the 8. SRINIVASAN and the 3. Cold cup. Next the 16 Bermudian catheter was placed in the bladder to drain the bladder of clear urine weighted speculum and the single-tooth gloves were changed. A supraumbilical incision made the Veress needle passed in the abdomen. Abdomen filled with CO2 gas [id number]. The 8mm trocar advanced in the abdomen downside visualized no injury seen. Patient placed in Trendelenburg and right left lateral quadrant incisions made the 8mm trocar advanced in the right upper quadrant assuring no injury and the robot was docked. Attention was turned to the personal financial counselor. The bladder was noted be markedly scarred to the anterior portion of the uterus so the round ligament on the left was grasped, burned, cut. Layer by layer the bladder peritoneal tissue was dissected until the bladder could be retracted caudally away from the cervix uterus the opposite round which was clamped, burned, cut. Next the left fallopian tube was skeletonized clamped burned and cut and left attached to its uterine origin. The right fallopian tube was sharply dissected away from the ovarian complex and left attached to its uterine origin. Next to conserve the left ovary the utero-ovarian ligament on the left was clamped, burned, cut brought to level of previously cut round ligament. Conserving the ovary on the right. The utero-ovarian ligament was clamped, burned, cut brought to level of previously cut round ligament. The cardinal broad ligaments on the left were serially skeletonized clamping burning cutting and bringing this to the level of the uterine vessels. They were individually clamped, burned, cut. In similar fashion on the right the cardinal broad ligaments were skeletonized clamping burning cutting and bringing this to level of the uterine vessels on the right these were large and tortuous and individually clamped, burned, cut. Blanching of the uterus was noted supracervical incision was made. The uterus was then bivalved and placed in 2 bags. These bags were brought piecemeal through the stab supraumbilical incision. The robot was undocked and the gas removed from the abdomen the incisions closed with 4 Monocryl and glue. The patient went to recovery in satisfactory condition. All sponge, needle, instrument counts were correct. There were no immediate complications noted Estimated Blood Loss 25 Drains No Packing No Pathology Yes Complications No immediate complications Condition Stable Disposition PACU
--- NOTE | 2024-09-18 15:34 | P.DS_ITS ---
DS: Admitting Diagnosis Discharge Date 09/18/2024 Admitting Diagnosis Excessive bleeding/enlarged uterus DS: Discharge Diagnosis Discharge Diagnosis (1) Excessive bleeding: Code(s): R58 - Hemorrhage, not elsewhere classified Status: Acute (2) Enlarged uterus: Code(s): N85.2 - Hypertrophy of uterus Status: Acute DS: Summary Hospital Course Reason for hospitalization: Patient was admitted for robotic supracervical hysterectomy bilateral salpingectomy on 09/18/2024 Hospital Course: Patient's hospital course unremarkable. She remained afebrile. She was up, voiding without difficulty, eating regular diet, ambulating, and generally without complaints. Time Spent with Patient Time attestation: Total time spent providing and/or coordinating discharge services: Exam Const: General: cooperative and comfortable Nutritional Appearance: obese Orientation/consciousness: oriented to person, oriented to place and oriented to time HENMT: Head: normal to inspection Resp: Effort & Inspection: normal respiratory effort Cardio: Rate: regular rate Rhythm: regular rhythm Heart sounds: S1 normal heart sound present and S2 normal heart sound present GI: Inspection: normal to inspection : External Female Exam: normal external appearance Speculum Exam - Vagina: normal appearance of the vagina Speculum Exam - Cervix: normal appearance of the cervix Bimanual exam- vagina & uterus: boggy, enlarged and Uterine tenderness Bimanual Exam- Adnexa, other: normal adnexae DS: Data Data Completed and Pending Pending studies at discharge: Pending at discharge 09/18/24 14:55 Surgical [PTH] Routine Labs on day of discharge: Labs from last 24 hours 09/18/24 12:11 POC Urine HCG, Qual Negative Discharge Plan Discharge Patient Disposition: Home Patient Instructions: Laparoscopic Hysterectomy (DC) Patient Language: Congolese Stand Alone Forms: General Discharge Instructions Follow-up/Referrals: Arsenio Linares MD [Physician] - 2 Weeks Discharge Orders: Discharge Order (Routine); Ordered 09/18/24 Ordered By: Arsenio Candelario Discharge Medications: New hydrocodone-acetaminophen 5-325 mg tablet 1 tablet PO Q4H PRN (Reason: pain) Qty: 20 0RF No Action prenat.vits,homer,ftw-xwze-mqeyn Tablet 1 tablet PO DAILY ferrous sulfate [FeroSul] 325 mg (65 mg iron) tablet 325 mg PO DAILY
[2024-09-18] MEDS: SCOPOLAMINE 1 MG PATCH 1 PATCH TRANSDERM (15:41)
--- NOTE | 2024-09-18 17:00 | PC.NURSE ---
This patient, Jennifer Tirado, was received from PACU on 09/18/24 at 1700. Patient/family oriented to unit policies and routines
[2024-09-18] MEDS: DEXTROSE 5%/LACTATED RINGERS 1,000 ML 125 ML IV CONT (17:50)
[2024-09-18] MEDS: SIMETHICONE 80 MG TAB.CHEW PO (17:50)
[2024-09-18] MEDS: KETOROLAC 30 MG/ML VIAL (*BKC) IV PUSH (17:52)
--- NOTE | 2024-09-18 19:07 | PC.NURSE ---
1840- This RN spoke with Dr. Genna Candelario for d/c order, order given.
== END 2024-09-18 20:50 | disposition home or self-care (01) ==
LOC: ANHSURGERY 11:45 → ANHOB2 17:22
PROVIDERS: Visit Provider Obstetrics & Gynecology
PROC: (CPT 58542; principal; 2024-09-18 13:30)
DX: N93.9 Abnormal uterine and vaginal bleeding, unspecified (principal); R10.2 Pelvic and perineal pain; N84.0 Polyp of corpus uteri
CPT/HCPCS: 58542; S2900; 88307; 99199; A9270; J0690; J1100; J1171; J1200; J1885; J2003; J2250; J2405; J2704; J3010; J7030; J7120; J7121

== ENCOUNTER 2024-10-24 22:27 | Emergency (ER) | payer BC, SELFPAY ==
--- NOTE | ~2024-10-24 | CT_ITS ---
EXAMINATION: CT abdomen pelvis w con DATE: 10/25/2024 00:44 INDICATION: Right lower quadrant TECHNIQUE: Computed tomography (CT) of the abdomen and pelvis was performed with 100 cc Omnipaque 350 intravenous contrast. The dose-length product was 1466.08 mGy-cm. Automated exposure control and iterative reconstruction technique were employed. COMPARISON: CT dated 05/07/2016 FINDINGS: Lung bases unremarkable. Heart size normal. No significant pleural or pericardial effusion. Fatty infiltration of the liver. The spleen, pancreas, adrenal glands and kidneys are unremarkable. Gallbladder is present. Nonobstructive bowel gas pattern. No significant vascular abnormality. No lym phadenopathy. Normal appendix. No free air or free fluid. There is sclerosis along the sacroiliac joints bilaterally symmetrically, consistent with sacroiliitis. IMPRESSION: 1. No acute abdominal abnormality. Reviewed, dictated and finalized at location O.
[2024-10-24 22:31] VITALS: BP 157/101; PULSE 92; RESP 18; TEMP 36.6; O2SAT 100
[2024-10-24 22:46] LABS: Hematocrit 35.0 % (37.0-47.0); Hemoglobin 11.0 g/dL (12.0-15.0); Immature Granulocyte Percent A 0.5 % (0-0.5); Lymphocytes Absolute Auto 1.90 K/mm3 (0.9-3.2); Mean Corpuscular HGB Conc 31.4 g/dl (32-36); Mean Corpuscular Hemoglobin 25.4 pg (26-34); Mean Corpuscular Volume 80.8 fl (80-100); Nucleated Red Blood Cells Absolute Auto 0.000 K/mm3 (0.0-0.012); Nucleated Red Blood Cells Perc 0.0 % (0.0-0.2); Platelet Count Result 245 k/mm3 (150-375); Red Blood Count 4.33 M/mm3 (4.2-5.4); White Blood Count 6.5 K/mm3 (4.5-10.0)
[2024-10-24 22:55] LABS: Magnesium 1.7 mg/dL (1.6-2.3)
[2024-10-24] MEDS: SODIUM CHLORIDE 0.9% IV 1,000 ML 999 ML IV CONT (23:00)
[2024-10-24] MEDS: MORPHINE SULFATE (*CRX) 2 MG/ML INJ IV PUSH (23:00)
[2024-10-24] MEDS: ONDANSETRON INJ 4 MG/2 ML VIAL IV PUSH (23:01)
--- NOTE | 2024-10-24 23:11 | ED_ITS ---
HPI - Abdominal Pain General Chief Complaint: Abdominal Pain Stated Complaint: R abd pain, hysterectomy 4 weeks ago Time Seen by Provider: 10/24/24 22:30 History of Present Illness HPI narrative: Patient is a 24-year-old female who presents to the emergency department this evening complaining of right lower quadrant abdominal pain which started around 3:00 p.m.. Patient states that approximately 4 weeks ago she had a laparoscopic hysterectomy performed by Dr. Genna Candelario. Patient states since then she has been fine until today. She did call the OB hotline and they prompted her to come to the emergency department for further evaluation. Admits to nausea and vomiting as well. States the pain feels like menstrual cramping. Denies any hematuria, dysuria, or any vaginal discharge or bleeding. No additional symptoms or concerns at this time. Related Data Home Medications ?Medication ?Instructions ?Recorded ?Confirmed ?Last Taken ?Type prenat.vits,homer,ffz-inpz-nkbcd 1 tablet PO DAILY 12/0709/18/24 09/15/24 History ferrous sulfate 325 mg (65 mg 325 mg PO DAILY 01/11/22 09/18/24 09/15/24 History iron) tablet (FeroSul) Allergies Allergy/AdvReac Type Severity Reaction Status Date / Time No Known Allergies Allergy Verified 09/18/24 12:09 Review of Systems 2 Review of Systems: All systems are reviewed and are negative unless stated otherwise in the HPI. [facility] Past Medical History Medical History Pre-eclampsia PONV (postoperative nausea and vomiting) Ousmane's disease Duodenal ulcer disease Concussion without loss of consciousness, initial encounter Surgical History Surgical History H/O dilation and curettage (~08/2021) H/O: (~06/28/21) Family History Family History Mother Family history of thyroid disease Patient's mother is in good health Grandparent Family history of lung cancer Father Patient's father is in good health Sibling Patient's brother is in good health Social History Social History Smoking status: Never smoker Alcohol intake: never Substance use: never Substance use type: does not use Lack of Transportation: No Lack of Food: Never True Current Housing: I Have Housing Concerned About Future Housing: No Difficulty Paying Gas/Electric Bills: No Difficulty Paying for Meds: No Currently Unemployed: No Education: Associate Degree Difficulty w/ Childcare or Family Care: No Living arrangements: with family Additional living arrangements comments: Occupation/Education: student Gender identity (if verbalized by the patient): Female Sexual Orientation (if Verbalized by the Patient): Straight or Heterosexual Spiritual care concerns: No Exam 2 Narrative: General: Alert, awake, afebrile, in no acute distress. HEENT: PERRL, no rhinorrhea, no post nasal drip, oropharynx clear. Neck: Trachea midline, no JVD, no lymphadenopathy. Cardiovascular: Regular rate and rhythm, no murmurs, rubs or gallops, no peripheral edema. Respiratory: Clear to auscultation bilaterally, no tachypnea, no wheezing, no rhonchi, no rubs, no respiratory distress. Abdomen: Soft, mild tenderness palpation over the suprapubic and right lower quadrant, nondistended, no rebound, no guarding, no peritoneal signs. Musculoskeletal: No joint swelling or deformity, normal muscle tone. Skin: No rashes or petechia, no signs of infection. Psychiatric: Alert and oriented, normal behavior and judgment for situation. Neurological: Alert and oriented to person, place, and time. Follows all commands. No focal deficits, speech is clear and fluent. Course Vital Signs Vital signs: Vital Signs Temperature 97.8 F 10/24/24 22:31 Pulse Rate 92 10/24/24 22:31 Respiratory Rate 18 10/24/24 22:31 Blood Pressure 157/101 H 10/24/24 22:31 Pulse Oximetry 100 10/24/24 22:31 Oxygen Delivery Room Air 10/24/24 22:31 Temperature 97.8 F 10/24/24 22:31 Pulse Rate 84 10/25/24 02:00 Respiratory Rate 18 10/25/24 02:00 Blood Pressure 145/89 H 10/25/24 02:00 Pulse Oximetry 99 10/25/24 02:00 Oxygen Delivery Room Air 10/24/24 22:31 MDM - Abdominal Pain MDM Narrative Medical decision making narrative: The patient was evaluated by myself in the emergency department. History is obtained from patient who is an independent historian and physical exam was performed. External medical records were reviewed at this time. IV was established and pertinent tests were ordered. Patient was administered 2 mg of IV morphine and 4 mg of IV Zofran. Patient continues to complain of nausea and at this time she was administered 10 mg IV Reglan and 25 mg of IV Benadryl. Laboratory results obtained revealing no acute process. Urinalysis unremarkable. Imaging studies obtained included CT abdomen pelvis with IV contrast which was independently interpreted by me revealing no acute process, normal appendix, which is pending final radiology interpretation. Differential diagnosis considerations include appendicitis, pyelonephritis, nephrolithiasis, postsurgical complication. Comorbidities impacting this visit include recent hysterectomy 4 weeks ago. I have evaluated and discussed social determinants of health with the patient that could potentially impact subsequent diagnosis and treatment plans. On repeat assessment of the patient, reevaluation revealed that the patient is doing well and is in no acute distress. Patient symptoms have improved since she arrived to our emergency department. Repeat vital signs were all reviewed and noted to be stable. Differential diagnosis and treatment plan were discussed with the patient at bedside. Patient agrees with discussion and after shared medical decision making agrees with discharge. All questions were answered to the patient's satisfaction. Patient will follow up with her OBGYN in 3-5 days. Patient was provided with strict return precautions and instructed to return to the emergency department if any new or worsening symptoms develop. The patient was discharged in stable condition. Lab Data 10/24/24 22:40 10/24/24 22:40 Labs: Lab Results 10/24/24 10/24/24 Range/Units 22:40 23:42 WBC 6.5 (4.5-10.0) K/mm3 RBC 4.33 (4.2-5.4) M/mm3 Hgb 11.0 L (12.0-15.0) g/dL Hct 35.0 L (37.0-47.0) % MCV 80.8 (80-100) fl MCH 25.4 L (26-34) pg MCHC 31.4 L (32-36) g/dl RDW 13.6 (11.5-14.5) % Plt Count 245 (150-375) k/mm3 MPV 9.3 (7.4-10.4) fl Immature Gran % (Auto) 0.5 (0-0.5) % Neut % (Auto) 57.6 (45.5-73.1) % Lymph % (Auto) 29.3 (18.3-44.2) % [place] % (Auto) 10.0 H (2.6-8.5) % Eos % (Auto) 2.0 (0-4.4) % Baso % (Auto) 0.6 (0.2-1.2) % Lymph # (Auto) 1.90 (0.9-3.2) K/mm3 [place] # (Auto) 0.7 H (0.1-0.6) K/mm3 Eos # (Auto) 0.1 (0-0.3) K/mm3 Baso # (Auto) 0.0 (0.0-0.1) K/mm3 Abs Immat Gran (auto) 0.03 (0.00-0.031) K/mm3 Absolute Neuts (auto) 3.7 (1.3-6.7) K/mm3 Absolute Nucleated RBC 0.000 (0.0-0.012) K/mm3 Nucleated RBC % 0.0 (0.0-0.2) % Sodium 140 (137-145) mmol/L Potassium 4.0 (3.4-5.0) mmol/L Chloride 107 (98-107) mmol/L Carbon Dioxide 22 (22-30) mmol/L Anion Gap 11 (4-12) mmol/L BUN 8 (7-17) mg/dL Creatinine 0.63 L (0.7-1.0) mg/dL Estim Creat Clear Calc 162 ml/min Estimated GFR > 60 (59 - ) Glucose 95 (65-110) mg/dL Calcium 9.4 (8.4-10.2) mg/dL Magnesium 1.7 (1.6-2.3) mg/dL Total Bilirubin 0.3 (0.2-1.3) mg/dL AST 32 (14-36) U/L ALT 32 (6-35) U/L Alkaline Phosphatase 57 (38-126) U/L Total Protein 7.7 (6.3-8.2) g/dL Albumin 4.6 (3.5-5.1) g/dL Lipase 60 (23-300) U/L Urine Color Yellow (Yellow) Urine Appearance Cloudy H (Clear) Urine pH 6.5 (5.0-9.0) Ur Specific [place] 1.020 (1.001-1.035) Urine Protein Negative (Negative) mg/dL Urine Glucose (UA) Negative (Negative) mg/dL Urine Ketones Negative (Negative) mg/dL Ur Blood (Man) Negative (Negative) Urine Nitrate Negative (Negative) Urine Bilirubin Negative (Negative) Urine Urobilinogen 0.2 (<2.0) mg/dL Leukocyte Esterase Rfl Negative (Negative) SHER/UL Urine RBC 0-2 (0-2) /hpf Urine WBC 0-5 (0-3) /hpf Ur Squamous Epith Cells None seen (Few) /hpf Urine Bacteria None seen /hpf Urine Casts 0-2 Discharge Plan Discharge Clinical Impression: Abdominal pain Patient Disposition: Home Condition: Improved Instructions: Antibiotic Form, Abdominal Pain (ED) Additional Instructions: Please follow-up with the family doctor/endocrinologist within the next 3-5 days. Return to the ED if any new or worsening symptoms develop. Patient Language: Croatian Prescriptions: No Action prenat.vits,homer,rjw-mdyj-kpxqy Tablet 1 tablet PO DAILY ferrous sulfate [FeroSul] 325 mg (65 mg iron) tablet 325 mg PO DAILY hydrocodone-acetaminophen 5-325 mg tablet 1 tablet PO Q4H PRN (Reason: pain) Qty: 20 0RF Follow-up/Referrals: Arsenio Linares MD [Physician, [facility]] - 3 Days Shirin,Aditi Vazquez APRN [Primary Care Provider, Unknown] - 3 Days Time of Disposition: 05:13
--- OUTSIDE RECORDS SUMMARY | 2024-10-24 23:21 | XMS_ITS | Clinical Summary ---
Author Organization [facility] Address [address] [place] [address] Care Team Providers Care Voice Network Administrator Name Role Phone Lola Oglesby MD Primary Care Provider [phone] Ebony Patton DO Unavailable [phone] Source Comments [facility],non-owned Affiliates and Associated Physician Practices is amultiple site organization consisting of ambulatory clinics and hospital sitesin [place], [place]. This disclosure is being madepursuant to the Care Everywhere program and may not contain all information available regarding this patient. Last updated 17.[facility] Allergies No known active allergies Medications * [...] on file Legal Sex Female 5:41 AM RACING MECHANIC Gender Identity Not on file Sexual Orientation Not on file Last Filed Vital Signs Vital Sign Reading Time Taken Comments Blood Pressure 117/68 01/23/2021 6:03 PM RACING MECHANIC Pulse 98 01/23/2021 6:03 PM RACING MECHANIC Temperature 36.4 C (97.5 F) 01/23/2021 6:03 PM RACING MECHANIC Respiratory Rate 18 01/23/2021 6:03 PM RACING MECHANIC Oxygen Saturation 99% 01/23/2021 6:03 PM RACING MECHANIC Inhaled Oxygen Concentration 100% 08/08/2011 1 :35 AM CDT Weight 122 kg (269 lb) 07/22/2020 2:08 PM CDT Height 170.2 cm (5' 7) 04/26/2020 5:17 PM RACING MECHANIC Body Mass Index 42.13 04/26/2020 5:17 PM RACING MECHANIC Plan of Treatment Health Maintenance Due Date [...] - 2023-2 5 season) 2023 12/07/2020, 11/16/2020 PAP SMEAR 11/30/2023 11/29/2020 DEPRESSION SCREENING 03/04/2024 INFLUENZA VACCINE (#1) 2024 [...] patient's age to complete this topic Insurance [facility] SELF PAY NO INSURANCE Member Subscriber Plan / Payer (Ef fective for All Dates) Name:Jennifer Delgado Member ID:Not on file Relation to Subscriber:Not on file Name:JENNIFER DELGADO Subscriber ID:Not on file (Home) Address: [address] [place] [id number] Payer ID:Not on file Group ID:Not on file Type:Self Pay Address: [place], [place] Care Teams Voice Network Administrator Relationship Specialty Start Date End Date Lola Oglesby MD [address] [phone] PCP - General Family Medicine 04/25/19 Ebony Patton DO [address] [phone] 04/25/19
--- OUTSIDE RECORDS SUMMARY | 2024-10-24 23:21 | XMS_ITS | Clinical Summary ---
Author Organization [facility] Address [address] [place] [address] Phone Care Team Providers Care Legislative Aide Name Role Phone Provider, Not On File Primary Care Provider Unav ailable Allergies No known active allergies Medications No known medications Social History Tobacco Use Types Packs/Day Years Used Date Smoking Tobacco: Never Smokeless Tobacco: Never Tobacco Cessation:Counseling Given: Not Answered Comments Unknown Sex and Gender Information Value Date Recorded [...] patient's age to complete this topic Insurance [facility] Care Teams Legislative Aide Relationship Specialty Start Date End Date Provider, Not On File [place] PCP - General 12/20/23
--- OUTSIDE RECORDS SUMMARY | 2024-10-24 23:22 | XMS_ITS | Clinical Summary ---
Author Organization [facility] [address] Address [address] [place] [phone] Care Team Providers Care Hand Bobbin Cleaner Name Role Phone Vince Nicole MD Unavailable [phone] Unknown, Notinfile Primary Care Provider Unavail able Keri Santana Unavailable [phone] Allergies No known active allergies Medications [...] 03/18/2023 Assessment & Plan (03/18/2023 2:29 PM FOOD SAFETY COORDINATOR): URI with OM, right. Will treat with augmentin. May take otc medications for symptoms. F/u prn Morbid obesity with BMI of 40.0-44.9, adult 03/04 Assessment & Plan (03/18/2023 2:32 PM FOOD SAFETY COORDINATOR): Discussed CHIP program offered through [facility]. Briefly discussed medications for obesity including phentermine, [...] (08/09/2021): Added automatically from request for surgery [id number] with 38 completed weeks gestation 06/28/2021 03/18/2023 Supervision of normal 06/27/2021 03/18/2023 Obesity complicating pregnan cy, first trimester 06/27/2021 03/18/2023 Breech presentation, no version 06/27/2021 03/18/2023 Encounters Date Type Department Care Team Description 07/31/2024 Telephone [facility] [address] [phone] Bonnie Garcia CNM from Last 3 Months Immunizations Immunization Administration [...] isolatio n Never 03/18/2024 Social Connection and Isolation Panel Answer Date Recorded In a typical week, how many times do you talk on the phone with family, friends, or neighbors? More than three times a week 04/20/2024 How often do you get togethe r with friends or relatives? More than three times a week 04/20/2024 Attends [employer] Not on file 04/20 Active Member [...] staff should administer the PHQ-9) 0 04/20/2024 [facility] of Occupat ional [facility] - Occupational Stress Questionnaire Answer Date Recorded [...] things needed for daily living? No 04/20/2024 [place] Depression Scale Answer Date Recorded [place] Depression Scale Total 1 06/09/2024 The thought [...] any time in the past 12 m [facility], were you homeless or living in a [...] on file Legal Sex Female 9:11 AM FOOD SAFETY COORDINATOR Gender Identity Not on file Sexual Orientation Not on file Obstetrics History Para Term AB IAB SAB Ectopic Multiple Livin g Live Births 4 3 3 1 1 0 3 3 Date Outcome GA Total Labor Labor//3rd Weight Sex Type Anes PTL Angela A1 A5 Name Clin SAB 6w0 d 2021 Term 38w 2d 1h 02m 1h 02m 3.185 kg (7 lb 0.4 oz) F CS-LT ranv Epidur al N Livin g 5 9 SAYRA DELGADO Jeffr ey S., MD Complications:None Delivery Location:This Facil ity ([facility] L AND D PROCEDURE) Comments:See Dr. Gabe kauffman's note 2022 Term 38w 3d 3.505 kg (7 lb 11.6 oz) M C-Sec tion Epidur al N Livin g 8 9 SHARI DELGADO Jeffr ey S., MD Complications:Other (Comment ) Delivery Location:This Facil ity ([facility] L AND D PROCEDURE) 2024 Term 37w 0d 0h 03m 0h 03m 2.795 kg (6 lb 2.6 oz) F C-Sec tion Combin ed Spinal /Epidu ral N Livin g 9 9 Michelle De Jesus MD Complications:Other Excessiv e Bleeding Delivery Location:This Facil ity ([facility] L AND D PROCEDURE) Last Filed Vital Signs Vital Sign Reading Time Taken Comments Blood Pressure 132/80 05/13/2024 1:46 PM CDT Pulse 84 04/22/2024 8:47 AM FOOD SAFETY COORDINATOR Temperature 36.4 C (97.5 F) 04/22/2024 8:47 AM FOOD SAFETY COORDINATOR Respiratory Rate 16 04/22/2024 8:47 AM FOOD SAFETY COORDINATOR Oxygen Saturation 100% 04/22/2024 8:47 AM FOOD SAFETY COORDINATOR Inhaled Oxygen Concentration - - Weight 117.5 kg (259 lb) 06/09/2024 2:39 PM CDT Height 170.2 cm (5' 7.01) 06/09/2024 2:39 PM CD T Body Mass Index 40.56 06/09/2024 2:39 PM CDT Plan of Treatment Health Maintenance Due Date Last Done Comments Cervical Cancer Screening 1999 Varicella Vaccines (2 of 2 - 2-dose childhood series) 06/07/2004 06/20/2000 Regular Well Visit/Exam 18-64 2017 Covid-19 Vaccine (3 - 2023-2 5 season) 2023 12/07/2020, 11/16/2020 Influenza Vaccine (#1) 2024 Depression Screening 06/09/2025 06/09/2024, 04/07/2024, 04/07/2024, Additional history exists DTaP/Tdap/Td Vaccine (11 - T d or Tdap) 03/11/2034 03/11/2024, 08/21/2022, 05/09/2021, Additional history exists Hepatitis B Screening Completed 06/20/2000 , 1999, 1999 Pneumococcal vaccine <65 Completed 11/01/2000, 06/02 HPV Vaccines Completed 09/29/2010, 09/2009, 05/21/2008 Hepatitis C Screening Completed 10/04/2023, 023 [...] 1:59 PM CDT 10/04/2023 7:17 PM CDT K[facility] MICROBIOLOGY - GENERAL ORD ERABLES Edited Result - Final [facility] [address] [place] [address] from Last 3 Months or Most Recently Relevant to Health Maintenance Insurance [employer] [place] [facility] [employer] Advance Directives For more information, please contact: [phone] * Full Code (Latest Code Status on [...] in case of cardiopulmonary arrest Care Teams Hand Bobbin Cleaner Relationship Specialty Start Date End Date Unknown, Notinfile PCP - General 04/15/24 Vince Nicole MD [address] [facility] [address] [place] [address] Railroad Surveyor Obstetrics and Gynecology 06/30/21 Keri Santana CNM [address] [facility] [address] [place] [address] Visual Merchandising Associate Obstetrics and Gynecology 04/22/24
[2024-10-24] MEDS: METOCLOPRAMIDE HCL INJ 10 MG/2 ML VIAL IV PUSH (23:47)
[2024-10-24 23:54] LABS: Add Urine Microscopic? YES; Appearance Urine Cloudy (Clear); Glucose Urine UA Negative (Negative); Leukocyte Esterase Ur Negative LEU/UL (Negative); Nitrate Urine Negative (Negative); Non Pathogenic Casts 0-2; Specific Grav Ur 1.020 (1.001-1.035)
[2024-10-25 00:21] LABS: Alanine Aminotransferase 32 U/L (6-35); Albumin Level 4.6 g/dL (3.5-5.1); Alkaline Phosphatase 57 U/L (38-126); Anion Gap 11 mmol/L (4-12); Aspartate Amino Transferase 32 U/L (14-36); Bilirubin,Total 0.3 mg/dL (0.2-1.3); Blood Urea Nitrogen 8 mg/dL (7-17); Calcium 9.4 mg/dL (8.4-10.2); Carbon Dioxide 22 mmol/L (22-30); Chloride 107 mmol/L (98-107); Estimated CRCL calculation 162 ml/min; Estimated Glomerular Filt Rate > 60; Glucose 95 mg/dL (65-110); Lipase 60 U/L (23-300); Potassium 4.0 mmol/L (3.4-5.0); Sodium 140 mmol/L (137-145); Total Protein 7.7 g/dL (6.3-8.2)
[2024-10-25 02:00] VITALS: BP 145/89; PULSE 84; RESP 18; O2SAT 99
[2024-10-25] MEDS: ONDANSETRON INJ 4 MG/2 ML VIAL IV PUSH (02:50)
[2024-10-25] MEDS: ACETAMINOPHEN 500 MG TABLET 1000 MG PO (04:07)
== END 2024-10-25 05:23 | disposition home or self-care (01) ==
PROVIDERS: Emergency Provider Emergency Medicine
DX: R10.31 Right lower quadrant pain (principal); Z90.710 Acquired absence of both cervix and uterus; E06.3 Autoimmune thyroiditis
CPT/HCPCS: 36415; 74177; 80053; 81001; 83690; 83735; 85025; 96361; 96374; 96375; 96376; 99284; A9270; J1200; J2270; J2405; J2765; J7030; Q9967